=== PATIENT | female | born 1955 | race Caucasian/White ===

== ENCOUNTER 2020-08-25 11:38 | Outpatient (REF) | payer OTHER, SELFPAY ==
[2020-08-25 13:32] LABS: MANUAL DIFF FLAG NO
[2020-08-25 13:38] LABS: Basophils Percent Auto 0.3 % (0-2); Eosinophils Absolute Auto 0.1 X10*3/uL (0.0-0.4); Eosinophils Percent Auto 0.9 % (0-4); Hematocrit 47.2 % (37-47); Imm Gran Abs Auto 0.03 X10*3/uL (0.00-0.03); Imm Gran Pct Auto 0.2 % (0.0-0.4); Lymphocytes Absolute Auto 3.8 X10*3/uL (1.2-4.9); Lymphocytes Percent Auto 28.4 % (20-40); Mean Corpuscular HGB Conc 33.9 g/dl (31.0-35.0); Mean Corpuscular Hemoglobin 30.5 pg (27.0-33.0); Mean Corpuscular Volume 89.9 fL (80-98); Monocytes Absolute Auto 0.8 X10*3/uL (0.1-1.2); Monocytes Percent Auto 5.9 % (2-11); Neutrophils Absolute Auto 8.5 X10*3/uL (2.0-8.3); Neutrophils Percent Auto 64.3 % (45-73); Platelet Count 320 X10*3/uL (160-400); Red Blood Count 5.25 X10*6/uL (4.20-5.50); Red Cell Distribution Width 13.3 % (11.0-16.0); White Blood Count 13.2 X10*3/uL (4.8-10.8)
[2020-08-25 14:12] LABS: Alanine Aminotransferase 16 U/L (0-31); Albumin Level 4.1 g/dL (3.5-5.0); Alkaline Phosphatase 96 U/L (39-117); Anion Gap 14 (12-20); Aspartate Amino Transferase 18 U/L (5-31); Bilirubin Total 0.5 mg/dL (0.0-1.0); Blood Urea Nitrogen 9 mg/dL (9-16); Calcium 8.6 mg/dL (8.4-10.2); Carbon Dioxide 33 mmol/L (22-29); Chloride 92 mmol/L (96-108); Estimated Glomerular Filt Rate > 60; Glucose Fasting 86 mg/dL (60-99); Magnesium 2.1 mg/dL (1.6-2.6); Potassium 3.3 mmol/l (3.3-5.1); Sodium 136 mmol/L (135-145); Total Protein 6.4 g/dL (6.5-8.0)
[2020-08-25 14:23] LABS: Free T4 (Free Thyroxine) 1.07 ng/dL (0.71-1.85); Thyroid Stimulating Hormone 0.52 mIU/mL (0.32-4.0)
[2020-08-25 14:27] LABS: Erythrocyte Sedimentation Rate 12 MM/HR (0-20)
== END 2020-08-25 11:39 | disposition home or self-care (01) ==
LOC: HO.10HDL 11:38
PROVIDERS: PCP Internal Medicine Medical Oncology; Visit Provider Internal Medicine Medical Oncology
DX: I82.409 Acute embolism and thrombosis of unspecified deep veins of unspecified lower extremity (principal); I10 Essential (primary) hypertension; E66.3 Overweight; E78.5 Hyperlipidemia, unspecified
CPT/HCPCS: 36415; 80053; 83735; 84439; 84443; 85025; 85652

== ENCOUNTER 2020-12-07 15:29 | Outpatient (REF) | payer OTHER, SELFPAY | END 2020-12-07 15:30 | disposition home or self-care (01) | LOC: HO.LNP 15:29 | PROVIDERS: Visit Provider Internal Medicine Medical Oncology | DX: H11.441 Conjunctival cysts, right eye (principal); H10.9 Unspecified conjunctivitis | CPT/HCPCS: 87070; 87205 ==

== ENCOUNTER 2021-02-23 14:14 | Outpatient (REF) | payer OTHER, SELFPAY ==
--- NOTE | ~2021-02-23 | MM_ITS ---
EXAMINATION: MM SCREENING DIGITAL BREAST TOMOSYNTHESIS, BILATERAL CLINICAL INFORMATION: Screening. Asymptomatic. 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 Family history breast cancer, mother. The lifetime risk of breast cancer based on the Tyrer-Cuzick Model is 25%. COMPARISON: Mammography: 09/03/2017, and multiple prior exams dating back to 01/04/2010 TECHNIQUE: Digital breast tomosynthesis is performed in both the craniocaudal and mediolateral oblique views along with computer-aided detection (CAD). Synthesized 2D images are generated from the tomosynthesis. FINDINGS: There are scattered areas of fibroglandular density (ACR BI-RADS breast composition Category b). There are no significant masses, abnormal calcifications, or other abnormalities. The axilla and skin contours are unremarkable. There are no significant changes from prior study. MM/MM tomosynthesis screening BI IMPRESSION: No mammographic evidence of malignancy. ASSESSMENT: BI-RADS 1: Negative RECOMMENDATION: 1. Routine annual mammography screening. 2. The lifetime risk of breast cancer based on the Tyrer-Cuzick Model is 25%. Additional annual adjunct screening with breast MRI may be of benefit in women with a risk score of 20% or greater. This patient's information was entered into a reminder system with a target due date for their next mammogram.
== END 2021-02-23 14:15 | disposition home or self-care (01) ==
LOC: HO.MAMMO 14:14
PROVIDERS: PCP Internal Medicine Medical Oncology; Visit Provider Internal Medicine Medical Oncology
DX: Z12.31 Encounter for screening mammogram for malignant neoplasm of breast (principal)
CPT/HCPCS: 77063; 77067

== ENCOUNTER 2022-05-31 15:42 | Outpatient (REF) | payer OTHER, SELFPAY ==
--- NOTE | ~2022-05-31 | MR_ITS ---
EXAMINATION: MR LUMBAR SPINE WITHOUT CONTRAST CLINICAL INFORMATION: Bilateral lower extremity tingling and weakness. Low back pain. COMPARISON: MRI dated 08/21/2019. TECHNIQUE: MRI of the lumbar spine was obtained using routine sequences without contrast. FINDINGS: VERTEBRAL BODIES AND PARASPINAL STRUCTURES: There is a [id number] rightward curvature of the lumbar spine centered at the L1-L2 level. A suspected subacute superior endplate compression fracture is present at the L1 level with minimal bony retropulsion and a mild loss of vertebral body height. No additional compression deformities are seen. There are no subluxations. There is what may represent a bone island in the left L3 pedicle, hypointense on T1-T2 weighted imaging and measuring 9 mm in diameter. Chronic fatty marrow degenerative endplate changes and significant right-sided disc space narrowing evident at the L5-S1 level. CONUS MEDULLARIS AND CAUDA EQUINA: Normal, terminating at the level of L1. No lower cord signal abnormality is seen. The cauda equina nerve roots are normal. SPINAL LEVELS: T12-L1: Mild degenerative disc bulge present without central canal stenosis. Mild facet arthropathy without foraminal encroachment. L1-L2: No significant disc pathology. Mild facet arthrosis. No central canal stenosis or foraminal narrowing. L2-L3: No disc pathology. Patent central canal and foramina. L3-L4: No disc abnormality. Mild facet arthrosis. No central canal stenosis or foraminal encroachment. L4-L5: Minimal annular bulge. No central canal stenosis. Moderate right foraminal narrowing. L5-S1: Mild facet arthropathy and disc bulge with endplate spurring. Mild right foraminal encroachment. MR/MR lumbar spine wo con IMPRESSION: Mild superior endplate compression deformity at the L1 level with minimal bony retropulsion and mild marrow edema, potentially subacute in age. Recommend clinical correlation. Moderate degenerative disc disease lateralized to the right side at the L5-S1 level with mild right foraminal narrowing. Moderate right foraminal encroachment due to bulging disc and osseous spurring at the L4-L5 level.
== END 2022-05-31 15:43 | disposition home or self-care (01) ==
LOC: HO.MRI 15:42
PROVIDERS: Visit Provider Internal Medicine Medical Oncology
DX: M54.16 Radiculopathy, lumbar region (principal)
CPT/HCPCS: 72148

== ENCOUNTER 2022-08-23 15:21 | Outpatient (REF) | payer OTHER, SELFPAY ==
[2022-08-24 06:12] LABS: CT PCR NOT DETECTED (Not Detect.); NG PCR NOT DETECTED (Not Detect.)
[2022-08-29 16:02] LABS: HPV mRNA E6/E7 rflx Not Detected (Not Detected)
== END 2022-08-23 15:22 | disposition home or self-care (01) ==
LOC: HO.LNP 15:21
PROVIDERS: Visit Provider Advanced Practice Midwife
DX: Z01.419 Encounter for gynecological examination (general) (routine) without abnormal findings (principal); R82.90 Unspecified abnormal findings in urine; Z72.0 Tobacco use; Z20.2 Contact with and (suspected) exposure to infections with a predominantly sexual mode of transmission
CPT/HCPCS: 81003; 87491; 87591; 87624; 88142

== ENCOUNTER → 2022-08-31 14:53 | Outpatient (BNVA) | payer OTHER, SELFPAY | PROVIDERS: PCP Internal Medicine Medical Oncology; Referring Provider Internal Medicine Medical Oncology; Visit Provider Internal Medicine Cardiovascular Disease | DX: R07.89 Other chest pain (principal); R06.02 Shortness of breath | CPT/HCPCS: 93005; 99202 ==

== ENCOUNTER → 2022-09-20 12:49 | Outpatient (REF) | payer OTHER, SELFPAY ==
--- NOTE | 2022-09-20 12:52 | CA_ITS ---
Transthoracic Echocardiogram Patient (Last, First, Middle): Jackie Mazariegos, Gender: Female Date of : 1955 Age: 66 Procedure Date: 09/20/2022 Procedure Type: Transthoracic Echocardiogram Location: OP Height: 154.94 cm Weight: 66.23 kg BSA: 1.65 m2 Heart Rate: 96 bpm BP: 120 / 80 mmHg Staff Software Engineer: SB Referring MD: Calin Dent MD Symptoms: R06.02 - Shortness of breath Study Quality: Fair but adequate ECG Rhythm: Sinus Conclusions: - The left ventricular systolic function is normal. The calculated ejection fraction is 60% by biplane method. - No obvious valvular pathology seen on this study. Findings Left Ventricle Normal left ventricular cavity size. There is normal left ventricular wall thickness. The left ventricular systolic function is normal. The calculated ejection fraction is 60% by biplane method. There is no evidence of regional wall motion abnormalities. Diastolic function is normal for age. Right Ventricle Normal right ventricular cavity size. There is normal right ventricular systolic function. (measurement not accurate). Atria Both atria are normal in size. Aortic Valve There is a normal trileaflet aortic valve. There is no aortic valve stenosis. There is no aortic valve regurgitation. Mitral Valve The mitral valve appears normal. There is no mitral valve regurgitation. There is no mitral valve stenosis. Pulmonic Valve The pulmonic valve is likely normal. Tricuspid Valve Normal tricuspid valve structure. There is trace tricuspid valve regurgitation. There is no evidence of pulmonary hypertension. Great Vessels The asc aorta is normal in size. Venous The inferior vena cava is normal in size and collapses greater than 50% with inspiration. Pericardium/Pleural There is no evidence of pericardial effusion. Prior Study Comparison No significant change compared to prior study dated: 06/08/2020. Recommendations, Care & Conclusions No obvious valvular pathology seen on this study. Measurements 2D Linear Measurements IVSd: 1.00 0.6-0.9/0.6-1.0 cm LVIDd: 3.08 3.9-5.3/4.2-5.9 cm LVIDd Index: 1.87 2.4-3.2/2.2-3.1 cm/m2 LVIDs: 2.17 2.0-3.6 cm Ao Root: 3.10 2.1-3.5 cm LA Diam: 3.20 2.7-3.8/3.0-4.0 cm LAIDs Index: 1.94 1.5-2.3 cm/m2 LVOT Diam: 1.90 3.0+(-)1.3 cm 2D Systolic Function EF 4C: 61.50 >55% EF 2C: 57.80 >55% EF BiP: 59.50 >55% Mitral Valve MV Pk E: 0.79 MV PK A: 0.90 MV Decel Time: 161.00 E/A: 0.90 E'Lateral: 8.62 E'Medial: 8.83 E/E' Med: 8.90 E/E' Lat: 9.10 PHT: 47.00 MVA PHT: 4.68 Decel Luna: 4.89 Aortic Valve AoV Pk Flaco: 1.69 AoV Mn Flaco: 1.08 AoV VTI: 0.30 AoV Pk Grad: 11.00 Aov Mn Grad: 6.00 ALIVIA Cont.VTI: 2.69 LVOT LVOT Pk Flaco: 1.48 LVOT Mn Flaco: 1.01 LVOT VTI: 0.28 LVOT Pk Grad: 9.00 LVOT Mn Grad: 5.00 LVOT Diam: 1.90 LVOT Area: 2.84 Diastolic Function MV Pk E: 0.79 MV Pk A: 0.90 E/A: 0.90 E'Medial: 8.83 E/E' Med: 8.90 E' Laterial: 8.62 E/E' Lat: 9.10 Right Ventricle TAPSE (mm): 23.00 TVS' Flaco: 12.30 Tricuspid Valve TR Pk Flaco: 2.47 TR Pk Grad: 24.00 RA Press: 8.00 RVSP: 32.00 Great Vessels Aorta Ao Root-2D: 3.10 2.0-3.7 cm Ao Asc: 3.00 2.1-3.4 cm Updated in Other Vendor System with Status of Final Mansoor Sloan MD electronically signed on 09/23/2022 12:47:47 PM with status of Final
== END ==
LOC: HO.CARD 12:49
PROVIDERS: Visit Provider Internal Medicine Cardiovascular Disease
DX: R06.02 Shortness of breath (principal)
CPT/HCPCS: 93306

== ENCOUNTER 2022-10-19 10:17 | Emergency (ER) | payer OTHER, SELFPAY ==
--- NOTE | ~2022-10-19 | XR_ITS ---
EXAMINATION: XR LUMBOSACRAL SPINE CLINICAL INFORMATION: Pain. COMPARISON: Most recent lumbar spine MRI dated 05/31/2022. TECHNIQUE: Three views of the lumbosacral spine. FINDINGS: Dextrocurvature of the lumbar spine centered at the L2 vertebral body. The lumbar lordosis is maintained. Redemonstration of a compression deformity at L1, similar when compared to the prior MRI. No new loss of vertebral body height. Multilevel loss of intervertebral disc height with endplate osteophytes appears unchanged. Lower lumbar spine facet arthropathy is redemonstrated. Moderate stool burden. XR/XR lumbar spine 2-3V IMPRESSION: 1. Dextrocurvature of the lumbar spine centered at the L2 vertebral body. 2. Chronic compression deformity at L1, unchanged. No new fracture.
--- NOTE | ~2022-10-19 | XR_ITS ---
EXAMINATION: XR CHEST CLINICAL INFORMATION: Cough. Sputum production. COMPARISON: 01/08/2020 TECHNIQUE: 2 views of the chest were obtained. FINDINGS: Mild elevation of left hemidiaphragm. Linear left basilar atelectasis/scarring. No dense consolidation. No pleural effusion or pneumothorax. The cardiomediastinal silhouette is unchanged. Thoracic kyphosis with degenerative changes. XR/XR chest 2V IMPRESSION: Linear left basilar atelectasis/scarring. No consolidation.
--- NOTE | ~2022-10-19 | CT_ITS ---
EXAMINATION: CT HEAD WITHOUT CONTRAST CLINICAL INFORMATION: Dizziness. Back pain. COMPARISON: MRI 01/05/2014. TECHNIQUE: Contiguous axial imaging was performed from the skull base to vertex without intravenous contrast. This CT examination was performed using dose optimization techniques as appropriate, variously including the following: * Automated exposure control * Adjustment of mA and/or kV according to patient size (this includes techniques or standardized protocols for targeted exams where dose is matched to indication/reason for exam; i.e. extremities or head) Use of iterative reconstruction technique DLP: 620 mGy-cm. FINDINGS: There is no evidence of acute intracranial hemorrhage or territorial infarction. No abnormal mass effect or midline shift is seen. López to white matter differentiation is well preserved. No extra-axial fluid collections are identified. No hydrocephalus. Proportional prominence of the ventricles and sulcal spaces is consistent with mild volume loss. Patchy periventricular and deep white matter hypoattenuation is consistent with mild small vessel ischemic changes. The osseous structures and soft tissues are normal. The mastoid air cells and visualized portions of the paranasal sinuses are well aerated. CT/CT head/brain wo IV con IMPRESSION: No acute intracranial pathology. Mild volume loss with small vessel ischemic change.
[2022-10-19 10:41] VITALS: BP 119/69; PULSE 100; RESP 20; TEMP 36.9; O2SAT 94; BMI 20.5
[2022-10-19 11:46] LABS: COVID-19 Test Negative (Negative); IDNOW Serial# 16C4AD1C; IDNOW Serial# BCCEAD1C; Influenza A Negative (Negative); Influenza B2 Negative (Negative)
[2022-10-19] MEDS: Cyclobenzaprine HCl 10 MG TABLET PO (12:05)
[2022-10-19] MEDS: predniSONE 20 MG TABLET 60 MG PO (12:05)
[2022-10-19 12:14] LABS: Appearance Urine Clear; Color Urine Yellow; Glucose Urine UA Negative (Negative); Leukocyte Esterase Urine Trace (Negative); Nitrite Urine Negative (Negative); PH 7.5 (5.0-9.0); Specific Gravity - Urine <= 1.005 (1.005-1.025); UMIC TRIGGER UACC YES; Urine Blood Negative (Negative); Urine Ketones Negative (Negative); Urine Protein Negative (Neg-Trace)
[2022-10-19 12:17] LABS: Bacteria Urine 4+ (None Seen); Hyaline Casts Urine 0-2 /LPF (0-2); RBC Urine 0-2 /HPF (0-2); Squamous Epithelial Cell Urine 0-2 /HPF (0-2); WBC Urine 0-5 /HPF (0-5)
[2022-10-19 12:26] LABS: Amphetamine Screen Urine Not Detected (Not Detect); Barbiturates, Urine Not Detected (Not Detect); Benzodiazepines Screen Urine Not Detected (Not Detect); Cannabinoid Screen Urine POSITIVE (Not Detect); Cocaine Screen Urine POSITIVE (Not Detect); Fentanyl, urine Not Detected (Not Detect); Opiate Screen Urine Not Detected (Not Detect); Phencyclidine Screen Urine Not Detected (Not Detect)
--- NOTE | 2022-10-19 13:37 | ED.BACK ---
HPI - Back Pain/Injury General Chief Complaint: Upper Respiratory Symptoms Stated Complaint: R side pain going into ribs. Time Seen by Provider: 10/19/22 10:55 Source: patient and family Mode of arrival: ambulatory Limitations: no limitations History of Present Illness HPI Narrative: 66yoF c PMHx of arthritis of both knees, asthma, chronic back pain with any recent MRI which revealed fracture which is chronic, depression with anxiety, hyperlipidemia and fibromyalgia who is currently on gabapentin and benzos presenting to the ED with complaints of generalized fatigue/malaise, headaches, nasal congestion /rhinorrhea, cough and lower back pain which is acute on chronic over the past week worse today. Reports that she had an epidural injection back in June and the pain has not gotten any better she feels like it is worse since June. she reports she reports she is taking the gabapentin in the benzos as prescribed and no symptomatic relief. She reports that she recently did 3 lines of cocaine where she snorted the cocaine. She denies any IV drug use. She reports that over the past 2 weeks she feels like she has been walking more towards the left. She denies any fevers, dizziness, neck pain/ stiffness, chest pain or shortness of breath, abdominal pain, nausea /vomiting, diarrhea, black or bloody stools, recent falls or trauma, saddle anesthesias, urinary bowel incontinence or retention, recent falls or trauma, rashes, lower extremity more calf tenderness, dysuria, hematuria, flank pain, abnormal vaginal discharge or any other symptoms complaints or concerns at this time. MD elicited complaint: back pain and other ( And URI complaints) Pertinent past history: prior back pain and arthritis Onset (ago): week(s) (1) Timing: constant and progressively worsening Severity: moderate Similar Symptoms Previously: Yes Quality: aching Location: lumbar spine Radiation: none Exacerbating factors: movement, sitting upright, walking and lifting Relieving factors: none Context: unknown Associated symptoms: chills and other ( cough/nasal congestion and headache) Treatments prior to arrival: other ( see above) Work related injury: No Related Data Home Medications Medication Instructions Recorded Confirmed albuterol sulfate 90 mcg/actuation 2 puff inhalation Q6H PRN 08/23/22 08/31/22 aerosol inhaler aripiprazole 2 mg tablet 2 mg PO BID 08/23/22 08/31/22 atorvastatin 10 mg tablet 10 mg PO DAILY 08/23/22 08/31/22 clonazepam 1 mg tablet 1 mg PO BID 08/23/22 08/31/22 fluticasone 250 mcg-salmeterol 50 1 ea inhalation BID 08/23/22 08/31/22 mcg/dose blistr powdr for inhalation (Alvin Inhub) furosemide 40 mg tablet 40 mg PO BID 08/23/22 08/31/22 hydroxyzine pamoate 25 mg capsule 25 mg PO TID 08/23/22 08/31/22 rivaroxaban 20 mg tablet (Xarelto) 20 mg PO DAILY 08/23/22 08/31/22 duloxetine 20 mg capsule,delayed 40 mg PO DAILY 08/31/22 08/31/22 release duloxetine 60 mg capsule,delayed 60 mg PO DAILY 08/31/22 08/31/22 release gabapentin 300 mg capsule 300 mg PO DAILY 08/31/22 08/31/22 Previous Rx's Medication Instructions Recorded cefuroxime axetil 250 mg tablet 250 mg PO BID 7 days #14 tabs 10/19/22 cyclobenzaprine 10 mg tablet 10 mg PO Q8H #14 tabs 10/19/22 prednisone 20 mg tablet 40 mg PO DAILY inflammation 5 days 10/19/22 #10 tabs Allergies Allergy/AdvReac Type Severity Reaction Status Date / Time No Known Allergies Allergy Verified 08/23/22 14:42 Review of Systems Review of Systems: Constitutional : + chills/fatigue/malaise, No Weight loss, No Fever, no night sweats ENT/Mouth : No Hearing loss, No Ear Pain, + Nasal Congestion, No Sinus Pain, No Hoarseness, No sore throat, + Rhinorrhea, No Swallowing Difficulty Eyes: No Eye Pain, No Swelling, No Redness, No Foreign Body, No Discharge, No Vision Changes Cardiovascular : No Chest Pain, No SOB, No Dyspnea on Exertion, No Orthopnea, No Edema, No Palpitations Respiratory : + Cough, + Sputum, No Wheezing, No Smoke Exposure, No Dyspnea Gastrointestinal : No Nausea, No Vomiting, No Diarrhea, No Constipation, No abdominal Pain, No Hematochezia, No Melena Genitourinary : no irregular bleeding, No Dysuria, No Urinary Frequency, No Hematuria, No Urinary Incontinence, No Urgency, No Flank Pain, No Urinary Flow Changes, No Hesitancy Musculoskeletal : + back pain, No joint pain, No Myalgias, No Joint Swelling Skin : No Skin Lesions, No rash Neuro : No Weakness, No Numbness, No Paresthesias, No Loss of Consciousness, No Dizziness, + Headache Psych : No Anxiety/Panic, No Depression, No SI/HI/AH/VH, No Social Issues, Heme/Lymph: No Bruising, No Bleeding,No Lymphadenopathy Endocrine : No Polyuria, No Polydipsia, No Temperature Intolerance Yes all other systems are reviewed and are negative [facility] [place] Past Medical History Attestation statement: The following information was validated with the patient. Source: old records reviewed, obtained from family and nursing notes reviewed Medical History Arthritis of both knees Asthma Back pain Depression with anxiety High cholesterol History of fibromyalgia Surgical History H/O knee surgery Hx of dilation and curettage Hx of tonsillectomy Family History Family History Brother Cancer of pancreas Social History Social History Alcohol intake: never Patient Tobacco Use Status: Current everyday Tobacco user Cigarettes Per Day: 15 Advance Directives: No Physical Exam Vital Signs: Vital Signs: Last Vital Signs Temp 98.4 F 10/19/22 10:41 Pulse 100 10/19/22 10:41 Resp 20 10/19/22 10:41 BP 119/69 10/19/22 10:41 Pulse Ox 94 10/19/22 10:41 O2 Del Method 10/19/22 10:41 BMI result Body Mass Index 20.5 vital signs have been reviewed as normal and appeared to be correct. Blood pressure normal. Heart rate normal. Respiration rate normal. Temperature normal. Oxygen saturation normal. Appearance: Alert. Oriented X3. No acute distress. Head: Normal external exam. Normocephalic. Atraumatic. Eyes: PERRLA. EOMI. Conjunctiva and sclera normal. Eyelids normal. ENT: EAC normal. TM's Normal. Pharynx normal. Uvula midline. Moist mucous membranes. No trismus noted. No drooling noted. No muffled voice noted. Neck: Normal inspection. Neck supple. FROM. No adenopathy. Thyroid Normal. No meningeal signs. No neck mass noted. CVS: Normal heart rate and rhythm. Heart sound normal. No murmurs noted. Pulses normal throughout. Respiratory: No respiratory distress. Painless inspiration. Breath sounds normal. No wheezes/rales/rhonchi noted. Chest nontender. No accessory muscle usage noted or decreased air movement noted. Abdomen: Soft and nontender. Bowel sounds normal in all 4 quadrants. No distention noted. No organomegaly noted. No visible injury noted. Back: No CVA tenderness. Full range of motion noted. No obvious deformities, or edema. Mild para-spinal muscular tenderness from lumbar region to coccyx. Full ROM in back and lower extremities. 5/5 strength hip extension/flexion, abduction, adduction. Mild Lumbar pain with hip flexion against resistance. Straight leg raise test negative on right; Straight leg raise test negative on left; Reflexes normal ankle and knee bilaterally; EHL motor strength normal bilaterally. No rashes/lesion/induration/fluctuance or signs infection noted. Skin: Skin warm and dry. Normal skin color. Normal skin turgor. No rashes/lesions/lacerations noted. Extremities: No lower extremity edema. Extremities exhibit normal range of motion. Extremities nontender. Neuro: Oriented X 3. No motor deficit. No sensory deficit. Reflexes normal. Patient has a normal steady gait. Course Course Course Narrative: Pt c likely muscular pain, but could be herniated disc. Neuro exam shows no deficits. Not c/w AAA/epidural abscess/dissection.No high risk Hx (Incont, fever, immunosupp, recent surgery/LP, coag, signif trauma, wt loss, puls mass, hx/o Ca, TB, or IVDU) to warrant MRI/CT today. Not c/w Pyelo/kidney stone/spinal fx. Not cauda equina syndrome. UA revealed a trace of leukocytes therefore patient most likely a UTI. Patient positive for cocaine and marijuana. Negative for all other drugs. Patient negative for COVID/influenza. CT scan of brain within normal limits no acute processes noted. Chest x-ray within normal limits no acute processes are noted. Lumbar spine x-ray revealed degenerative changes and scoliosis with the chronic compression deformity at L1 no other acute processes. Therefore explained to the patient that most likely she has most likely bronchitis/UTI with acute on chronic back pain. patient will be sent home with Flexeril antibiotics and prednisone instructions return if any new or worsening symptoms. Patient understands agrees with this plan. Medications Administered Discontinued Medications Generic Name Dose Route Start Last Admin Trade Name Marie PRN Reason Stop Dose Admin Cyclobenzaprine HCl 10 mg 10/19/22 11:58 10/19/22 12:05 Cyclobenzaprine Hcl 10 Mg Tablet PO 10/19/22 11:59 10 mg ONCE ONE Administration Prednisone 60 mg 10/19/22 11:58 10/19/22 12:05 Prednisone 20 Mg Tablet PO 10/19/22 11:59 60 mg ONCE ONE Administration Medical Decision Making Lab Data MDM Lab Attestation statement: I reviewed the patient's lab results. Labs: Lab Results 10/19/22 10/19/22 10/19/22 Range/Units 11:11 11:11 11:58 Urine Color Urine Appearance Urine pH (5.0-9.0) Ur Specific [place] (1.005-1.025) Urine Protein (Neg-Trace) mg/dL Urine Glucose (UA) (Negative) mg/dL Urine Ketones (Negative) mg/dL Urine Blood (Negative) Urine Nitrite (Negative) Ur Leukocyte Esterase (Negative) Urine RBC (0-2) /HPF Urine WBC (0-5) /HPF Ur Squamous Epith Cells (0-2) /HPF Urine Bacteria (None Seen) Hyaline Casts (0-2) /LPF Urine Opiates Screen Not Detected (Not Detect) Urine Fentanyl Screen Not Detected (Not Detect) Ur Barbiturates Screen Not Detected (Not Detect) Ur Phencyclidine Scrn Not Detected (Not Detect) Ur Amphetamines Screen Not Detected (Not Detect) U Benzodiazepines Scrn Not Detected (Not Detect) Urine Cocaine Screen POSITIVE H (Not Detect) U Marijuana (THC) Screen POSITIVE H (Not Detect) COVID-19 (DANIA) Negative (Negative) COVID-19 Clin Com See Note Influenza Type A (DEEPTHI) Negative (Negative) Influenza Type B (DEEPTHI) Negative (Negative) Influenza A & B Note See Note 10/19/22 Range/Units 11:58 Urine Color Yellow Urine Appearance Clear Urine pH 7.5 (5.0-9.0) Ur Specific [place] <= 1.005 (1.005-1.025) Urine Protein Negative (Neg-Trace) mg/dL Urine Glucose (UA) Negative (Negative) mg/dL Urine Ketones Negative (Negative) mg/dL Urine Blood Negative (Negative) Urine Nitrite Negative (Negative) Ur Leukocyte Esterase Trace H (Negative) Urine RBC 0-2 (0-2) /HPF Urine WBC 0-5 (0-5) /HPF Ur Squamous Epith Cells 0-2 (0-2) /HPF Urine Bacteria 4+ (None Seen) Hyaline Casts 0-2 (0-2) /LPF Urine Opiates Screen (Not Detect) Urine Fentanyl Screen (Not Detect) Ur Barbiturates Screen (Not Detect) Ur Phencyclidine Scrn (Not Detect) Ur Amphetamines Screen (Not Detect) U Benzodiazepines Scrn (Not Detect) Urine Cocaine Screen (Not Detect) U Marijuana (THC) Screen (Not Detect) COVID-19 (DANIA) (Negative) COVID-19 Clin Com Influenza Type A (DEEPTHI) (Negative) Influenza Type B (DEEPTHI) (Negative) Influenza A & B Note Independent Interpretation Interpretation: CT scan of brain without contrast FINDINGS: There is no evidence of acute intracranial hemorrhage or territorial infarction. No abnormal mass effect or midline shift is seen. López to white matter differentiation is well preserved. No extra-axial fluid collections are identified. No hydrocephalus. Proportional prominence of the ventricles and sulcal spaces is consistent with mild volume loss. Patchy periventricular and deep white matter hypoattenuation is consistent with mild small vessel ischemic changes. The osseous structures and soft tissues are normal. The mastoid air cells and visualized portions of the paranasal sinuses are well aerated. ? CT/CT head/brain wo IV con IMPRESSION: No acute intracranial pathology. Mild volume loss with small vessel ischemic change. chest x-ray revealed FINDINGS: Mild elevation of left hemidiaphragm. Linear left basilar atelectasis/scarring. No dense consolidation. No pleural effusion or pneumothorax. The cardiomediastinal silhouette is unchanged. Thoracic kyphosis with degenerative changes. XR/XR chest 2V IMPRESSION: Linear left basilar atelectasis/scarring. No consolidation. lumbar spine x-ray FINDINGS: Dextrocurvature of the lumbar spine centered at the L2 vertebral body. The lumbar lordosis is maintained. Redemonstration of a compression deformity at L1, similar when compared to the prior MRI. No new loss of vertebral body height. Multilevel loss of intervertebral disc height with endplate osteophytes appears unchanged. Lower lumbar spine facet arthropathy is redemonstrated. Moderate stool burden. XR/XR lumbar spine 2-3V IMPRESSION: 1. Dextrocurvature of the lumbar spine centered at the L2 vertebral body. ? 2. Chronic compression deformity at L1, unchanged. No new fracture. Discharge Plan Discharge Clinical Impression: Chronic back pain, Bronchitis, UTI (urinary tract infection) Patient Disposition: Home, Self-Care Instructions: Acute Bronchitis (ED), Chronic Back Pain (DC), Urinary Tract Infection in Older Adults (ED) Prescriptions: New cyclobenzaprine 10 mg tablet 10 mg PO Q8H Qty: 14 0RF cefuroxime axetil 250 mg tablet 250 mg PO BID 7 Days Qty: 14 0RF prednisone 20 mg tablet 40 mg PO DAILY 5 Days Qty: 10 0RF No Action duloxetine 60 mg capsule,delayed release(DR/EC) 60 mg PO DAILY atorvastatin 10 mg tablet 10 mg PO DAILY clonazepam 1 mg tablet 1 mg PO BID albuterol sulfate 90 mcg/actuation HFA aerosol inhaler 2 puff inhalation Q6H PRN fluticasone propion-salmeterol [Wixela Inhub] 250-50 mcg/dose blister with device 1 ea inhalation BID furosemide 40 mg tablet 40 mg PO BID aripiprazole 2 mg tablet 2 mg PO BID hydroxyzine pamoate 25 mg capsule 25 mg PO TID Xarelto 20 mg tablet 20 mg PO DAILY duloxetine 20 mg capsule,delayed release(DR/EC) 40 mg PO DAILY gabapentin 300 mg capsule 300 mg PO DAILY Referrals: Jamie Casanova MD [Primary Care Provider] - 1 day Interventions: ED Discharge Assessment Last Done: 10/19/22 14:00 Discharge Date/Time: 10/19/22 14:00
== END 2022-10-19 14:00 | disposition home or self-care (01) ==
PROVIDERS: Physician Assistant Medical; Emergency Provider Emergency Medicine Emergency Medical Services; PCP Internal Medicine Medical Oncology
DX: G89.29 Other chronic pain (principal); M54.50 Low back pain, unspecified; J40 Bronchitis, not specified as acute or chronic; N39.0 Urinary tract infection, site not specified; Z20.822 Contact with and (suspected) exposure to COVID-19; E78.5 Hyperlipidemia, unspecified; F17.210 Nicotine dependence, cigarettes, uncomplicated; F12.90 Cannabis use, unspecified, uncomplicated; Z79.02 Long term (current) use of antithrombotics/antiplatelets; Z79.899 Other long term (current) drug therapy
CPT/HCPCS: 70450; 71046; 72100; 80307; 81001; 87502; 87635; 99283; 99284

== ENCOUNTER 2022-10-26 09:33 | Outpatient (REF) | payer OTHER, SELFPAY ==
[2022-10-26 10:21] LABS: MANUAL DIFF FLAG NO
[2022-10-26 10:33] LABS: Basophils Percent Auto 0.2 % (0-2); Eosinophils Percent Auto 0.1 % (0-4); Hematocrit 46.2 % (37.0-47.0); Hemoglobin 15.9 g/dl (12.0-16.0); Imm Gran Abs Auto 0.18 X10*3/uL (0.00-0.03); Lymphocytes Absolute Auto 2.1 X10*3/uL (1.2-4.9); Lymphocytes Percent Auto 11.9 % (20-40); Mean Corpuscular HGB Conc 34.4 g/dl (31.0-35.0); Mean Corpuscular Hemoglobin 29.9 pg (27.0-33.0); Mean Corpuscular Volume 86.8 fL (80.0-98.0); Mean Platelet Volume 10.1 fL (9.4-12.3); Monocytes Absolute Auto 0.7 X10*3/uL (0.1-1.2); Monocytes Percent Auto 3.7 % (2-11); Neutrophils Absolute Auto 14.5 x10*3/uL (2.0-8.3); Neutrophils Percent Auto 83.1 % (45-73); Platelet Count 377 X10*3/uL (160-400); Red Blood Count 5.32 X10*6/uL (4.20-5.50); Red Cell Distribution Width 13.5 % (11.0-16.0); White Blood Count 17.4 X10*3/uL (4.8-10.8)
[2022-10-26 11:36] LABS: Alanine Aminotransferase 19 U/L (0-31); Alkaline Phosphatase 98 U/L (39-117); Anion Gap 13 (12-20); Aspartate Amino Transferase 15 U/L (5-31); Bilirubin Total 0.6 mg/dL (0.0-1.0); Blood Urea Nitrogen 22 mg/dL (9-16); Calcium 9.3 mg/dL (8.4-10.2); Carbon Dioxide 35 mmol/L (22-29); Chloride 92 mmol/L (96-108); Cholesterol 187 mg/dL; Estimated Glomerular Filt Rate > 60; Glucose Random 100 mg/dL (60-115); HDL Cholesterol 48 mg/dL; LDL Cholesterol Calculated 108 mg/dl; Magnesium 2.3 mg/dL (1.6-2.6); Potassium 3.9 mmol/L (3.3-5.1); Sodium 136 mmol/L (135-145); Thyroid Stimulating Hormone 0.13 uIU/mL (0.32-4.0); Total Protein 6.3 g/dL (6.5-8.0); Triglycerides 157 mg/dL
[2022-10-26 12:51] LABS: Free T4 (Free Thyroxine) 0.98 ng/dL (0.71-1.85)
[2022-10-26 13:57] LABS: Appearance Urine Clear; Color Urine Yellow; Glucose Urine UA Negative (Negative); Leukocyte Esterase Urine Negative (Negative); Nitrite Urine Negative (Negative); Urine Blood Negative (Negative); Urine Ketones Negative (Negative); Urine Protein Negative (Neg-Trace)
== END 2022-10-26 09:34 | disposition home or self-care (01) ==
LOC: HO.10HDL 09:33
PROVIDERS: Visit Provider Internal Medicine Medical Oncology
DX: J44.9 Chronic obstructive pulmonary disease, unspecified (principal); I10 Essential (primary) hypertension; E78.5 Hyperlipidemia, unspecified; N39.0 Urinary tract infection, site not specified; R31.9 Hematuria, unspecified
CPT/HCPCS: 36415; 80053; 80061; 81003; 83735; 84439; 84443; 85025; 87086

== ENCOUNTER 2022-10-29 13:37 | Inpatient (IN) | payer OTHER, SELFPAY ==
[2022-10-29] VITALS (15 sets, daily range): BP systolic 86–140; BP diastolic 45–106; PULSE 77–122; RESP 13–22; TEMP 36.6–37.1; O2SAT 86–97; BMI 25.9
--- NOTE | ~2022-10-29 | XR_ITS ---
EXAMINATION: XR chest 2V CLINICAL INFORMATION: Reason for Exam SOB COMPARISON: 10/19/2022 TECHNIQUE: XR chest 2V Lungs and Gabriela: Patchy nodular opacity projecting over the right upper lobe between the fifth and sixth posterior rib could be a lung nodule versus patchy infiltrates. Lungs are hyperinflated suggesting underlying air trapping disease. Pleura: Blunting of costophrenic angle suggesting subpulmonic pleural effusions. Heart: The heart is normal in size. Mediastinum: The mediastinum is within normal limits.. Bones: Skeletal structures included are normal for patient's age. XR/XR chest 2V IMPRESSION: Newly developed Patchy nodular opacity projecting over the right upper lobe concerning for possible lung lesion versus patchy infiltrates. Clinical correlation recommended. Follow-up imaging chest x-ray or CT scan in one month recommended. Bilateral subpulmonic pleural effusions. Hyperinflated lung suggest underlying air trapping disease.
--- NOTE | ~2022-10-29 | US_ITS ---
EXAMINATION: US PELVIS CLINICAL INFORMATION: Ovarian mass/cyst COMPARISON: CT abdomen of October 29, 2022 TECHNIQUE: Ultrasound of the pelvis is performed using transabdominal l transducers along with Doppler. Patient refused transvaginal study. FINDINGS: Uterus: The uterus is anteverted and measures 5.3 x 1.9 x 4.0 cm. No cervical abnormality is appreciated. The double wall endometrial thickness is 0.5 mm. The uterus is smooth in contour and has normal myometrial echogenicity. No visible fibroid. Adnexa: The right ovary was not identified. No right adnexal masses appreciated.. The left ovary measures 4.4 x 2.5 x 3.5 cm in size with a volume of 19.5 mL. There is a 2.8 x 2.7 x 2.4 cm cyst present with no intramural nodule or intravascular flow identified and with good through sound transmission with smooth back wall. No suspicious left adnexal mass appreciated. There is no pelvic ascites or fluid collection. US/US pelvic complete IMPRESSION: 2.8 cm left ovarian cyst.
--- NOTE | ~2022-10-29 | CT_ITS ---
EXAMINATION: CT CHEST, ABDOMEN AND PELVIS with contrast CLINICAL INFORMATION: Cough, shortness of breath, bilateral flank pain. COMPARISON: None TECHNIQUE: Multidetector volumetric CT imaging of the chest abdomen and pelvis obtained Axial MIP volume rendering provided. Sagittal and coronal reformatted images were obtained. This CT examination was performed using dose optimization techniques as appropriate, variously including the following: *Automated exposure control *Adjustment of mA and/or kV according to patient size (this includes techniques or standardized protocols for targeted exams where dose is matched to indication/reason for exam; i.e. extremities or head) *Use of iterative reconstruction technique CONTRAST: 85 mL Omnipaque 350 injected Reformatted coronal and sagittal imaging was performed. DLP: 728 mGy-cm FINDINGS: CAR WHACKER, LINES TUBES: Social Worker reviewed, no lines. LUNGS: Interstitial: Moderate to severe central and peripheral paraseptal emphysema especially involving upper lobes. Nonspecific mild peripheral interstitial groundglass changes at lower lobe and lingula. Mild infiltrate and Subsegmental atelectasis at lingula base and right lower lobe. Lung nodules: There is nodule right upper lobe measures 9 x 9 mm with a spiculated margin and adjacent scar. There are no lung masses. AIRWAYS: Trachea and bronchi are normal. PLEURA: No pleural effusion or pneumothorax. MEDIASTINUM AND DUGLAS: The visualized thyroid gland is unremarkable. No mediastinal, hilar or axillary lymphadenopathy. There is no mediastinal mass. THORACIC AORTA: Thoracic aorta is normal in size. CHEST WALL, LOWER NECK, SURROUNDING SOFT TISSUES: Normal HEART AND PERICARDIUM: Heart is normal in size. There is no pericardial effusion. No significant coronary calcification. HEPATOBILIARY: No focal hepatic lesions. No biliary ductal dilatation. GALLBLADDER: Gallbladder unremarkable. SPLEEN: Spleen is normal in size. PANCREAS: No focal mass or ductal dilatation. GI TRACT: No distention or wall thickening. No CT evidence of appendicitis. ADRENALS: No adrenal nodules. KIDNEYS/URETERS: Small simple cysts right kidney anterior cortex 9 mm, kidneys otherwise homogeneously enhancing, no stone or hydronephrosis, perinephric fat are clear. PELVIC ORGANS/BLADDER: Urinary bladder is markedly distended. Cystic structure in the left side of the pelvis adjacent to the iliac vessels measures 3.4 x 3 cm, could be from left ovarian origin. There is no free air or fluid. No adenopathy. PERITONEUM: No free air or fluid. LYMPH NODES: no retroperitoneal or mesenteric lymphadenopathy. VASCULAR:Mild vascular calcifications, no aneurysm. BONES, ABDOMINAL WALL AND SOFT TISSUES: Sclerotic density in the left pedicle of L3 and left femoral neck, probably bone islands. Degenerative changes of the lumbar spine and pelvis. No destructive bone lesion. CT/CT abdomen pelvis w IV con IMPRESSION: * No CT evidence of acute intra-abdominal process to explain patient's pain symptoms. No kidney stone or hydronephrosis. * Cystic structure in the left side of the pelvis adjacent to the iliac vessels 3.4 cm, could be from left ovarian origin, consider correlation with follow-up pelvic ultrasound. * Mild infiltrates and Subsegmental atelectasis at lower lobes and lingula base, Moderate to severe pulmonary emphysema. * There is 9 mm SPICULATED NODULE RIGHT UPPER LOBE with adjacent scar. Various management parameters for solitary pulmonary nodules are in the literature. According to the UPDATED 2017 Fleischner Society recommendations, the advised follow-up imaging for a single solid nodule measuring 8 mm or greater is: Consider CT, PET/CT, or tissue sampling at 3 months. Reference: Guidelines for Management of Incidental Pulmonary Nodules Detected on CT Images: From the Fleischner Society 2017. * Sclerotic densities in the left pedicle of L3 and left femoral neck, probably bone islands. * Urinary bladder is markedly distended. Consider decompression. (Referring physician staff is being called, to be alerted of the above findings and recommendations.) PSA EM
--- NOTE | 2022-10-29 13:50 | ED_ITS ---
HPI - General Adult General Chief complaint: Abdominal Pain <MASON Owens - Last Filed: 10/29/22 13:51> Stated complaint: ?uti <MASON Owens - Last Filed: 10/29/22 13:51> Time Seen by Provider: 10/29/22 15:52 <MASON Owens - Last Filed: 10/29/22 13:51> Source: patient <MASON Owens - Last Filed: 10/29/22 13:51> patient <MASON Whitt - Last Filed: 10/29/22 21:29> Mode of arrival: ambulatory <MASON Owens - Last Filed: 10/29/22 13:51> ambulatory <MASON Whitt - Last Filed: 10/29/22 21:29> Limitations: no limitations <MASON Owens - Last Filed: 10/29/22 13:51> no limitations <MASON Whitt - Last Filed: 10/29/22 21:29> History of Present Illness HPI narrative: 66 yo female with history of COPD, smoker since age 16, 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 She reports she also has worsening SOB and cough along with sore throat for the last few days as well. She states she has pain in her back that starts in her spine and radiates to her flanks and now her abdomen, right side is significantly worse than the left. She was seen here on 10/19 for malaise, URI symptoms, cough and lower back pain - diagnosed with bronchitis, UTI and d/c home with prednisone, ceftin, flexeril with improvement in her symptoms. <MASON Whitt - Last Filed: 10/29/22 21:29> MD complaint: back pain radiating to her abdomen R>L <MASON Whitt - Last Filed: 10/29/22 21:29> Onset (ago): day(s) <MASON Whitt Last Filed: 10/29/22 21:29> Location: back <MASON Whitt - Last Filed: 10/29/22 21:29> Radiation: abdomen <MASON Whitt - Last Filed: 10/29/22 21:29> Severity: severe <MASON Whitt - Last Filed: 10/29/22 21:29> Severity scale (1-10): 10 <MASON Whitt - Last Filed: 10/29/22 21:29> Quality: stabbing <MASON Whitt - Last Filed: 10/29/22 21:29> Pain Consistency: constant <MASON Whitt - Last Filed: 10/29/22 21:29> Relieving factors: none <MASON Whitt - Last Filed: 10/29/22 21:29> Exacerbating factors: movement <MASON Whitt - Last Filed: 10/29/22 21:29> Associated symptoms: cough, loss of appetite, malaise, nausea/vomiting, shortness of breath and weakness <MASON Whitt - Last Filed: 10/29/22 21:29> Treatments prior to arrival: none <MASON Whitt - Last Filed: 10/29/22 21:29> Related Data Home medications: Home Medications Medication Instructions Recorded Confirmed albuterol sulfate 90 mcg/actuation 2 puff inhalation Q6H PRN 08/23/22 08/31/22 aerosol inhaler aripiprazole 2 mg tablet 2 mg PO BID 08/23/22 08/31/22 atorvastatin 10 mg tablet 10 mg PO DAILY 08/23/22 08/31/22 clonazepam 1 mg tablet 1 mg PO BID 08/23/22 08/31/22 fluticasone 250 mcg-salmeterol 50 1 ea inhalation BID 08/23/22 08/31/22 mcg/dose blistr powdr for inhalation (Wixela Inhub) furosemide 40 mg tablet 40 mg PO BID 08/23/22 08/31/22 hydroxyzine pamoate 25 mg capsule 25 mg PO TID 08/23/22 08/31/22 rivaroxaban 20 mg tablet (Xarelto) 20 mg PO DAILY 08/23/22 08/31/22 duloxetine 20 mg capsule,delayed 40 mg PO DAILY 08/31/22 08/31/22 release duloxetine 60 mg capsule,delayed 60 mg PO DAILY 08/31/22 08/31/22 release gabapentin 300 mg capsule 300 mg PO DAILY 08/31/22 08/31/22 Previous Rx's Medication Instructions Recorded cefuroxime axetil 250 mg tablet 250 mg PO BID 7 days #14 tabs 10/19/22 cyclobenzaprine 10 mg tablet 10 mg PO Q8H #14 tabs 10/19/22 prednisone 20 mg tablet 40 mg PO DAILY inflammation 5 days 10/19/22 #10 tabs <MASON Owens - Last Filed: 10/29/22 13:51> Allergies/adverse reactions: Allergies Allergy/AdvReac Type Severity Reaction Status Date / Time No Known Allergies Allergy Verified 08/23/22 14:42 <MASON Owens - Last Filed: 10/29/22 13:51> Review of Systems Review of Systems: Yes all other systems are reviewed and are negative <MASON Whitt - Last Filed: 10/29/22 21:29> [facility] Past Medical History Medical History: Medical History Arthritis of both knees Asthma Back pain Depression with anxiety High cholesterol History of fibromyalgia <MASON Owens - Last Filed: 10/29/22 13:51> Surgical History: Surgical History H/O knee surgery Hx of dilation and curettage Hx of tonsillectomy <MASON Owens - Last Filed: 10/29/22 13:51> Family History Family History: Family History Brother Cancer of pancreas <MASON Owens - Last Filed: 10/29/22 13:51> Social History Social History: Social History Alcohol intake: never Patient Tobacco Use Status: Current everyday Tobacco user Cigarettes Per Day: 15 Smoked in Last 30 Days: Yes Use of substances other than those prescribed or required for medical reasons: Yes Substance Use Type: Marijuana Substance Use Frequency: Daily Advance Directives: Yes Advance Directives on File: No <MASON Owens - Last Filed: 10/29/22 13:51> Physical Exam ED Vital Signs: Vital Signs - 24 hr 10/29/22 13:49 10/29/22 16:00 10/29/22 16:45 Temperature 98 F 98.7 F 98.7 F Pulse Rate 122 H 112 H 91 Respiratory Rate 19 18 19 Blood Pressure 140/91 H 107/81 119/69 Pulse Oximetry 91 L 93 92 Oxygen Delivery Method Room Air Room Air Room Air Oxygen Flow Rate 4 10/29/22 18:00 10/29/22 18:24 10/29/22 18:42 Temperature Pulse Rate 98 100 93 Respiratory Rate 13 Blood Pressure 116/60 116/60 94/61 Pulse Oximetry 92 Oxygen Delivery Method Nasal Cannula Oxygen Flow Rate 2 10/29/22 16:32 10/29/22 19:53 10/29/22 19:59 Temperature 98.3 F Pulse Rate 93 92 Respiratory Rate 18 17 Blood Pressure 110/54 L Pulse Oximetry 86 L 93 Oxygen Delivery Method Room Air Nasal Cannula Oxygen Flow Rate 3 10/29/22 21:03 Temperature Pulse Rate 84 Respiratory Rate 22 H Blood Pressure 124/106 H Pulse Oximetry 97 Oxygen Delivery Method Nasal Cannula Oxygen Flow Rate 3 BMI result Body Mass Index 25.9 <MASON Owens Last Filed: 10/29/22 13:51> Vital Signs - 24 hr 10/29/22 13:49 10/29/22 16:00 10/29/22 16:45 Temperature 98 F 98.7 F 98.7 F Pulse Rate 122 H 112 H 91 Respiratory Rate 19 18 19 Blood Pressure 140/91 H 107/81 119/69 Pulse Oximetry 91 L 93 92 Oxygen Delivery Method Room Air Room Air Room Air Oxygen Flow Rate 4 10/29/22 18:00 10/29/22 18:24 10/29/22 18:42 Temperature Pulse Rate 98 100 93 Respiratory Rate 13 Blood Pressure 116/60 116/60 94/61 Pulse Oximetry 92 Oxygen Delivery Method Nasal Cannula Oxygen Flow Rate 2 10/29/22 16:32 10/29/22 19:53 10/29/22 19:59 Temperature 98.3 F Pulse Rate 93 92 Respiratory Rate 18 17 Blood Pressure 110/54 L Pulse Oximetry 86 L 93 Oxygen Delivery Method Room Air Nasal Cannula Oxygen Flow Rate 3 10/29/22 21:03 Temperature Pulse Rate 84 Respiratory Rate 22 H Blood Pressure 124/106 H Pulse Oximetry 97 Oxygen Delivery Method Nasal Cannula Oxygen Flow Rate 3 BMI result Body Mass Index 25.9 <MASON Whitt - Last Filed: 10/29/22 21:29> Appearance: Alert. Oriented X3. Appears uncomfortable. Eyes: Pupils equal, round and reactive to light. ENT: Pharynx with diffuse white patches on the tongue, moist mucus membranes. Neck: Right supraclavicular fullness and tenderness, no overlying skin changes. Neck supple. CVS: Normal heart rate and rhythm. Pulses normal. Respiratory: No respiratory distress. Abdomen: Skin: Skin warm and dry. Normal skin color. Normal skin turgor. No rashes. Extremities: No lower extremity edema. Neuro: Oriented X 3. No motor deficit. No sensory deficit. <MASON Whitt - Last Filed: 10/29/22 21:29> Course Course Course Narrative: RME performed by Mihaela Hubbard PA-C. Patient is a 66 year old female presenting to the emergency department with bilateral flank pain. Patient is having a sore throat as well. Patient recently completed abx for a UTI. Labs ordered. Patient placed back in the waiting room pending results and room availability. <MASON Owens - Last Filed: 10/29/22 13:51> Reevaluation(s) Reevaluation #1: 66 yo female seen in treatment room at this time. WBC 30.6. HR 122. Spo2 91% on RA. Sepsis alert called - IVF bolus 30cc/kg and zosyn ordered for broad coverage. Lactic acid and blood cultures are now pending. She has both resp and abd complaints. She is tachycardic and in pain. She has been on prednisone recently but 30.6 WBC count seems out of proportion to steroids that ended a few days ago. On review of her labs, she does have a chronic leukocytosis with WBC 17.4 on 10/26. She will require admission to the hospital. <MASON Whitt Last Filed: 10/29/22 21:29> Time: 15:56 <MASON Whitt Last Filed: 10/29/22 21:29> Reevaluation #2: Lactic acid 1.3. Patient sleeping after 1mg dilaudid, arouses to voice and still c/o severe pain. SpO2 dropped to 85% so now on 1L NC, SpO2 92%. <MASON Whitt - Last Filed: 10/29/22 21:29> Time: 16:45 <MASON Whitt - Last Filed: 10/29/22 21:29> Reevaluation #3: Patient now on 3 L nasal cannula saturating 94%. CT scan showing a 9 mm spiculated nodule in the right upper lobe of the lung. There are mild infiltrates and subsegmental atelectasis of the bilateral lower lobes and the base of the lingula with moderate to severe pulmonary emphysema. She has increased wheezing in the left lung. Will give a albuterol neb 5mg now. Results of CT scan d/w patient including concern for cancer. Will plan to admit for further management. <MASON Whitt - Last Filed: 10/29/22 21:29> Time: 19:39 <MASON Whitt - Last Filed: 10/29/22 21:29> Medications Administered Discontinued Medications Generic Name Dose Route Start Last Admin Trade Name Freq PRN Reason Stop Dose Admin Albuterol Sulfate 2.5 mg/ 5 mg 10/29/22 19:39 10/29/22 19:53 Albuterol Sulfate 2.5 mg INHALE 10/29/22 19:40 5 mg ONCE ONE Administration Hydromorphone HCl 1 mg 10/29/22 16:19 10/29/22 16:32 Hydromorphone Hcl 1 Mg/Ml Syringe IVPUSH 10/29/22 16:20 1 mg ONCE ONE Administration Protocol Sodium Chloride 1,864.26 mls @ 1,864.26 mls/hr 10/29/22 15:58 10/29/22 18:20 Ns 30 ml/kg infuse over 1 hr (1864.26 ml) 10/29/22 16:57 Infused IV Infusion .Q1H STA Piperacillin Sod/Tazobactam 100 mls @ 200 mls/hr 10/29/22 16:10 10/29/22 17:03 Sod 4.5 gm/ Sodium Chloride IV 10/29/22 16:39 Infused ONCE ONE Infusion Iohexol 100 ml 10/29/22 18:32 10/29/22 18:32 Iohexol 350 Mg/Ml 100 Ml Infus..Btl IV 10/29/22 18:33 85 ml ONCE ONE Administration Nystatin 400,000 unit 10/29/22 19:05 10/29/22 19:35 Nystatin Oral Susp 500,000 Unit/5 Ml Oral.Susp PO 10/29/22 19:06 400,000 unit ONCE ONE Administration Protocol Ondansetron HCl 4 mg 10/29/22 16:19 10/29/22 16:32 Ondansetron Hcl 4 Mg/2 Ml Vial IVPUSH 10/29/22 16:20 4 mg ONCE ONE Administration Potassium Chloride 40 meq 10/29/22 19:15 10/29/22 19:36 Potassium Chloride Er 20 Meq Tab.Er.Prt PO 10/29/22 19:16 40 meq ONCE ONE Administration <MASON Owens - Last Filed: 10/29/22 13:51> Medications Administered Discontinued Medications Generic Name Dose Route Start Last Admin Trade Name Poloq PRN Reason Stop Dose Admin Albuterol Sulfate 2.5 mg/ 5 mg 10/29/22 19:39 10/29/22 19:53 Albuterol Sulfate 2.5 mg INHALE 10/29/22 19:40 5 mg ONCE ONE Administration Hydromorphone HCl 1 mg 10/29/22 16:19 10/29/22 16:32 Hydromorphone Hcl 1 Mg/Ml Syringe IVPUSH 10/29/22 16:20 1 mg ONCE ONE Administration Protocol Sodium Chloride 1,864.26 mls @ 1,864.26 mls/hr 10/29/22 15:58 10/29/22 18:20 Ns 30 ml/kg infuse over 1 hr (1864.26 ml) 10/29/22 16:57 Infused IV Infusion .Q1H STA Piperacillin Sod/Tazobactam 100 mls @ 200 mls/hr 10/29/22 16:10 10/29/22 17:03 Sod 4.5 gm/ Sodium Chloride IV 10/29/22 16:39 Infused ONCE ONE Infusion Iohexol 100 ml 10/29/22 18:32 10/29/22 18:32 Iohexol 350 Mg/Ml 100 Ml Infus..Btl IV 10/29/22 18:33 85 ml ONCE ONE Administration Nystatin 400,000 unit 10/29/22 19:05 10/29/22 19:35 Nystatin Oral Susp 500,000 Unit/5 Ml Oral.Susp PO 10/29/22 19:06 400,000 unit ONCE ONE Administration Protocol Ondansetron HCl 4 mg 10/29/22 16:19 10/29/22 16:32 Ondansetron Hcl 4 Mg/2 Ml Vial IVPUSH 10/29/22 16:20 4 mg ONCE ONE Administration Potassium Chloride 40 meq 10/29/22 19:15 10/29/22 19:36 Potassium Chloride Er 20 Meq Tab.Er.Prt PO 10/29/22 19:16 40 meq ONCE ONE Administration <MASON Whitt - Last Filed: 10/29/22 21:29> Medical Decision Making Differential Diagnosis Differential Diagnoses: The differential diagnosis associated with the presentation includes <MASON Whitt - Last Filed: 10/29/22 21:29> Severe sepsis, kidney stone, pyelonephritis, metastatic cancer, COPD exacerbation, pneumonia, bronchitis, viral process, acute intra-abdominal process <MASON Whitt - Last Filed: 10/29/22 21:29> Consult Healthcare Provider Management of the patient was discussed with: Hospitalist <MASON Whitt - Last Filed: 10/29/22 21:29> Dr. Caicedo to admit <MASON Whitt - Last Filed: 10/29/22 21:29> Lab Data MDM Lab Attestation statement: I reviewed the patient's lab results. <MASON Whitt - Last Filed: 10/29/22 21:29> Result Diagrams: : 10/29/22 14:00 10/29/22 14:00 <MASON Owens - Last Filed: 10/29/22 13:51> Labs: Lab Results 10/29/22 10/29/22 10/29/22 Range/Units 14:00 14:00 14:00 WBC 30.6 H* (4.8-10.8) X10*3/uL RBC 5.84 H (4.20-5.50) X10*6/uL Hgb 17.6 H (12.0-16.0) g/dl Hct 51.6 H (37.0-47.0) % MCV 88.4 (80.0-98.0) fL MCH 30.1 (27.0-33.0) pg MCHC 34.1 (31.0-35.0) g/dl RDW 14.0 (11.0-16.0) % Plt Count 326 (160-400) X10*3/uL MPV 9.8 (9.4-12.3) fL Immature Gran % (Auto) 0.6 H (0.0-0.4) % Neut % (Auto) 83.0 H (45-73) % Lymph % (Auto) 11.9 L (20-40) % [place] % (Auto) 4.2 (2-11) % Eos % (Auto) 0.1 (0-4) % Baso % (Auto) 0.2 (0-2) % Lymph # (Auto) 3.7 (1.2-4.9) X10*3/uL [place] # (Auto) 1.3 H (0.1-1.2) X10*3/uL Eos # (Auto) 0.0 (0.0-0.4) X10*3/uL Baso # (Auto) 0.1 (0.0-0.2) X10*3/uL Abs Immat Gran (auto) 0.18 H (0.00-0.03) X10*3/uL Absolute Neuts (auto) 25.4 H (2.0-8.3) x10*3/uL Absolute Nucleated RBC 0.000 (0.0-0.012) X10*3/uL Nucleated RBC % (auto) 0.0 (0.0-0.2) /100WBC Smear Tech's Comments VERIFIED VBG pH (7.32-7.43) VBG pCO2 mmHg VBG pO2 mmHg VBG HCO3 (22-26) mmol/L VBG O2 Saturation % VBG Base Excess mmol/L Sodium 137 (135-145) mmol/L Potassium 3.2 L (3.3-5.1) mmol/L Chloride 90 L (96-108) mmol/L Carbon Dioxide 33 H (22-29) mmol/L Anion Gap 17 (12-20) BUN 14 (9-16) mg/dL Creatinine 0.95 (0.5-1.4) mg/dL Estim Creat Clear Calc 50.5 Estimated GFR 59 Random Glucose 89 (60-115) mg/dL Lactic Acid (0.5-2.0) mmol/L Calcium 9.6 (8.4-10.2) mg/dL Magnesium 2.1 (1.6-2.6) mg/dL Total Bilirubin 1.1 H (0.0-1.0) mg/dL AST 15 (5-31) U/L ALT 18 (0-31) U/L Alkaline Phosphatase 101 (39-117) U/L Total Protein 7.4 (6.5-8.0) g/dL Albumin 4.7 (3.5-5.0) g/dL Urine Color Urine Appearance Urine pH (5.0-9.0) Ur Specific [place] (1.005-1.025) Urine Protein (Neg-Trace) mg/dL Urine Glucose (UA) (Negative) mg/dL Urine Ketones (Negative) mg/dL Urine Blood (Negative) Urine Nitrite (Negative) Ur Leukocyte Esterase (Negative) Influenza Type A (PCR) NEGATIVE (Negative) Influenza Type B (PCR) NEGATIVE (Negative) RSV RNA Qual (PCR) NEGATIVE (Negative) SARS-CoV-2 RNA (RT-PCR) NEGATIVE (Negative) S. pyogenes GrpA DEEPTHI (Negative) 10/29/22 10/29/22 10/29/22 Range/Units 14:00 14:08 16:11 WBC (4.8-10.8) X10*3/uL RBC (4.20-5.50) X10*6/uL Hgb (12.0-16.0) g/dl Hct (37.0-47.0) % MCV (80.0-98.0) fL MCH (27.0-33.0) pg MCHC (31.0-35.0) g/dl RDW (11.0-16.0) % Plt Count (160-400) X10*3/uL MPV (9.4-12.3) fL Immature Gran % (Auto) (0.0-0.4) % Neut % (Auto) (45-73) % Lymph % (Auto) (20-40) % [place] % (Auto) (2-11) % Eos % (Auto) (0-4) % Baso % (Auto) (0-2) % Lymph # (Auto) (1.2-4.9) X10*3/uL [place] # (Auto) (0.1-1.2) X10*3/uL Eos # (Auto) (0.0-0.4) X10*3/uL Baso # (Auto) (0.0-0.2) X10*3/uL Abs Immat Gran (auto) (0.00-0.03) X10*3/uL Absolute Neuts (auto) (2.0-8.3) x10*3/uL Absolute Nucleated RBC (0.0-0.012) X10*3/uL Nucleated RBC % (auto) (0.0-0.2) /100WBC Smear Tech's Comments VBG pH (7.32-7.43) VBG pCO2 mmHg VBG pO2 mmHg VBG HCO3 (22-26) mmol/L VBG O2 Saturation % VBG Base Excess mmol/L Sodium (135-145) mmol/L Potassium (3.3-5.1) mmol/L Chloride (96-108) mmol/L Carbon Dioxide (22-29) mmol/L Anion Gap (12-20) BUN (9-16) mg/dL Creatinine (0.5-1.4) mg/dL Estim Creat Clear Calc Estimated GFR Random Glucose (60-115) mg/dL Lactic Acid 1.3 (0.5-2.0) mmol/L Calcium (8.4-10.2) mg/dL Magnesium (1.6-2.6) mg/dL Total Bilirubin (0.0-1.0) mg/dL AST (5-31) U/L ALT (0-31) U/L Alkaline Phosphatase (39-117) U/L Total Protein (6.5-8.0) g/dL Albumin (3.5-5.0) g/dL Urine Color Yellow Urine Appearance Clear Urine pH 7.0 (5.0-9.0) Ur Specific [place] 1.010 (1.005-1.025) Urine Protein Negative (Neg-Trace) mg/dL Urine Glucose (UA) Negative (Negative) mg/dL Urine Ketones Negative (Negative) mg/dL Urine Blood Negative (Negative) Urine Nitrite Negative (Negative) Ur Leukocyte Esterase Negative (Negative) Influenza Type A (PCR) (Negative) Influenza Type B (PCR) (Negative) RSV RNA Qual (PCR) (Negative) SARS-CoV-2 RNA (RT-PCR) (Negative) S. pyogenes GrpA DEEPTHI Negative (Negative) 10/29/22 Range/Units 20:02 WBC (4.8-10.8) X10*3/uL RBC (4.20-5.50) X10*6/uL Hgb (12.0-16.0) g/dl Hct (37.0-47.0) % MCV (80.0-98.0) fL MCH (27.0-33.0) pg MCHC (31.0-35.0) g/dl RDW (11.0-16.0) % Plt Count (160-400) X10*3/uL MPV (9.4-12.3) fL Immature Gran % (Auto) (0.0-0.4) % Neut % (Auto) (45-73) % Lymph % (Auto) (20-40) % [place] % (Auto) (2-11) % Eos % (Auto) (0-4) % Baso % (Auto) (0-2) % Lymph # (Auto) (1.2-4.9) X10*3/uL [place] # (Auto) (0.1-1.2) X10*3/uL Eos # (Auto) (0.0-0.4) X10*3/uL Baso # (Auto) (0.0-0.2) X10*3/uL Abs Immat Gran (auto) (0.00-0.03) X10*3/uL Absolute Neuts (auto) (2.0-8.3) x10*3/uL Absolute Nucleated RBC (0.0-0.012) X10*3/uL Nucleated RBC % (auto) (0.0-0.2) /100WBC Smear Tech's Comments VBG pH 7.35 (7.32-7.43) VBG pCO2 77 mmHg VBG pO2 29 mmHg VBG HCO3 43 H (22-26) mmol/L VBG O2 Saturation 33.0 % VBG Base Excess 12.9 mmol/L Sodium (135-145) mmol/L Potassium (3.3-5.1) mmol/L Chloride (96-108) mmol/L Carbon Dioxide (22-29) mmol/L Anion Gap (12-20) BUN (9-16) mg/dL Creatinine (0.5-1.4) mg/dL Estim Creat Clear Calc Estimated GFR Random Glucose (60-115) mg/dL Lactic Acid (0.5-2.0) mmol/L Calcium (8.4-10.2) mg/dL Magnesium (1.6-2.6) mg/dL Total Bilirubin (0.0-1.0) mg/dL AST (5-31) U/L ALT (0-31) U/L Alkaline Phosphatase (39-117) U/L Total Protein (6.5-8.0) g/dL Albumin (3.5-5.0) g/dL Urine Color Urine Appearance Urine pH (5.0-9.0) Ur Specific [place] (1.005-1.025) Urine Protein (Neg-Trace) mg/dL Urine Glucose (UA) (Negative) mg/dL Urine Ketones (Negative) mg/dL Urine Blood (Negative) Urine Nitrite (Negative) Ur Leukocyte Esterase (Negative) Influenza Type A (PCR) (Negative) Influenza Type B (PCR) (Negative) RSV RNA Qual (PCR) (Negative) SARS-CoV-2 RNA (RT-PCR) (Negative) S. pyogenes GrpA DEEPTHI (Negative) <MASON Owens - Last Filed: 10/29/22 13:51> Lab Results 10/29/22 10/29/22 10/29/22 Range/Units 14:00 14:00 14:00 WBC 30.6 H* (4.8-10.8) X10*3/uL RBC 5.84 H (4.20-5.50) X10*6/uL Hgb 17.6 H (12.0-16.0) g/dl Hct 51.6 H (37.0-47.0) % MCV 88.4 (80.0-98.0) fL MCH 30.1 (27.0-33.0) pg MCHC 34.1 (31.0-35.0) g/dl RDW 14.0 (11.0-16.0) % Plt Count 326 (160-400) X10*3/uL MPV 9.8 (9.4-12.3) fL Immature Gran % (Auto) 0.6 H (0.0-0.4) % Neut % (Auto) 83.0 H (45-73) % Lymph % (Auto) 11.9 L (20-40) % [place] % (Auto) 4.2 (2-11) % Eos % (Auto) 0.1 (0-4) % Baso % (Auto) 0.2 (0-2) % Lymph # (Auto) 3.7 (1.2-4.9) X10*3/uL [place] # (Auto) 1.3 H (0.1-1.2) X10*3/uL Eos # (Auto) 0.0 (0.0-0.4) X10*3/uL Baso # (Auto) 0.1 (0.0-0.2) X10*3/uL Abs Immat Gran (auto) 0.18 H (0.00-0.03) X10*3/uL Absolute Neuts (auto) 25.4 H (2.0-8.3) x10*3/uL Absolute Nucleated RBC 0.000 (0.0-0.012) X10*3/uL Nucleated RBC % (auto) 0.0 (0.0-0.2) /100WBC Smear Tech's Comments VERIFIED VBG pH (7.32-7.43) VBG pCO2 mmHg VBG pO2 mmHg VBG HCO3 (22-26) mmol/L VBG O2 Saturation % VBG Base Excess mmol/L Sodium 137 (135-145) mmol/L Potassium 3.2 L (3.3-5.1) mmol/L Chloride 90 L (96-108) mmol/L Carbon Dioxide 33 H (22-29) mmol/L Anion Gap 17 (12-20) BUN 14 (9-16) mg/dL Creatinine 0.95 (0.5-1.4) mg/dL Estim Creat Clear Calc 50.5 Estimated GFR 59 Random Glucose 89 (60-115) mg/dL Lactic Acid (0.5-2.0) mmol/L Calcium 9.6 (8.4-10.2) mg/dL Magnesium 2.1 (1.6-2.6) mg/dL Total Bilirubin 1.1 H (0.0-1.0) mg/dL AST 15 (5-31) U/L ALT 18 (0-31) U/L Alkaline Phosphatase 101 (39-117) U/L Total Protein 7.4 (6.5-8.0) g/dL Albumin 4.7 (3.5-5.0) g/dL Urine Color Urine Appearance Urine pH (5.0-9.0) Ur Specific [place] (1.005-1.025) Urine Protein (Neg-Trace) mg/dL Urine Glucose (UA) (Negative) mg/dL Urine Ketones (Negative) mg/dL Urine Blood (Negative) Urine Nitrite (Negative) Ur Leukocyte Esterase (Negative) Influenza Type A (PCR) NEGATIVE (Negative) Influenza Type B (PCR) NEGATIVE (Negative) RSV RNA Qual (PCR) NEGATIVE (Negative) SARS-CoV-2 RNA (RT-PCR) NEGATIVE (Negative) S. pyogenes GrpA DEEPTHI (Negative) 10/29/22 10/29/22 10/29/22 Range/Units 14:00 14:08 16:11 WBC (4.8-10.8) X10*3/uL RBC (4.20-5.50) X10*6/uL Hgb (12.0-16.0) g/dl Hct (37.0-47.0) % MCV (80.0-98.0) fL MCH (27.0-33.0) pg MCHC (31.0-35.0) g/dl RDW (11.0-16.0) % Plt Count (160-400) X10*3/uL MPV (9.4-12.3) fL Immature Gran % (Auto) (0.0-0.4) % Neut % (Auto) (45-73) % Lymph % (Auto) (20-40) % [place] % (Auto) (2-11) % Eos % (Auto) (0-4) % Baso % (Auto) (0-2) % Lymph # (Auto) (1.2-4.9) X10*3/uL [place] # (Auto) (0.1-1.2) X10*3/uL Eos # (Auto) (0.0-0.4) X10*3/uL Baso # (Auto) (0.0-0.2) X10*3/uL Abs Immat Gran (auto) (0.00-0.03) X10*3/uL Absolute Neuts (auto) (2.0-8.3) x10*3/uL Absolute Nucleated RBC (0.0-0.012) X10*3/uL Nucleated RBC % (auto) (0.0-0.2) /100WBC Smear Tech's Comments VBG pH (7.32-7.43) VBG pCO2 mmHg VBG pO2 mmHg VBG HCO3 (22-26) mmol/L VBG O2 Saturation % VBG Base Excess mmol/L Sodium (135-145) mmol/L Potassium (3.3-5.1) mmol/L Chloride (96-108) mmol/L Carbon Dioxide (22-29) mmol/L Anion Gap (12-20) BUN (9-16) mg/dL Creatinine (0.5-1.4) mg/dL Estim Creat Clear Calc Estimated GFR Random Glucose (60-115) mg/dL Lactic Acid 1.3 (0.5-2.0) mmol/L Calcium (8.4-10.2) mg/dL Magnesium (1.6-2.6) mg/dL Total Bilirubin (0.0-1.0) mg/dL AST (5-31) U/L ALT (0-31) U/L Alkaline Phosphatase (39-117) U/L Total Protein (6.5-8.0) g/dL Albumin (3.5-5.0) g/dL Urine Color Yellow Urine Appearance Clear Urine pH 7.0 (5.0-9.0) Ur Specific [place] 1.010 (1.005-1.025) Urine Protein Negative (Neg-Trace) mg/dL Urine Glucose (UA) Negative (Negative) mg/dL Urine Ketones Negative (Negative) mg/dL Urine Blood Negative (Negative) Urine Nitrite Negative (Negative) Ur Leukocyte Esterase Negative (Negative) Influenza Type A (PCR) (Negative) Influenza Type B (PCR) (Negative) RSV RNA Qual (PCR) (Negative) SARS-CoV-2 RNA (RT-PCR) (Negative) S. pyogenes GrpA DEEPTHI Negative (Negative) 10/29/22 Range/Units 20:02 WBC (4.8-10.8) X10*3/uL RBC (4.20-5.50) X10*6/uL Hgb (12.0-16.0) g/dl Hct (37.0-47.0) % MCV (80.0-98.0) fL MCH (27.0-33.0) pg MCHC (31.0-35.0) g/dl RDW (11.0-16.0) % Plt Count (160-400) X10*3/uL MPV (9.4-12.3) fL Immature Gran % (Auto) (0.0-0.4) % Neut % (Auto) (45-73) % Lymph % (Auto) (20-40) % [place] % (Auto) (2-11) % Eos % (Auto) (0-4) % Baso % (Auto) (0-2) % Lymph # (Auto) (1.2-4.9) X10*3/uL [place] # (Auto) (0.1-1.2) X10*3/uL Eos # (Auto) (0.0-0.4) X10*3/uL Baso # (Auto) (0.0-0.2) X10*3/uL Abs Immat Gran (auto) (0.00-0.03) X10*3/uL Absolute Neuts (auto) (2.0-8.3) x10*3/uL Absolute Nucleated RBC (0.0-0.012) X10*3/uL Nucleated RBC % (auto) (0.0-0.2) /100WBC Smear Tech's Comments VBG pH 7.35 (7.32-7.43) VBG pCO2 77 mmHg VBG pO2 29 mmHg VBG HCO3 43 H (22-26) mmol/L VBG O2 Saturation 33.0 % VBG Base Excess 12.9 mmol/L Sodium (135-145) mmol/L Potassium (3.3-5.1) mmol/L Chloride (96-108) mmol/L Carbon Dioxide (22-29) mmol/L Anion Gap (12-20) BUN (9-16) mg/dL Creatinine (0.5-1.4) mg/dL Estim Creat Clear Calc Estimated GFR Random Glucose (60-115) mg/dL Lactic Acid (0.5-2.0) mmol/L Calcium (8.4-10.2) mg/dL Magnesium (1.6-2.6) mg/dL Total Bilirubin (0.0-1.0) mg/dL AST (5-31) U/L ALT (0-31) U/L Alkaline Phosphatase (39-117) U/L Total Protein (6.5-8.0) g/dL Albumin (3.5-5.0) g/dL Urine Color Urine Appearance Urine pH (5.0-9.0) Ur Specific [place] (1.005-1.025) Urine Protein (Neg-Trace) mg/dL Urine Glucose (UA) (Negative) mg/dL Urine Ketones (Negative) mg/dL Urine Blood (Negative) Urine Nitrite (Negative) Ur Leukocyte Esterase (Negative) Influenza Type A (PCR) (Negative) Influenza Type B (PCR) (Negative) RSV RNA Qual (PCR) (Negative) SARS-CoV-2 RNA (RT-PCR) (Negative) S. pyogenes GrpA DEEPTHI (Negative) <MASON Whitt - Last Filed: 10/29/22 21:29> Independent Interpretation I performed an independent interpretation of an: EKG <MASON Whitt - Last Filed: 10/29/22 21:29> Interpretation: Sinus rhythm with PACs, ventricular rate 97 beats per minute, normal NV interval, normal QTC, no ST segment elevations or depressions. <MASON Whitt - Last Filed: 10/29/22 21:29> Radiology Impression Discussion of test interpretation with radiology: I have reviewed the radiologist's reading. <MASON Whitt - Last Filed: 10/29/22 21:29> Radiologist Impression: IMPRESSION: ? *? No CT evidence of acute intra-abdominal process to explain patient's pain symptoms. No kidney stone or hydronephrosis. ? *? Cystic structure in the left side of the pelvis adjacent to the iliac vessels 3.4 cm, could be from left ovarian origin, consider correlation with follow-up pelvic ultrasound. ? *? Mild infiltrates and Subsegmental atelectasis at lower lobes and lingula base, Moderate to severe pulmonary emphysema. ? * There is 9 mm SPICULATED NODULE RIGHT UPPER LOBE with adjacent scar. Various management parameters for solitary pulmonary nodules are in the literature. According to the UPDATED 2017 Fleischner Society recommendations, the advised follow-up imaging for a single solid nodule measuring 8 mm or greater is:? Consider CT, PET/CT, or tissue sampling at 3 months. ? Reference: Guidelines for Management of Incidental Pulmonary Nodules Detected on CT Images: From the Fleischner Society 2017. ? *? Sclerotic densities in the left pedicle of L3 and left femoral neck, probably bone islands. ? *? Urinary bladder is markedly distended. Consider decompression. <MASON Whitt - Last Filed: 10/29/22 21:29> Independent Historian Clinical information obtained from an independent historian. History obtained f rom or confirmed by: Spouse <MASON Whitt - Last Filed: 10/29/22 21:29> External Record Review External record reviewed: Outpatient record and Prior outpatient labs <MASON Whitt - Last Filed: 10/29/22 21:29> Prescription Management I considered prescription management with: Pain Medication and Antibiotic <MASON Whitt Last Filed: 10/29/22 21:29> Chronic Conditions Patient?s care impacted by: Other (COPD, smoking history) <MASON Whitt - Last Filed: 10/29/22 21:29> Critical Care Time Critical Care Time Critical Care Time: Yes <MASON Whitt - Last Filed: 10/29/22 21:29> Total Critical Care Time: 42 <MASON Whitt - Last Filed: 10/29/22 21:29> Attestation: I have personally provided critical care time exclusive of time spent on separately billable procedures. Time includes review of lab data, radiology results, discussion with consultants, and monitoring for potential decompensation. Intervention performed as documented. <MASON Whitt - Last Filed: 10/29/22 21:29> Discharge Plan Discharge Clinical Impression: Solid nodule of lung greater than 8 mm in diameter, COPD exacerbation, Hypoxia, SIRS (systemic inflammatory response syndrome), Oral thrush, Severe back pain <MASON Owens - Last Filed: 10/29/22 13:51> Patient Disposition: Admitted As Inpatient <MASON Owens - Last Filed: 10/29/22 13:51>
[2022-10-29 14:20] LABS: Appearance Urine Clear; Color Urine Yellow; Glucose Urine UA Negative (Negative); Leukocyte Esterase Urine Negative (Negative); Nitrite Urine Negative (Negative); Urine Blood Negative (Negative); Urine Ketones Negative (Negative); Urine Protein Negative (Neg-Trace)
[2022-10-29 14:23] LABS: Basophils Absolute Auto 0.1 X10*3/uL (0.0-0.2); Basophils Percent Auto 0.2 % (0-2); Eosinophils Percent Auto 0.1 % (0-4); Hematocrit 51.6 % (37.0-47.0); Hemoglobin 17.6 g/dl (12.0-16.0); Imm Gran Abs Auto 0.18 X10*3/uL (0.00-0.03); Imm Gran Pct Auto 0.6 % (0.0-0.4); Lymphocytes Absolute Auto 3.7 X10*3/uL (1.2-4.9); Lymphocytes Percent Auto 11.9 % (20-40); Mean Corpuscular HGB Conc 34.1 g/dl (31.0-35.0); Mean Corpuscular Hemoglobin 30.1 pg (27.0-33.0); Mean Corpuscular Volume 88.4 fL (80.0-98.0); Mean Platelet Volume 9.8 fL (9.4-12.3); Monocytes Absolute Auto 1.3 X10*3/uL (0.1-1.2); Monocytes Percent Auto 4.2 % (2-11); Neutrophils Absolute Auto 25.4 x10*3/uL (2.0-8.3); Platelet Count 326 X10*3/uL (160-400); Red Blood Count 5.84 X10*6/uL (4.20-5.50); SCAN SMEAR FLAG 1
[2022-10-29 14:26] LABS: IDNOW Serial# 6674DD1D; Strep A Nucleic Acid Negative (Negative)
[2022-10-29 14:27] LABS: White Blood Count 30.6 X10*3/uL (4.8-10.8)
[2022-10-29 14:37] LABS: Alanine Aminotransferase 18 U/L (0-31); Albumin Level 4.7 g/dL (3.5-5.0); Alkaline Phosphatase 101 U/L (39-117); Anion Gap 17 (12-20); Aspartate Amino Transferase 15 U/L (5-31); Bilirubin Total 1.1 mg/dL (0.0-1.0); Blood Urea Nitrogen 14 mg/dL (9-16); Calcium 9.6 mg/dL (8.4-10.2); Carbon Dioxide 33 mmol/L (22-29); Chloride 90 mmol/L (96-108); Creatinine Clr Calc Pharmacy 50.5; Estimated Glomerular Filt Rate 59; Glucose Random 89 mg/dL (60-115); Magnesium 2.1 mg/dL (1.6-2.6); Potassium 3.2 mmol/L (3.3-5.1); Sodium 137 mmol/L (135-145); Total Protein 7.4 g/dL (6.5-8.0)
[2022-10-29 14:41] LABS: MANUAL DIFF FLAG SCAN
[2022-10-29 14:42] LABS: SLIDE REVIEW VERIFIED
[2022-10-29 15:01] LABS: Influenza A PCR NEGATIVE (Negative); Influenza B PCR NEGATIVE (Negative); Resp Syncy Virus RNA Qual PCR NEGATIVE (Negative); SARS COV2 PCR INHOUSE NEGATIVE (Negative)
[2022-10-29] MEDS: SODIUM CHLORIDE 1864.26 ML IV (16:17)
[2022-10-29 16:29] LABS: Lactic Acid 1.3 mmol/L (0.5-2.0)
[2022-10-29] MEDS: ondansetron HCL 4 MG/2 ML VIAL IVPUSH (16:32)
[2022-10-29] MEDS: HYDROmorphone HCl 1 MG/ML SYRINGE IVPUSH (16:32)
[2022-10-29] MEDS: Piperacillin Sodium/Tazobactam 4.5 GM in 0.9 % Sodium Chloride 100 ML IV (16:32)
--- NOTE | 2022-10-29 16:43 | PC.NURSE ---
pt a&ox3, vss, 20G IV placed right forearm, 22G IV placed left forearm, labs drawn, cultures drawn, ivf running, medicated per provider order for pain/nausea/abx. sepsis protocol initiated. no new orders at this time.
--- NOTE | 2022-10-29 16:46 | ECG_ITS ---
Test Reason : SEPSIS Blood Pressure : / mmHG Vent. Rate : 097 BPM Atrial Rate : 097 BPM P-R Int : 132 ms QRS Dur : 072 ms QT Int : 372 ms P-R-T Axes : 085 -12 058 degrees QTc Int : 472 ms Sinus rhythm with Premature atrial complexes with Aberrant conduction Otherwise normal ECG When compared with ECG of 15-JAN-2020 12:36, Aberrant conduction is now Present Nonspecific T wave abnormality now evident in Anterior leads QT has lengthened Referred By: Clary Mcclelland Electronically Signed By:CHRISTINE LIRA MD
--- NOTE | 2022-10-29 16:50 | PC.NURSE ---
pt O2 desatted to 86% after dilaudid, O2 applied via nasal cannula at 2L, improved to 92-94. provider aware.
--- NOTE | 2022-10-29 18:12 | PC.NURSE ---
pt to CT.
[2022-10-29] MEDS: iohexoL 350 MG/ML 100 ML INFUS..BTL IV (18:32)
[2022-10-29] MEDS: Nystatin Oral Susp 500,000 UNIT/5 ML ORAL.SUSP 400000 UNIT PO (19:35)
[2022-10-29] MEDS: Potassium Chloride ER 20 MEQ TAB.ER.PRT 40 MEQ PO (19:36)
[2022-10-29] MEDS: Albuterol Sulfate 2.5 MG, Albuterol Sulfate (0.083%) 2.5 MG 5 MG INHALE (19:53)
--- NOTE | 2022-10-29 19:57 | PC.NURSE ---
Pt took potassium tabs PO (per DEC), crushed with applesauce.
[2022-10-29 20:07] LABS: Venous Blood Gas Refer to POC result
[2022-10-29 20:08] LABS: VBG Base Excess 12.9 mmol/L; VBG HCO3 43 mmol/L (22-26); VBG pCO2 77 mmHg; VBG pH 7.35 (7.32-7.43); VBG pO2 29 mmHg
--- NOTE | 2022-10-29 21:42 | PC.NURSE ---
medication rec complete by this RN, confirmed with pt
[2022-10-29] MEDS: 0.9 % Sodium Chloride 1,000 ML 999 ML IV (22:00)
--- NOTE | 2022-10-29 23:21 | PC.NURSE ---
pt blood pressure fluctuating latest 80s over 50s, MASON Means aware. no new orders at this time
[2022-10-30] VITALS (15 sets, daily range): BP systolic 100–121; BP diastolic 55–73; PULSE 63–90; RESP 12–24; TEMP 36.2–36.8; O2SAT 91–96
[2022-10-30] MEDS: 0.9 % Sodium Chloride 1,000 ML 999 ML IV (00:03)
[2022-10-30] MEDS: Midodrine HCl 10 MG TABLET PO (00:03)
--- NOTE | 2022-10-30 00:14 | PC.NURSE ---
pt reports back pain that has been going on since she got an injection in her back, PA aware
--- NOTE | 2022-10-30 00:24 | PC.NURSE ---
pt sleeping at this time, respirations are even and unlabored, no apparent distress
[2022-10-30 00:38] LABS: Lactic Acid 1.1 mmol/L (0.5-2.0)
--- NOTE | 2022-10-30 01:59 | MHC.EDTECH ---
pt used the commode cz she wasnt use to the purewick so she stand pivot to the commode, vitals were taken she is ok now
--- OUTSIDE RECORDS SUMMARY | 2022-10-30 02:24 | XMS_ITS ---
:1955 Author Organization Jamie Casanova III, MD Address [address] [place] [address] [place] [address] Care Team Providers Name Role Phone Jamie Casanova Unavailable Unavailable Jamie Casanova Unavailable [phone] Carissa Gomez Unavailable [phone] AMADOR, SHERON Unavailable Unavailable COREY, AMARILYS Unavailable Unavailable Abdirahman Dia Unavailable Unavailable PROBLEMS Type Condition ICD9-CM VWC31-EB Onset Condition SNOMED Cod e Code Code Dates Status Problem H/O opioid abuse Z87.898 Active 288 [id number] Problem Colonic polyp K63.5 Active 502776 03 Problem PTSD F43.10 Active 47766603 (post-traumatic stress disorder) Problem Tarsal tunnel G57.50 Active 391544 04 syndrome Problem Anxiety disorder F41.9 Active 197 670292 Problem Fracture of tibia S82.209A Active 31 138687 Problem Hyperlipidemia E78.5 Active 33246 004 Problem COPD (chronic J44.9 Active 136050 05 obstructive pulmonary disease) Problem Osteopenia M85.80 Active 56401051 Problem Thyroid nodule E04.1 Active 93576 5005 Problem Depression F32.9 Active 495772215 Problem Postphlebitic I87.009 Active 104973 03 syndrome Problem Tobacco dependence F17.200 Active 8 7346025 Problem Urinary R32 Active 093092551 incontinence Problem Lymphedema I89.0 Active 51880241 Problem History of Z86.711 Active 402609356 pulmonary embolism Problem Lumbar M54.16 Active 433397585 radiculopathy Problem Essential I10 Active 85660126 hypertension Problem Atypical N62 Active 119604512 hyperplasia of breast Problem Esophageal K22.4 Active 250581485 dysmotility Problem DVT (deep venous I82.409 Active 128 904411 thrombosis) ALLERGIES No Known Allergies ENCOUNTERS Encounter Location Date Diagnosis Jamie Casanova III, [address] [place] [address] DR PERDOMO Sep, [place] [address] Jamie Casanova III, [address] [place] [address] [address] PERDOMO Sep, COPD ([facility] onic obstructive MD [place]al [place] pulmonary diseas e) J44.9 ; [address] Urinary tract in fection, site not specified N3 9.0 ; Essential hypertension I10 ; Depression F32.9 ; Osteopen ia M85.80 ; Tobacco dependen ce F17.200 ; History of pulmo nary embolism Z86.711 ; Hyperl ipidemia E78.5 ; Anxiety disord er F41.9 and Lumbar radiculop athy M54.16 Jamie Casanova III, [address] [place] [address] [address] [place]DOMO Sep, MD [place] Jamie Casanova III, [address] [place] [address] [address] [place]DOMO Aug, COPD ([facility] ontyshawn obstructive [place] pulmonary diseas e) J44.9 ; [address] Essential hypert ension I10 ; Hyperlipidemia E 78.5 ; Depression F32.9 ; Osteopenia M85.80 ; Tobacco dependence F17.200 ; Histor y of pulmonary embolism Z86.711 ; Esophageal dysmotility K22. 4 and Lymphedema I89.0 Jamie Casanova III, [address] [place] [address] [address] [place]DOMO Jun, COPD ([facility] obstructive MD [place] pulmonary diseas e) J44.9 [address] Jamie Casanova III, [address] [place] [address] [address] PERDOMO Jun, MD [place] Jamie Casanova III, [address] [facility] [address] [place]DOMO May, MD [place] Jamie Casanova III, [address] [facility] [address] [place]DOMO May, COPD (chr onic obstructive MD [place] pulmonary diseas e) J44.9 ; Lymphedema I89.0 ; Atypical hyperplasia of b reast N62 ; Essential hypert ension I10 ; Depression F32.9 ; Osteopenia M85.80 ; Tobacco dependence F17.200 ; Histor y of pulmonary embolism Z86.711 ; Esophageal dysmotility K22. 4 ; Hyperlipidemia E 78.5 ; Anxiety disorder F41.9 ; H/O opioid abuse Z87.898 ; DVT (deep venous thrombosi s) I82.409 ; Postphlebitic sy ndrome I87.009 ; Lumbar radicul opathy M54.16 and Urinary inco ntinence R32 Jamie Casanova III, [address] [facility] [address] [place]DOMO Mar, MD [place] Jamie Casanova III, [address] [facility] [address] [place]DOMO Mar, MD [place] Jamie Casanova III, [address] [facility] [address] [place]DOMO Mar, Lumbar ra diculopathy M54.16 and MD [place] Lumbar radicular syndrome [address] M54.16 Jamie Casanova III, [address] [facility] [address] [place]DOMO Mar, MD [place] Jamie Casanova III, [address] [place]DOMO Mar, MD [place] Jamie Casanova III, [address] [facility] [address] [place]DOMO February, MD [place] Jamie Casanova III, [address] [facility] [address] [place]DOMO Jan, MD [place] Jamie Casanova III, [address] [place]DOMO Jan, COPD (chr onic obstructive MD [place] pulmonary diseas e) J44.9 ; Overweight E66.3 ; Hyperlipidemia E 78.5 ; Osteopenia M85.8 0 ; Depression F32.9 ; Tobacco dependence F17.200 and Hist ory of pulmonary emboli Z86.711 Jamie Casanova [facility], [address] [facility] [address] PERDOMO 21 Dec, 2021 [place] [address] Jamie Casanova [facility], [address] [facility] [address] PERDOMO 15 Dec, 2021 MD [place] Jamie Casanova [facility], [address] [facility] [address] PERDOMO 14 Dec, 2021 COPD (chr onic obstructive MD [place] pulmonary diseas e) J44.9 ; [address] Atypical hyperpl dilcia of breast N62 ; Essential hypertension I10 ; Depression F32.9 ; Osteopenia M85.8 0 ; Tobacco dependence F17.2 00 ; Colonic polyp K63.5 ; Hi story of pulmonary emboli Z86.711 ; Hyperlipidemia E 78.5 ; H/O opioid abuse Z87 .898 ; Lymphedema I89.0 ; Lumbar radiculopathy M5 4.16 and Urinary incontin ence R32 Jamie Casanova [facility], [address] [facility] [address] [place]DOMO Aug, [place] [address] Jamie Casanova [facility], [address] [facility] [address] [place]DOMO Aug, MD [place] Jamie Casanova [facility], [address] [facility] [address] [place]DOMO Jul, [place] [address] Jamie Casanova [facility], [address] [facility] [address] [place]DOMO Jun, DVT (deep venous thrombosis) MD [place] I82.409 ; Essent ial [address] hypertension I10 ; Hyperlipidemia E 78.5 ; COPD (chronic obstruc tive pulmonary disease) J44.9 ; Lumbar radiculopathy M5 4.16 ; Depression F32.9 ; Osteopenia M85.80 and Tobac co dependence F17.200 Jamie Casanova [facility], [address] [place] [address] [address] PERDOMO May, DVT (deep venous thrombosis) MD [place] I82.409 ; Atypic al hyperplasia [address] of breast N62 ; Essential hypertension I10 ; Depression F32.9 ; Osteopen ia M85.80 ; Unspecified urin josselyn incontinence R32 ; Tobacco dependence F17.2 00 ; History of pulmonary emboli sm Z86.711 ; Esophageal dysmo tility K22.4 ; Hyperlipidemia E 78.5 ; COPD (chronic obstruc tive pulmonary disease) J44.9 ; Anxiety disorder F41.9 ; Postphlebitic syndrome I87.009 ; Lymphedema I89.0 and Lumbar radiculopathy M54.16 Jamie Rosalina Casanova [address] [place]DOMO May, DVT (deep venous thrombosis) MD [place] I82.409 ; Depres teodoro F32.9 ; [address] Essential hypert ension I10 ; Unspecified urin josselyn incontinence R32 ; Tobacco dependence F17.2 00 ; History of pulmonary emboli sm Z86.711 ; COPD (chronic ob structive pulmonary diseas e) J44.9 ; Anxiety disorder F41.9 ; Postphlebitic sy ndrome I87.009 and Lumbar radic ulopathy M54.16 [facility] [address] [place]DOMO Apr, [place] [address] Jamie Casanova [address] [place] Apr, [place] [address] [place] Rosalina Casanova [address] PERDOMO Mar, DVT (deep venous thrombosis) MD [place] I82.409 ; Essent ial [address] hypertension I10 ; Hyperlipidemia E 78.5 ; COPD (chronic obstruc tive pulmonary disease) J44.9 ; Depression F32.9 ; Osteopen ia M85.80 ; Unspecified urin josselyn incontinence R32 ; Tobacco dependence F17.2 00 ; History of pulmonary emboli sm Z86.711 ; Postphlebitic sy ndrome I87.009 and Lumbar radic ulopathy M54.16 [place] Rosalina Casanova [address] [place]DOMO Dec, DVT (deep venous thrombosis) MD [place] I82.409 ; Histor y of pulmonary [address] embolism Z86.711 ; Tobacco dependence F17.2 00 ; Depression F32.9 and Essent ial hypertension I10 Jamie Casanova [address] PERDOMO Nov, DVT (deep venous thrombosis) MD [place] I82.409 ; Essent ial [address] hypertension I10 ; Hyperlipidemia E 78.5 ; Conjunctivitis H 10.9 and Screening mammog carmelo, encounter for Z12.31 Jamie Casanova [address] [place]DOMO Nov, [place] [address] Jamie Casanova [address] PERDOMO Oct, DVT (deep venous thrombosis) MD [place] I82.409 ; COPD ( chronic [address] obstructive pulm onary disease) J44.9 ; Atypical hyperplasia of breast N62 ; Ess ential hypertension I10 ; Depression F32.9 ; Unspecif ied urinary incontinence R32 ; Colonic polyp K63.5 ; To bacco dependence F17.2 00 ; History of pulmonary emboli sm Z86.711 ; Esophageal dysmo tility K22.4 ; Hyperlipidemia E 78.5 ; Lymphedema I89.0 and Lumbar radiculopathy M5 4.16 Jamie Casanova [address] [place]DOMO Oct, Gastroent eritis K52.9 ; MD [place] Essential hypert ension I10 ; [address] Depression F32.9 ; Unspecified urinary incontin ence R32 ; Tobacco dependen ce F17.200 ; History of pulmo nary embolism Z86.711 and COPD (chronic obstructive pulm onary disease) J44.9 Jamie Casanova III[address] [place]DOMO Oct, Gastroent eritis K52.9 ; MD [place] Essential hypert ension I10 ; [address] Depression F32.9 ; Tobacco dependence F17.2 00 ; History of pulmonary emboli sm Z86.711 ; COPD (chronic ob structive pulmonary diseas e) J44.9 ; Anxiety disorder F41.9 ; Hyperlipidemia E 78.5 and Lumbar radiculopathy M5 4.16 Jamie Casanova [address] [place]DOMO Oct, [place] [address] Jamie Casanova III [address] [place] [address] DR PERDOMO Sep, Essential hypertension I10 ; MD [place] COPD (chronic ob structive [address] pulmonary diseas e) J44.9 ; Depression F32.9 ; Atypical hyperplasia of b reast N62 ; Unspecified urin josselyn incontinence R32 ; Tobacco dependence F17.2 00 ; History of pulmonary emboli sm Z86.711 ; Anxiety disorder F41.9 ; DVT (deep venous thr ombosis) I82.409 ; Postph lebitic syndrome I87.009 ; Lymphedema I89.0 and Left l eg pain M79.605 Jamie Casanova III, [address] [place] [address] DR PERDOMO Aug, Edema R60 .9 ; Left leg pain MD [place] M79.605 ; Depres teodoro F32.9 and [address] Essential hypert ension I10 Jamie Casanova III, [address] [place] [address] [address] PERDOMO Aug, [place] [address] Jamie Casanova [address] PERDOMO Aug, Left leg pain M79.605 ; MD [place] Lymphedema I89.0 ; DVT (deep [address] venous thrombosi s) I82.409 ; H/O opioid abuse Z87.898 ; PTSD (post-traumatic stress disorder) F43.10 ; Anxiety disorder F41.9 ; COPD (chronic obstructive pulm onary disease) J44.9 and Tobacc o dependence F17.200 Jamie Casanova III, [address] [place] [address] DR PERDOMO Aug, 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 ; Essential hypertension [address] I10 ; Depression F32.9 ; Overweight E66.3 ; Osteopenia M85.80 ; Unspeci fied urinary incontinence R32 ; Tobacco dependence F17.2 00 ; History of pulmonary emboli sm Z86.711 ; Narcotic addicti on F11.20 ; COPD (chronic ob structive pulmonary diseas e) J44.9 ; Hyperlipidemia E 78.5 ; Anxiety disorder F41.9 ; H/O opioid abuse Z87.898 an d Postphlebitic syndrome I87.009 Jamie Casanova III, [address] [place] [address] DR PERDOMO Jul, Essential hypertension I10 ; MD [place] Hyperlipidemia E 78.5 ; [address] Depression F32.9 ; Overweight E66.3 ; Tobacco dependence F17.200 ; Histor y of pulmonary embolism Z86.711 ; COPD (chronic obstruc tive pulmonary disease) J44.9 ; Lumbar radicular syndro me M54.16 ; Lymphedema I89.0 and Left thigh pain M79.652 Jamie Casanova III, [address] [place] [address] [address] PERDOMO Jun, Edema R60 .9 ; Essential MD Cristal [place] hypertension I10 ; Depression [address] F32.9 ; Overweig ht E66.3 ; Osteopenia M85.8 0 ; Tobacco dependence F17.2 00 ; History of pulmonary emboli sm Z86.711 and COPD (chronic ob structive pulmonary diseas e) J44.9 Jamie Casanova III, [address] [place] [address] [address] [place]DOMO May, [place] [address] Jamie Casanova [facility], [address] [place] [address] [address] PERDOMO May, Edema R60 .9 ; Essential MD Cristal [place] hypertension I10 ; Depression [address] F32.9 ; Unspecif ied urinary incontinence R32 ; Tobacco dependence F17.2 00 ; History of pulmonary emboli sm Z86.711 ; Narcotic addicti on F11.20 ; COPD (chronic ob structive pulmonary diseas e) J44.9 ; Hyperlipidemia E 78.5 ; Anxiety disorder F41.9 a nd DVT (deep venous thrombosi s) I82.409 Jamie Casanova III, [address] [place] [address] [address] PERDOMO Mar, [place] [address] Jamie Rosalina Casanova [facility], [address] [place] [address] DR PERDOMO Mar, Edema R60 .9 ; Lymphedema I89.0 MD [place] ; [place] [address] insufficiency, u nspecified etiology I07.1 ; Overweight E66.3 ; Unspecif ied urinary incontinence R32 and Hyperlipidemia E 78.5 Jamie Casanova [facility], [address] [place] [address] [address] PERDOMO Mar, Edema R60 .9 ; Essential MD Crist[place] hypertension I10 ; Depression [address] F32.9 ; Overweig ht E66.3 ; Unspecified urin josselyn incontinence R32 ; Tobacco dependence F17.2 00 ; COPD (chronic obstruc tive pulmonary disease) J44.9 ; Lumbar radicular syndro me M54.16 ; H/O opioid abuse Z87 .898 ; Vitamin D deficiency E55 .9 ; DVT (deep venous thrombosi s) I82.409 and Postphlebitic sy ndrome I87.009 Jamie Casanova III, [address] [place] [address] [address] PERDOMO Mar, Edema R60 .9 ; Deep vein MD Cristal [place] thrombosis (DVT) of lower [address] extremity, unspe cified chronicity, unsp ecified laterality, unsp ecified vein I82.409 ; Essent ial hypertension I10 ; Depression F32.9 ; Overweig ht E66.3 ; Osteopenia M85.8 0 ; Unspecified urinary incontin ence R32 ; Tobacco dependen ce F17.200 ; History of pulmo nary embolism Z86.711 ; COPD ( chronic obstructive pulm onary disease) J44.9 ; Lumbar r adicular syndrome M54.16 and Postphlebitic sy ndrome I87.009 Jamie Casanova [address] PERDOMO February, Edema R60 .9 ; Overweight E66.3 MD [place] ; Depression F32 .9 ; Essential [address] hypertension I10 ; Atypical hyperplasia of b reast N62 ; Unspecified urin josselyn incontinence R32 ; Tobacco dependence F17.2 00 and History of pulmonary emb olism Z86.711 Jamie Casanova III, [address] [place] [address] [address] PERDOMO February, [place] [address] Jamie Casanova [address] PERDOMO February, DVT (deep venous thrombosis) MD [place] I82.409 ; Postph lebitic [address] syndrome I87.009 ; Depression F32.9 ; Essentia l hypertension I10 ; Overweight E66.3 ; Unspecified urin josselyn incontinence R32 ; Tobacco dependence F17.2 00 ; History of pulmonary emboli sm Z86.711 ; Narcotic addicti on F11.20 ; Esophageal dysmo tility K22.4 ; Hyperlipidemia E 78.5 ; COPD (chronic obstruc tive pulmonary disease) J44.9 a nd Anxiety disorder F41.9 Jamie Casanova [address] PERDOMO February, DVT (deep venous thrombosis) MD [place] I82.409 ; Overwe ight E66.3 ; [address] Hyperlipidemia E 78.5 ; Depression F32.9 ; Essential hypertension I10 ; Osteopenia M85.80 ; Tobacco dependence F17.200 and COPD (chronic obstructive pulm onary disease) J44.9 Jamie Casanova III, [address] [place]DOMO Jan, DVT (deep venous thrombosis) MD [place] I82.409 ; Essent ial [address] hypertension I10 ; Atypical hyperplasia of b reast N62 ; Depression F32.9 ; Overweight E66.3 ; Unspecif ied urinary incontinence R32 ; Tobacco dependence F17.2 00 ; History of pulmonary emboli sm Z86.711 ; Hyperlipidemia E 78.5 ; COPD (chronic obstruc tive pulmonary disease) J44.9 ; Anxiety disorder F41.9 a nd Tarsal tunnel syndrome G57.50 Jamie Casanova III, [address] [facility] Jan, DVT (deep venous thrombosis) MD Crist[place] MA I82.409 ; Overwe ight E66.3 ; [address] Hyperlipidemia E 78.5 ; Unspecified urin josselyn incontinence R32 ; Essential hypertension I10 ; Depression F32.9 ; Tobacco dependence F17.200 and COPD (chronic obstructive pulm onary disease) J44.9 Jamie Casanova III, [address] [place] [address] DR PERDOMO Jan, DVT (deep venous thrombosis) MD [place] MA I82.409 ; Atypic al hyperplasia [address] of breast N62 ; Essential hypertension I10 ; Depression F32.9 ; Overweig ht E66.3 ; Unspecified urin josselyn incontinence R32 ; Tobacco dependence F17.2 00 ; COPD (chronic obstruc tive pulmonary disease) J44.9 a nd Anxiety disorder F41.9 Jamie Casanova III, [address] [place]DOMO Dec, DVT (deep venous thrombosis) MD [place] MA I82.409 ; Essent ial [address] hypertension I10 ; Depression F32.9 ; Overweig ht E66.3 ; Osteopenia M85.8 0 ; Unspecified urinary incontin ence R32 ; Tobacco dependen ce F17.200 ; History of pulmo nary embolism Z86.711 ; PTSD ( post-traumatic stress disorder) F43.10 and COPD (chronic ob structive pulmonary diseas e) J44.9 Jamie Casanova III, [address] [facility] [address] [place] Dec, [place] [address] Jamie Casanova III, [address] [facility] Dec, [place] [address] Jamie Casanova III, [address] [facility] [address] [place]DOMO Dec, Right leg swelling M79.89 ; MD [place] Anxiety disorder F41.9 ; Chest [address] pain R07.9 ; Ess ential hypertension I10 ; Depression F32.9 ; Overweig ht E66.3 ; Osteopenia M85.8 0 ; Unspecified urinary incontin ence R32 ; Tobacco dependen ce F17.200 ; History of pulmo nary embolism Z86.711 ; COPD ( chronic obstructive pulm onary disease) J44.9 ; Hyperlip idemia E78.5 ; Tarsal tunnel sy ndrome G57.50 ; Lumbar radicular syndrome M54.16 and H/O o pioid abuse Z87.898 Jamie Casanova III, [address] [facility] [address] [place]DOMO Dec, MD [place] Jamie Casanova III, [address] [facility] [address] [place]DOMO Dec, Left-side d chest pain R07.9 and MD Crist[place] Rib pain R07.81 [address] Jamie Casanova III, [address] [facility] [address] [place]DOMO Dec, Depressio n F32.9 [place] [address] Jamie Casanova III, [address] [facility] [address] [place]DOM[place] Oct, [place] [address] Jamie Casanova III, [address] [facility] [address] [place]DOM[place], [place] [address] Jamie Casanova III, [address] [facility] Oct, [place] [address] Jamie Casanova III, [address] [facility] Sep, Depressio n F32.9 ; Essential MD Cristal [place] hypertension I10 ; Overweight [address] E66.3 ; Unspecif ied urinary incontinence R32 ; Atypical hyperplasia of b reast N62 and Tobacco dependen ce F17.200 Jamie Casanova III, [address] [facility] [address] [place]DOM[place], [place] [address] Jamie Casanova III, [address] [facility] [address] [place] Aug, [place] [address] Jamie Casanova [facility], [address] [facility] Jul, [place] [address] Jamie Casanova III, [address] [facility] [facility] Jul, [place] [address] Jamie Casanova III, [address] [facility] [address] [place]DOMO Jun, Hyperlipi demia E78.5 [place] [address] Jamie Casanova [facility], [address] [facility] [facility] Jun, [place] [address] Jamie Rosalina Casanova [facility], [address] [facility] [address] [place]DOMO Jun, Hyperlipi demia E78.5 ; MD [place] Peripheral edema R60.9 ; [address] Essential hypert ension I10 ; Depression F32.9 ; Osteopenia M85.80 ; Atypica l hyperplasia of breast N62 ; Tobacco dependence F17.2 00 and COPD (chronic obstruc tive pulmonary disease) J44.9 Jamie Casanova III, [address] [facility] [address] [place]DOM[place] May, [place] [address] Jamie Casanova [facility], [address] [facility] Mar, [place] [address] Jamie Casanova [facility], [address] [place]DOMO Mar, Essential hypertension I10 ; MD [place] Osteopenia M85.8 0 ; [address] Hyperlipidemia E 78.5 ; COPD (chronic obstruc tive pulmonary disease) J44.9 ; Atypical hyperplasia of b reast N62 ; Depression F32.9 and Tobacco dependence F17.2 00 Jamie Casanova III, [address] [facility] [address] [place]DOMO Oct, [place] [address] Jamie Casanova [facility], [address] [place]DOMO Sep, 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 ; Essential hypertension [address] I10 ; Overweight E66.3 ; Hyperlipidemia E 78.5 ; Osteopenia M85.8 0 ; Narcotic addiction F11.20 and Esophageal dysmotility K22. 4 Jamie Casanova III, [address] [place]DOMO Sep, Depressio n F32.9 ; Essential MD [place] hypertension I10 ; Overweight E66.3 ; Hyperlip idemia E78.5 ; Right upper quad rant abdominal pain R10.11 and Bronchitis J40 Jamie Casanova III, [address] [facility] [address] [place]DOMO Jun, MD [place] Jamie Casanova III, [address] [place] [address] DR PERDOMO Apr, Essential hypertension I10 ; MD [place] Annual visit for general adult medical examinat ion without abnormal finding s Z00.00 ; Atypical hyperpl dilcia of breast N62 ; Depression F32.9 ; Overweight E66.3 ; Osteopenia M85.80 ; Unspeci fied urinary incontinence R32 ; Tobacco dependence F17.2 00 ; History of pulmonary emboli sm Z86.711 ; Narcotic addicti on F11.20 ; Esophageal dysmo tility K22.4 ; Hyperlipidemia E 78.5 ; COPD (chronic obstruc tive pulmonary disease) J44.9 ; Anxiety disorder F41.9 ; PTSD (post-traumatic stress disorder) F43.10 and Lumbar radicular syndro me M54.16 Jamie Casanova III, [address] [place] [address] [address] PERDOMO Apr, MD [place] Jamie Casanova III, [address] [facility] [address] PERDOMO Mar, Depressio n F32.9 ; Bronchitis MD Crist[place] J40 ; Overweight E66.3 ; Essential hypert ension I10 and Tobacco dependen ce F17.200 Jamie Casanova III, [address] [facility] [address] [place]DOMO Mar, MD [place] Jamie Casanova III, [address] [facility] [address] [place]DOMO February, MD [place] Jamie Casanova III, [address] [facility] [address] [place]DOMO Nov, MD [place] Jamie Casanova III, [address] [facility] [address] [place]DOMO Oct, Depressio n F32.9 ; Essential MD Cristal [place] hypertension I10 ; Atypical hyperplasia of b reast N62 ; Overweight E66.3 ; Tobacco dependence F17.2 00 ; Narcotic addiction F11.20 ; Esophageal dysmotility K22. 4 ; COPD (chronic obstruc tive pulmonary disease) J44.9 a nd Anxiety disorder F41.9 Jamie Casanova III, [facility] [address] PERDOMO Oct, Encounter for immunization Z23 MD Crist[place] ; Hyperlipidemia E78.5 ; [address] Atypical hyperpl dilcia of breast N62 ; Essential hypertension I10 ; Depression F32.9 ; Overweight E66.3 ; Tobacco dependence F17.2 00 ; COPD (chronic obstruc tive pulmonary disease) J44.9 a nd Anxiety disorder F41.9 Jamie Casanova III, [address] [place] [address] [address] PERDOMO Aug, [place] [address] Jamie Casanova III, [address] [place] [address] DR PERDOMO May, Hyperlipi demia E78.5 ; Vitamin MD Cristal [place] D deficiency E55 .9 ; Essential [address] hypertension I10 ; Atypical hyperplasia of b reast N62 ; Depression F32.9 ; Unspecified urinary incontin ence R32 ; Colonic polyp K6 3.5 ; Tobacco dependence F17.2 00 ; History of pulmonary emboli sm Z86.711 ; Narcotic addicti on and Esophageal dysmo tility K22.4 Jamie Casanova III, [address] [place] [address] DR PERDOMO Mar, [place] [address] Jamie Casanova III, [address] [place] [address] [address] PERDOMO February, Essential hypertension I10 ; MD [place] Osteopenia M85.8 0 ; [address] Hyperlipidemia E 78.5 ; COPD (chronic obstruc tive pulmonary disease) J44.9 a nd Diabetes E11.9 Jamie Casanova III, [address] [facility] [address] [place]DOMO Jan, [place] [address] Jmaie Casanova III, [address] [place] [address] DR PERDOMO Jan, [place] [address] Jamie Casanova III, [facility] [address] PERDOMO Jan, Cough R05 ; UTI (urinary tract MD Cristal [place] infection) N39.0 ; Essential [address] hypertension I10 ; Depression F32.9 ; Overweig ht E66.3 ; Tobacco dependen ce F17.200 ; Narcotic addicti on F1.20 ; COPD (chronic ob structive pulmonary diseas e) J44.9 and Bilateral flank pain R10.9 Jamie Casanova III, [address] [address] [address]DOMO Dec, Acute bro nchitis J20.9 ; MD Cristal [place] Essential hypert ension I10 ; [address] Hyperlipidemia E 78.5 ; Overweight E66.3 ; Unspecified urinary incontin ence R32 ; Tobacco dependen ce F17.200 ; History of pulmo nary embolism Z86.711 ; Narcot ic addiction F11.20 and COPD (chronic obstructive pulm onary disease) J44.9 Jamie Casanova III, [address] [address] DR PERDOMO Dec, [place] [address] Jamie Casanova III, [address] [facility] [address]DOM[address] Oct, Upper abd ominal pain R10.10 ; MD Cristal [place] Essential hypert ension I10 ; [address] Overweight E66.3 ; Tobacco dependence F17.2 00 and COPD (chronic obstruc tive pulmonary disease) J44.9 Jamie Casanova III, [address] [place] [address] DR PERDOMO Oct, Upper abd ominal pain R10.10 ; MD Cristal [place] Essential hypert ension I10 ; [address] Depression F32.9 ; Overweight E66.3 ; Tobacco dependence F17.200 ; COPD ( chronic obstructive pulm onary disease) J44.9 ; Hyperlip idemia E78.5 and Vitamin D de ficiency E55.9 Jamie Casanova III, [address] [place] [address] [address] PERDOMO Jul, [place] [address] Jamie Casanova III, [address] [facility] [address] [place]DOMO Jun, [place] [address] Jamie Casanova III, [address] [facility] [address] [place]DOMO Jun, [place] [address] Jamie Casanova III, [address] [facility]DOMO May, 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 ; Essential hypertension [address] I10 ; Depression F32.9 ; Overweight E66.3 ; Tobacco dependence F17.2 00 ; Narcotic addiction F11.20 ; Hyperlipidemia E 78.5 and COPD (chronic obstruc tive pulmonary disease) J44.9 Jamie Casanova III, [address]DOMO Jan, Essential hypertension I10 ; MD Cristal [place] Thyroid nodule E 04.1 ; [address] Dysphagia R13.10 ; Depression F32.9 ; Overweig ht E66.3 ; Tobacco dependen ce F17.200 ; History of pulmo nary embolism Z86.711 ; Narcot ic addiction F11.20 ; Esophag eal dysmotility K22.4 and Hyperl ipidemia E78.5 Jamie Casanova III, [address] [place] Dec, [place] [address] Jamie Casanova III, [address] [facility] [address] [place]DOMO [place] [address] Jamie Casanova III, [address] [place]DOMO Nov, [place] [address] Jamie Casanova [facility], [address] [facility] [address] PERDOMO Nov, Overweigh t E66.3 ; Dysphagia MD Cristal [place] R13.10 and Tobac co dependence F17.200 Jamie Casanova III, [address] [place], [place] [address] Jamie Casanova [facility], [address] [place]DOMO Nov, [place] [address] Jamie Casanova III, [address] [place] Oct, [place] [address] Jamie Casanova III, [address] [facility] [address] [place]DOMO Oct, [place] [address] Jamie Casanova [facility], [address]DOMO Oct, DVT (deep venous thrombosis) MD Cristal [place] I82.409 ; Dyspha stephanie R13.10 ; [address] Suboxone mainten ance treatment complicating pre gnancy, antepartum 648.3 3 ; Atypical hyperplasia of b reast N62 ; Essential hypert ension I10 ; Depression F32.9 ; Overweight E66.3 ; Tobacco dependence F17.200 and Narc otic addiction F11.20 Jamie Casanova III, [address] [facility] [address] [place]DOMO Sep, [place] [address] Jamie Casanova III, [address] [place]DOMO Sep, MD [place]al [place] Jamie Casanova III, [address] [facility]DOMO Aug, MD Cristal [place] Jamie Casanova III, [address]DOMO May, COPD (chr onic obstructive MD Cristal [place] pulmonary diseas e) 496 ; [address] Tobacco dependen ce 305.1 ; Venous thromboem bolism 453.9 ; Overweight 278.0 2 and Thyroid nodule 241.0 Jamie Casanova III, [address]DOMO May, MD Cristal [place] Jamie Casanova III, [address]DOMO May, Venous th romboembolism 453.9 ; MD Cristal [place] Uterine bleeding 626.9 ; Atypical hyperpl dilcia of breast 611.1 ; Depressi on 311 ; COPD (chronic obstruc tive pulmonary disease) 496 ; T obacco dependence 305.1 and Overweight 278.02 Jamie Casanova III, [address]DOMO May, MD Cristal [place] Jamie Casanova III, [address] [facility] [address]DOMO May, Venous th romboembolism 453.9 MD Cristal [place] Jamie Casanova III, [address]DOMO Apr, MD Cristal [place] Jamie Casanova III, [address] [facility] [address] PERDOMO Apr, Abnormal uterine bleeding (AUB) MD Cristal [place] MA 626.9 ; Depressi on 311 ; COPD (chronic obstruc tive pulmonary disease) 496 ; S uboxone maintenance brigido tment complicating pre gnancy, antepartum 648.3 3 and Overweight 278.0 2 Jamie Casanova III, [address]DOMO Apr, MD Cristal [place] Jamie Casanova III, [address] [place]DOMO Apr, MD [place]al [place] Jamie Casanova III, [address]DOMO Apr, Vaginal b leeding 623.8 and MD Cristal [place] Tobacco dependen ce 305.1 Jamie Casanova III, [address] [place]DOM[place] Apr, [place] [address] Jamie Casanova [facility], [address] [facility] [address] [place]DOMO February, [place] [address] Jamie Casanova [facility], [address]DOMO February, COPD (chr onic obstructive MD Cristal [place]ER[place] pulmonary diseas e) 496 ; [address] Anxiety 300.00 ; Tobacco dependence 305.1 ; Suboxone maintenance brigido tment complicating pre gnancy, antepartum 648.3 3 and Abdominal pain 789.00 Jamie Casanova III, [address] [facility] [address]DOMO February, [place] [address] Jamie Casanova [facility], [address] [facility] [address] PERDOMO February, [place] [address] Jamie Casanova [facility], [address] [facility] [address] [place]DOMO Jan, [place] [address] Jamie Casanova [facility], [address] [facility] [address]DOMO Dec, Back pain 724.5 ; MD Cristal [place] Hyperlipidemia 2 72.4 ; [address] Depression 311 ; Atypical hyperplasia of b reast 611.1 ; COPD (chronic ob structive pulmonary diseas e) 496 and Tobacco dependen ce 305.1 Jamie Casanova III, [address] [facility] [address] [place]DOMO Nov, [place] [address] Jamie Casanova [facility], [address] [facility] [address] PERDOMO Nov, Hyperlipi demia 272.4 ; Back MD Cristal [place]ER[place] pain 724.5 ; Satish ous [address] thromboembolism 453.9 ; Thyroid nodule 241.0 ; C OPD (chronic obstructive pulm onary disease) 496 and Well ysabel lt exam V70.0 Jamie Casanova III, [address] [place]DOM[facility] Nov, [place] [address] Jamie Casanova [facility], [address]DOMO Aug, Hyperlipi demia 272.4 ; MD Cristal [place] Depression 311 ; Urinary [address] incontinence 788 .30 ; Anxiety 300.00 ; COPD (c hronic obstructive pulm onary disease) 496 ; Tobacco de pendence 305.1 ; Venous thrombo embolism 453.9 ; Suboxone maint enance treatment compli cating , antep artum 648.33 ; Thyroid nodule 2 41.0 and Osteopenia 733.9 0 Jamie Casanova III, [address] [place] Aug, [place] [address] Jamie Casanova III, [address] [place]O Aug, [place] [address] Jamie Casanova III, [address] [place] [address] Jamie Casanova III, [address] [place] Jul, [place] [address] Jamie Casanova III, [address] [place] Jul, Hyperlipi demia 272.4 ; MD Cristal [place]ER[place], [place] Depression 311 ; Osteopenia [address] 733.90 ; Thyroid nodule 241.0 and Venous throm boembolism 453.9 Jamie Casanova III, [address] [place] Jul, [place] [address] Jamie Casanova III, [address] [place] Jul, [place] [address] Jamie Casanova III, [address] Jul, [place] [address] Jamie Casanova III, [address] Jul, [place] [address] Jamie Casanova III, [address] [place] Jul, [place] [address] Jamie Casanova III, [address] [place] Jul, [place] [address] Jamie Casanova III, [address] [place] Jul, Pulmonary embolism 415.19 [place] [address] Jamie Casanova III, [address] [place] Jul, [place] [address] Jamie Casanova III, [address] [place] Jul, [place] [address] Jamie Casanova III, [address] [place], [place] [address] Jamie Casanova III, [address] [place] Jul, [place] [address] Jamie Casanova III, [address] [place] Jul, Thyroid n odule 241.0 ; MD Cristal [place] Anticoagulated V 58.61 and [address] Pulmonary emboli sm 415.19 Jamie Casanova III, [address] [place] Jun, [place] [address] Jamie Casanova III, [address] [place] Jun, [place] [address] Jamie Casanova III, [address] [place] Jun, [place] [address] Jamie Casanova III, [address] [place] Jun, [place] [address] Jamie Casanova III, [address] [place] Jun, [place] [address] Jamie Casanova III, [address] [place] Jun, [place] [address] Jamie Casanova III, [address] [place] Jun, [place] [address] Jamie Casanova III, [address] [place] Jun, [place] [address] Jamie Casanova III, [address] [place], [place] [address] Jamie Casanova III, [address] [place] Jun, [place] [address] Jamie Casanova III, [address] [place] Jun, [place] [address] Jamie Casanova III, [address] [place] Jun, Hypertrig lyceridemia 272.1 ; MD Cristal [place] Venous thromboem bolism 453.9 ; [address] Tobacco dependen ce 305.1 and Methadone mainte nance therapy patient 304.00 Jamie Casanova III, [address] [place] Jun, [place] [address] Jamie Casanova III, [address] [place] May, Atypical hyperplasia of breast [place] 611.1 [address] Jamie Casanova III, [address] [place] Apr, [place] [address] Jamie Casanova III, [address] [address] DR PERDOMO Mar, MD Cristal [place] Jamie Casanova III, [address] [facility] [address] [place]DOMO Mar, Depressio n 311 ; MD Cristal [place] Hypertriglycerid emia 272.1 ; Tobacco dependen ce 305.1 ; Methadone mainte nance therapy patient 304.00 a nd COPD (chronic obstruc tive pulmonary disease) 496 Jamie Casanova [facility], [address] Dec, Depressio n 311 ; Back pain MD Cristal DERAS MA 724.5 and Tobacc o dependence 305.1 Jamie Casanova [facility], [address] [place] [address] DR PERDOMO Oct, MD Cristal [place]ER[place] Jamie Rosalina Casanova [facility], [address] [place] [address] [address] PERDOMO Oct, Hyperlipi demia 272.4 ; MD Cristal [place]ER[place] Depression 311 ; Atypical hyperplasia of b reast 611.1 ; Methadone mainte nance therapy patient 304.00 ; Urinary incontinence 788 .30 and COPD (chronic obstruc tive pulmonary disease) 496 Jamie Casanova III, [address] [place] [address] [address] PERDOMO Sep, [place] [address] Jamie Casanova [facility], [address] [place] [address] DR PERDOMO Sep, Hyperlipi demia 272.4 ; MD Cristal [place]ER[place] Influenza vaccin e needed V04.81 [address] ; Atypical hyper plasia of breast 611.1 ; M ethadone maintenance ther apy patient 304.00 and Urina ry incontinence 788.30 Jamie Casanova III, [address] [place] Aug, [place] [address] Jamie Casanova [facility], [address] [place] [address] DR PERDOMO Aug, Hyperlipi demia 272.4 ; Atypical MD Cristal [place]ER[place] hyperplasia of b reast 611.1 ; Depression 311 ; Back pain 724.5 ; Methadon e maintenance therapy patient 304.00 ; Urinary incontin ence 788.30 ; Smoker 305.1 and Colonic polyp 211.3 Jamie Casanova III, [address] [facility] [address] [place]DOM[address] Aug, MD Cristal [place] Jamie Casanova III, [address]DOM[address] 14 Aug, 2013 [place] [address] Jamie Casanova III, [address] 11 Aug, 2013 Urine whi te blood cells MD Cristal [place] increased 791.7 [address] Jamie Casanova III, [address] [facility] [address]DOM[address] Jul, Hyperlipi demia 272.4 ; Back MD Cristal DER[place] pain 724.5 ; Dep ression 311 ; [address] Atypical hyperpl dilcia of breast 611.1 ; Methadon e maintenance therapy patient 304.00 ; Colonic polyp 21 1.3 and Smoker 305.1 Jamie Casanova III, [address] [place] Jun, [place] [address] Jamie Casanova III, [address] [facility] [address] [place] May, [place] [address] Jamie Casanova III, [address] [facility] [address] [place] May, [place] [address] Jamie Casanova III, [address] [place] February, [place] [address] Jamie Casanova III, [address] [facility] [address] [place] February, [place] [address] Jamie Casanova III, [address] [place] Jan, [place] [address] Jamie Casanova III, [address] [facility] [address] [place]DOMO Jan, Hyperlipi demia 272.4 ; MD Cristal [place]ER[place] Depression 311 ; Atypical hyperplasia of b reast 611.1 and Breast calcifica tion, left 793.89 Jamie Casanova III, [address] [facility] [address] [place] Dec, [place] [address] Jamie Casanova III, [address] [place], [place] [address] Jamie Casanova III, [address] [facility] [address] [place]DOM[place] Aug, [place] [address] Jamie Casanova III, [address] [facility] [address] [place] Aug, [place] [address] Jamie Casanova III, [address] [facility] [address] [place] Jul, [place] [address] Jamie Casanova III, [address] [place] Jul, [place] [address] Jamie Casanova III, [address] [place] Jun, Viral syn drome 079.99 [place] [address] Jamie Casanova III, [address] [place] Jun, [place] [address] Jamie Casanova III, [address] [place] 14 Jun, 2012 [place] [address] Jamie Casanova III, [address] [place] Jun, Viral syn drome 079.99 [place] [address] Jamie Casanova III, [address] [place] Jun, [place] [address] Jamie Casanova III, [address] [place] Jun, [place] [address] Jamie Casanova III, [address] [place] May, Hyperlipi demia 272.[place] [address] Jamie Casanova III, [address] [place] Apr[place] [address] Jamie Casanova III, [address] [place] Apr, [place] [address] Jamie Casanova III, [address] [place] February, Hyperlipi demia 272.4 ; Well MD Cristal [place]ER[place] adult exam V70.0 ; [address] Calcification of left breast 793.89 and Back pain 724.5 Jamie Casanova III, [address] [place] February, [place] [address] Jamie Casanova III, [address] [place] Oct, [place] [address] Jamie Casanova III, [address] [place] Sep, [place] [address] Jamie Casanova III, [address] [place] Jun, [place] [address] Jamie Casanova III, [address] [place] May, [place] [address] IMMUNIZATIONS Vaccine Route Administration Date Status COVID- 19 Vaccine IM Intramuscular Dec 07, 2021 Administered Influenza, quad IM Intramuscular Dec 07, 2021 Administered COVID- 19 Vaccine Unknown February 05, 2021 Administered COVID- 19 Vaccine Unknown March 05, 2021 Administered Influenza no Preserv 3 and > Unknown Aug 20, 2020 Adm inistered Influenza no Preserv 3 and > IM Intramuscular Nov 07, 2017 Ad ministered Pneumococcal IM Intramuscular Nov 22, 2015 Administered Influenza IM Intramuscular Nov 22, 2015 Administered Influenza IM Intramuscular Oct 27, 2013 Administered SOCIAL HISTORY Qualifiers Date Current Smoker REASON FOR REFERRAL FUNCTIONAL STATUS PLAN OF CARE Activity Details Follow Up 1 Week Reason:ov review U/A Future Appointment Provider Name:Jamie Casanova, 2022-11-03 11:30:00 AM, [address] [address] [place], [place], [phone], Future Appointment Provider Name:Jamie Casanova, 2022-12-13 02:00:00 PM, [address] [place] [address] [place], [place], [phone], Future Appointment Provider Name:Jamie Casanova, 2023-06-15 02:00:00 PM, [address] [place] [address] [place], [place], [phone], Pending Test Lactic Acid Pending Test Complete Blood Count Auto Di ff Pending Test Comprehensive Met. Panel Pending Test Lactic Acid Pending Test Magnesium Pending Test SLIDE REVIEW Pending Test UA CC w/rflx Micro + Cult Pending Test SARS-CoV2/FLU/RSV Pending Test Venous Blood Gases - POC Pending Test Strep A Nucleic Acid Pending Test Complete Blood Count Auto Di ff Pending Test Urinalysis Pending Test Comprehensive Met. Panel Pending Test Magnesium Pending Test Lipid Panel Pending Test Free T4 (Free Thyroxine) Pending Test Thyroid Stimulating Hormone Pending Test Urine Culture Pending Test URINALYSIS (UA) Pending Test URINE CULTURE Pending Test PROFILE, RANDOM (COMPREHENSI VE METABOLIC) Pending Test MAGNESIUM Pending Test LIPID PANEL Pending Test FREE T4 (FT4) Pending Test TSH (THYROID STIMULATING HOR NEERAJ) Pending Test CBC w DIFF Pending Test PROFILE, FASTING (COMPREHENS MIGUEL METABOLIC) Pending Test CBC w DIFF Pending Test Lipid Panel Pending Test MRI LUMBAR SPINE NO CONTRAST Pending Test PROFILE, FASTING (COMPREHENS MIGUEL METABOLIC) Pending Test LIPID PANEL Pending Test CBC w DIFF Pending Test PROFILE, FASTING (COMPREHENS MIGUEL METABOLIC) Pending Test LIPID PANEL Pending Test CBC w DIFF Pending Test PROFILE, FASTING (COMPREHENS MIGUEL METABOLIC) Pending Test LIPID PANEL Pending Test CBC w DIFF Pending Test MAMMOGRAM DIGITAL BILATERAL SCREEN Pending Test PROFILE, FASTING (COMPREHENS MIGUEL METABOLIC) Pending Test LIPID PANEL Pending Test CBC w DIFF Pending Test VITAMIN D 25-OH TOTAL Pending Test PROFILE, RANDOM (COMPREHENSI VE METABOLIC) Pending Test MAGNESIUM Pending Test FREE T4 (FT4) Pending Test TSH (THYROID STIMULATING HOR NEERAJ) Pending Test CBC w DIFF Pending Test SED RATE (ESR) Pending Test PROFILE, FASTING (COMPREHENS MIGUEL METABOLIC) Pending Test LIPID PANEL Pending Test CBC w DIFF Pending Test SED RATE (ESR) Pending Test URINALYSIS (UA) Pending Test Echocardiogram Pending Test PROFILE, RANDOM (COMPREHENSI VE METABOLIC) Pending Test CBC w DIFF Pending Test ELECTROLYTES Pending Test BUN Pending Test CREATININE VITAL SIGNS Height 65 in 2022-10-26 Height 65 in 2022-09-12 Height 65 in 2022-06-12 Height 65 in 2022-02-09 Height 65 in 2022-01-09 Height 65 in 2021-07-06 Height 65 in 2021-06-08 Height 65 in 2021-06-01 Height 65 in 2021-04-06 Height 65 in 2021-01-19 Height 65 in 2020-12-07 Height 65 in 2020-11-03 Height 65 in 2020-09-21 Height 65 in 2020-09-08 Height 65 in 2020-08-25 Height 65 in 2020-07-14 Height 65 in 2020-06-09 Height 65 in 2020-04-23 Height 65 in 2020-04-14 Height 65 in 2020-04-09 Height 65 in 2020-03-08 Height 65 in 2020-01-19 Height 65 in 2020-01-15 Height 65 in 2019-10-03 Height 65 in 2019-07-14 Height 65 in 2019-04-07 Height 65 in 2018-10-23 Height 65 in 2018-10-08 Height 65 in 2018-05-08 Height 65 in 2018-04-03 Height 65 in 2017-11-27 Height 65 in 2017-11-07 Height 65 in 2017-06-01 Height 65 in 2017-03-02 Height 65 in 2017-02-01 Height 65 in 2017-01-15 Height 65 in 2016-11-17 Height 65 in 2016-11-03 Height 65 in 2016-06-19 Height 65 in 2016-02-18 Height 65 in 2015-12-20 Height 65 in 2015-11-22 Height 65 in 2015-06-25 Height 65 in 2015-06-10 Height 65 in 2015-05-17 Height 65 in 2015-05-12 Height 65 in 2015-03-16 Height 65 in 2015-01-25 Height 65 in 2014-12-09 Height 65 in 2014-09-21 Height 65 in 2014-08-17 Height 65 in 2014-07-29 Height 65 in 2014-07-20 Height 65 in 2014-04-07 Height 65 in 2014-01-05 Height N/A in 2013-11-17 Height N/A in 2013-10-27 Height 65 in 2013-09-12 Height N/A in 2013-08-15 Height N/A in 2013-02-18 Height N/A in 2012-07-16 Height N/A in 2012-07-09 Height N/A in 2012-05-31 Height N/A in 2012-03-12 Height 65 in 2012-03-12 Weight 131 lbs 2022-10-26 Weight 146 lbs 2022-09-12 Weight 146 lbs 2022-06-12 Weight 147 lbs 2022-02-09 Weight 142 lbs 2022-01-09 Weight 149 lbs 2021-07-06 Weight 150 lbs 2021-06-08 Weight 143 lbs 2021-06-01 Weight 138 lbs 2021-04-06 Weight 133 lbs 2021-01-19 Weight 141 lbs 2020-12-07 Weight 137 lbs 2020-11-03 Weight 140 lbs 2020-09-21 Weight 142 lbs 2020-09-08 Weight 145 lbs 2020-09-01 Weight 144 lbs 2020-08-25 Weight 153 lbs 2020-07-14 Weight 150 lbs 2020-06-09 Weight 155 lbs 2020-04-23 Weight 154 lbs 2020-04-14 Weight 156 lbs 2020-04-09 Weight 153 lbs 2020-03-08 Weight 151 lbs 2020-01-19 Weight 151 lbs 2020-01-15 Weight 151 lbs 2019-10-03 Weight 149 lbs 2019-07-14 Weight 149 lbs 2019-04-07 Weight 159 lbs 2018-10-23 Weight 158 lbs 2018-10-08 Weight 162 lbs 2018-05-08 Weight 170 lbs 2018-04-03 Weight 166 lbs 2017-11-27 Weight 161 lbs 2017-11-07 Weight 159 lbs 2017-06-01 Weight 168 lbs 2017-03-02 Weight 168 lbs 2017-02-01 Weight 166 lbs 2017-01-15 Weight 166 lbs 2016-11-17 Weight 165 lbs 2016-11-03 Weight 166 lbs 2016-06-19 Weight 170 lbs 2016-02-18 Weight 179 lbs 2015-12-20 Weight 177 lbs 2015-11-22 Weight 173 lbs 2015-06-25 Weight 170 lbs 2015-06-10 Weight 167 lbs 2015-05-17 Weight 166 lbs 2015-05-12 Weight 170 lbs 2015-03-16 Weight 174 lbs 2015-01-25 Weight 177 lbs 2014-12-09 Weight 172 lbs 2014-09-21 Weight 166 lbs 2014-08-17 Weight 164 lbs 2014-07-29 Weight 164 lbs 2014-07-20 Weight 175 lbs 2014-04-07 Weight 173 lbs 2014-01-05 Weight 180 lbs 2013-11-17 Weight 183 lbs 2013-10-27 Weight 167 lbs 2013-09-12 Weight 174 lbs 2013-08-15 Weight 162 lbs 2013-02-18 Weight 162 lbs 2012-07-16 Weight 160 lbs 2012-07-09 Weight 159 lbs 2012-05-31 Weight 163 lbs 2012-03-12 BMI 21.80 kg/m2 2022-10-26 BMI 24.29 kg/m2 2022-09-12 BMI 24.29 kg/m2 2022-06-12 BMI 24.46 kg/m2 2022-02-09 BMI 23.63 kg/m2 2022-01-09 BMI 24.79 kg/m2 2021-07-06 BMI 24.96 kg/m2 2021-06-08 BMI 23.79 kg/m2 2021-06-01 BMI 22.96 kg/m2 2021-04-06 BMI 22.13 kg/m2 2021-01-19 BMI 23.46 kg/m2 2020-12-07 BMI 22.80 kg/m2 2020-11-03 BMI 23.29 kg/m2 2020-09-21 BMI 23.63 kg/m2 2020-09-08 BMI 23.96 kg/m2 2020-08-25 BMI 25.46 kg/m2 2020-07-14 BMI 24.96 kg/m2 2020-06-09 BMI 25.79 kg/m2 2020-04-23 BMI 25.62 kg/m2 2020-04-14 BMI 25.96 kg/m2 2020-04-09 BMI 25.46 kg/m2 2020-03-08 BMI 25.12 kg/m2 2020-01-19 BMI 25.12 kg/m2 2020-01-15 BMI 25.12 kg/m2 2019-10-03 BMI 24.79 kg/m2 2019-07-14 BMI 24.79 kg/m2 2019-04-07 BMI 26.46 kg/m2 2018-10-23 BMI 26.29 kg/m2 2018-10-08 BMI 26.96 kg/m2 2018-05-08 BMI 28.29 kg/m2 2018-04-03 BMI 27.62 kg/m2 2017-11-27 BMI 26.79 kg/m2 2017-11-07 BMI 26.46 kg/m2 2017-06-01 BMI 27.95 kg/m2 2017-03-02 BMI 27.95 kg/m2 2017-02-01 BMI 27.62 kg/m2 2017-01-15 BMI 27.62 kg/m2 2016-11-17 BMI 27.45 kg/m2 2016-11-03 BMI 27.62 kg/m2 2016-06-19 BMI 28.29 kg/m2 2016-02-18 BMI 29.78 kg/m2 2015-12-20 BMI 29.45 kg/m2 2015-11-22 BMI 28.79 kg/m2 2015-06-25 BMI 28.29 kg/m2 2015-06-10 BMI 27.79 kg/m2 2015-05-17 BMI 27.62 kg/m2 2015-05-12 BMI 28.29 kg/m2 2015-03-16 BMI 28.95 kg/m2 2015-01-25 BMI 29.45 kg/m2 2014-12-09 BMI 28.62 kg/m2 2014-09-21 BMI 27.62 kg/m2 2014-08-17 BMI 27.29 kg/m2 2014-07-29 BMI 27.29 kg/m2 2014-07-20 BMI 29.12 kg/m2 2014-04-07 BMI 28.79 kg/m2 2014-01-05 BMI 29.95 kg/m2 2013-11-17 BMI 30.45 kg/m2 2013-10-27 BMI 27.79 kg/m2 2013-09-12 BMI 28.95 kg/m2 2013-08-15 BMI 26.96 kg/m2 2013-02-18 BMI 26.96 kg/m2 2012-07-16 BMI 26.62 kg/m2 2012-07-09 BMI 26.46 kg/m2 2012-05-31 BMI 27.12 kg/m2 2012-03-12 Heart Rate 81 /min 2022-10-26 Heart Rate 98 /min 2022-09-12 Heart Rate 94 /min 2022-06-12 Heart Rate 89 /min 2022-02-09 Heart Rate 84 /min 2022-01-09 Heart Rate 92 /min 2021-07-06 Heart Rate 70 /min 2021-06-08 Heart Rate 61 /min 2021-06-01 Heart Rate 77 /min 2021-04-06 Heart Rate 92 /min 2021-01-19 Heart Rate 94 /min 2020-12-07 Heart Rate 89 /min 2020-11-03 Heart Rate 86 /min 2020-09-21 Heart Rate 96 /min 2020-09-08 Heart Rate 76 /min 2020-08-25 Heart Rate 86 /min 2020-07-14 Heart Rate 65 /min 2020-06-09 Heart Rate 98 /min 2020-04-23 Heart Rate 80 /min 2020-04-14 Heart Rate 95 /min 2020-04-09 Heart Rate 97 /min 2020-03-08 Heart Rate 98 /min 2020-01-19 Heart Rate 96 /min 2020-01-15 Heart Rate 96 /min 2019-10-03 Heart Rate 95 /min 2019-07-14 Heart Rate 79 /min 2019-04-07 Heart Rate 78 /min 2018-10-23 Heart Rate 79 /min 2018-10-08 Heart Rate 100 /min 2018-05-08 Heart Rate 78 /min 2018-04-03 Heart Rate 70 /min 2017-11-27 Heart Rate 85 /min 2017-11-07 Heart Rate 69 /min 2017-06-01 Heart Rate 89 /min 2017-03-02 Heart Rate 70 /min 2017-02-01 Heart Rate 62 /min 2017-01-15 Heart Rate 72 /min 2016-11-17 Heart Rate 63 /min 2016-11-03 Heart Rate 76 /min 2016-06-19 Heart Rate 81 /min 2016-02-18 Heart Rate 80 /min 2015-12-20 Heart Rate 77 /min 2015-11-22 Heart Rate 71 /min 2015-06-25 Heart Rate 83 /min 2015-06-10 Heart Rate 65 /min 2015-05-17 Heart Rate 71 /min 2015-05-12 Heart Rate 71 /min 2015-03-16 Heart Rate 74 /min 2015-01-25 Heart Rate 82 /min 2014-12-09 Heart Rate 71 /min 2014-09-21 Heart Rate 60 /min 2014-08-17 Heart Rate 75 /min 2014-07-29 Heart Rate 75 /min 2014-07-20 Heart Rate 81 /min 2014-04-07 Heart Rate 82 /min 2014-01-05 Heart Rate 92 /min 2013-11-17 Heart Rate 81 /min 2013-10-27 Heart Rate 110 /min 2013-09-12 Heart Rate 63 /min 2013-08-15 Heart Rate 88 /min 2013-02-18 Heart Rate 68 /min 2012-07-16 Heart Rate 80 /min 2012-07-09 Heart Rate 80 /min 2012-05-31 Heart Rate 72 /min 2012-03-12 Temperature 96.7 degrees Fahrenheit 2022-10-26 Temperature 96.7 degrees Fahrenheit 2022-09-12 Temperature 96.7 degrees Fahrenheit 2022-06-12 Temperature 96.8 degrees Fahrenheit 2022-02-09 Temperature 97.1 degrees Fahrenheit 2022-01-09 Temperature 97.0 degrees Fahrenheit 2021-06-08 Temperature 97.0 degrees Fahrenheit 2021-06-01 Temperature 97.2 degrees Fahrenheit 2021-04-06 Temperature 96.6 degrees Fahrenheit 2021-01-19 Temperature 95.7 degrees Fahrenheit 2020-12-07 Temperature 96.7 degrees Fahrenheit 2020-11-03 Temperature 96.5 degrees Fahrenheit 2020-09-21 Temperature 97.1 degrees Fahrenheit 2020-09-08 Temperature 96.5 degrees Fahrenheit 2020-08-25 Temperature 96.7 degrees Fahrenheit 2020-07-14 Temperature 96.2 degrees Fahrenheit 2020-06-09 Temperature 96.9 degrees Fahrenheit 2020-04-23 Temperature 97.3 degrees Fahrenheit 2020-04-14 Temperature 97.3 degrees Fahrenheit 2020-04-09 Temperature 98.3 degrees Fahrenheit 2018-04-03 Oximetry 93 % 2022-09-12 Oximetry 93 % 2022-06-12 Oximetry 93 % 2014-07-20 Blood pressure systolic 126 mm Hg 2022-10-26 Blood pressure diastolic 82 mm Hg 2022-10-26 MEDICATIONS Medication Instructions Dosage Frequency Start End Duration Statu s Date Date Cyclobenzaprine Orally Once a 1 tablet 24h 30 day(s) Active HCl 10 MG day at bedtime as needed Cyclobenzaprine Orally every 1 tablet Sep, Oct, 10 days Ac tive HCl 10 MG six hours prn at bedtime 2021 2022 muscle spasm as needed Gabapentin 300 MG Orally 3 times 2 capsule 8h Active a day Albuterol Sulfate INHALE 2 Activ e HFA 108 (90 Base) PUFFS MCG/ACT EVERY 6 HOURS NEEDED Amitriptyline HCl Orally Once a 1 tablet 24h Mar, Active 50 MG day at bedtime 2021 predniSONE 20 MG Orally Once a 1 tablet 24h Sep, Oct, 10 days Active day 2021 2022 DULoxetine HCl 20 Orally Once a 1 capsule 24h Active MG day Potassium Chloride TAKE ONE Acti ve ER 20 MEQ TABLET BY MOUTH EVERY DAY WITH FOOD. Atorvastatin TAKE ONE Active Calcium 10 MG TABLET BY MOUTH EVERY DAY Xarelto 20 MG TAKE ONE Active TABLET BY MOUTH EVERY DAY Wixela Inhub Inhalation 1 puff 12h May, Active 250-50 MCG/ACT Twice a day 2021 ARIPiprazole 2 MG Orally Once a 2 tablets 24h Active day Furosemide 40 MG TAKE ONE Active TABLET BY MOUTH TWICE A DAY clonazePAM 0.5 MG Orally Twice a 1 tablet 12h Active day PROCEDURES Procedure Date Ordered Result Body Site OCCULT BLOOD, FECES, SINGLE May 12, 2015 EKG 2020-01-15 N/A MEASURE BLOOD OXYGEN LEVEL Jul 20, 2014 PHONE E/M BY PHYS 21-30 MIN Oct 19, 2020 IMMUNIZATION ADMIN Oct 27, 2013 PHONE E/M BY PHYS 21-30 MIN Nov 01, 2020 MEASURE BLOOD OXYGEN LEVEL Jun 12, 2022 PHONE E/M BY PHYS 21-30 MIN Sep 01, 2020 IMMUNIZATION ADMIN Nov 07, 2017 IMMUNIZATION ADMIN Nov 22, 2015 Pneumococcal Nov 22, 2015 PHONE E/M BY PHYS 11-20 MIN February 09, 2020 CYTOPATH, C/V, INDEX ADD-ON May 12, 2015 INFLUENZA Oct 27, 2013 INFLUENZA Nov 22, 2015 PHONE E/M BY PHYS 11-20 MIN February 16, 2020 FLU SHOT Nov 07, 2017 PHONE E/M BY PHYS 11-20 MIN March 01, 2020 PHONE E/M BY PHYS 11-20 MIN February 02, 2020 MEASURE BLOOD OXYGEN LEVEL Sep 12, 2022 PHONE E/M BY PHYS 11-20 MIN Nov 16, 2020 PHONE E/M BY PHYS 11-20 MIN March 19, 2020 URINE-NO MICRO May 08, 2018 RESULTS Name Result Date Reference Range Drug Screen Urine 2022-10-19 Opiate Screen Urine Not Detected Not Detect Barbiturates, Urine Not Detected Not Detect Phencyclidine Screen Urine Not Detected Not D etect Amphetamine Screen Urine Not Detected Not Det ect Benzodiazepines Screen Urine Not Detected Not Detect Cocaine Screen Urine POSITIVE Not Detect Cannabinoid Screen Urine POSITIVE Not Det ect Fentanyl, urine Not Detected Not Detect COVID-19 ID NOW ([facility]) 2022-10-19 IDNOW Serial# [id number] COVID-19 Test Negative Negative COVID-19 Note See Note UA ClnCatch+Micro w/rflx Cult 2022-10-19 Color Urine Yellow Appearance Urine Clear PH 7.5 5.0-9.0 Glucose Urine UA Negative Negative Urine Blood Negative Negative Specific [place] - Urine <= 1.005 1.005-1 .025 Urine Protein Negative Neg-Trace Urine Ketones Negative Negative Nitrite Urine Negative Negative Leukocyte Esterase Urine Trace Negativ e RBC Urine 0-2 0-2 WBC Urine 0-5 0-5 Squamous Epithelial Cell Urine 0-2 0 -2 Bacteria Urine 4+ None Seen Hyaline Casts Urine 0-2 0-2 Influenza A B2 ID NOW ([facility]) 2022-10-19 IDNOW Serial# [id number] Influenza A Negative Negative Influenza B2 Negative Negative Influenza A B2 Note See Note MR lumbar spine wo con 2022-05-31 MM tomosynthesis screening BI 2021-02-23 Gram stain 2020-12-07 Eye Culture 2020-12-07 US ABD 2020-05-25 US LEG BILATERAL VENOUS DOPPLER 2020-04-09 CHEM 7 PROFILE 2020-01-15 NA 140 135-145 K 3.9 3.3-5.1 CL 103 96-108 CO2 30 22-29 ANION GAP 11 12-20 GLUCOSE,RANDOM 105 60-115 BUN 10 9-16 CREATININE 0.67 0.5-1.4 ESTIMATED GFR > 60 ESTIMATED CrCl 80.9 TROPONIN-I 2020-01-15 TROPONIN-I < 0.03 < 0.03 CBC with MANUAL DIFFERENTIAL 2020-01-15 WBC 15.9 4.8-10.8 ABSOLUTE NEUTROPHIL COUNT 11.5 2.2-7. 9 RBC 4.62 4.20-5.50 HEMOGLOBIN 14.5 12.0-16.0 HEMATOCRIT 43.6 37-47 MCV 94.2 80-98 MCH 31.3 27.0-33.0 MCHC 33.2 31.0-35.0 PLATELET COUNT 275 160-400 RDW 12.4 11.0-16.0 SEGS 71 45-73 LYMPHOCYTES 24 20-40 MONOCYTES 5 2-11 PLATELET ESTIMATE NORMAL NORMAL PLATELET MORPHOLOGY NORMAL NORMAL RBC MORPHOLOGY NORMAL NORMAL PROTHROMBIN TIME (PT, INR) 2020-01-15 INTERNATIONAL NORM. RATIO 0.9 SEE NO TE PROTHROMBIN TIME 10.5 10.8-13.0 PARTIAL THROMBOPLASTIN TIME 2020-01-15 (PTT) PARTIAL THROMBOPLASTIN TIME 29.1 24.1 -38.0 VENOUS DOPP RT LOWER LEG 2020-01-15 CHEST 2 VIEWS 2020-01-08 BASIC METABOLIC PROFILE FAST 2019-09-04 NA 144 135-145 K 4.0 3.3-5.1 CL 104 96-108 CO2 30 22-29 ANION GAP 14 12-20 FASTING BLOOD SUGAR 95 60-99 BUN 8 9-16 CREATININE 0.63 0.5-1.4 ESTIMATED GFR > 60 CALCIUM 9.0 8.4-10.2 MRI LUMBAR SPINE NO CONTRAST 2019-08-21 PROFILE, RANDOM (COMPREHENSIVE 2019-07-28 METABOLIC) NA 143 135-145 K 4.1 3.3-5.1 CL 102 96-108 CO2 34 22-29 ANION GAP 11 12-20 GLUCOSE,RANDOM 98 60-115 BUN 8 9-16 CREATININE 0.68 0.5-1.4 ESTIMATED GFR > 60 PROTEIN, TOTAL 6.2 6.5-8.0 ALBUMIN 4.2 3.5-5.0 BILIRUBIN, TOTAL 0.3 0.0-1.0 CALCIUM 9.3 8.4-10.2 ALK. PHOS. 72 39-117 GOT 16 5-31 GPT 21 0-31 CBC w DIFF 2019-07-28 WBC 14.1 4.8-10.8 ABSOLUTE NEUTROPHIL COUNT 8.4 2.2-7. 9 RBC 4.45 4.20-5.50 HEMOGLOBIN 14.4 12.0-16.0 HEMATOCRIT 41.8 37-47 MCV 93.7 80-98 MCH 32.3 27.0-33.0 MCHC 34.4 31.0-35.0 PLATELET COUNT 273 160-400 RDW 12.1 11.0-16.0 NEUTROPHILS 59.5 45-73 LYMPHOCYTES 32.9 20-40 MONOCYTES 4.7 2-11 EOSINOPHILS 1.7 0-4 BASOPHILS 1.2 0-2 PROFILE, FASTING (COMPREHENSIVE 2018-10-14 METABOLIC) NA 141 135-145 K 4.6 3.3-5.1 CL 104 96-108 CO2 30 22-29 ANION GAP 12 12-20 FASTING BLOOD SUGAR 92 60-99 BUN 10 9-16 CREATININE 0.71 0.5-1.4 ESTIMATED GFR > 60 PROTEIN, TOTAL 6.5 6.5-8.0 ALBUMIN 4.2 3.5-5.0 BILIRUBIN, TOTAL 0.7 0.0-1.0 CALCIUM 9.4 8.4-10.2 ALK. PHOS. 79 39-117 GOT 15 5-31 GPT 20 0-31 LIPASE 2018-10-14 LIPASE 6 8-78 LIPID PANEL 2018-10-14 CHOLESTEROL 178 TRIGLYCERIDE 289 HDL 33 LDL CALCULATED 88 CBC w DIFF 2018-10-14 WBC 11.8 4.8-10.8 ABSOLUTE NEUTROPHIL COUNT 7.2 2.2-7. 9 RBC 5.09 4.20-5.50 HEMOGLOBIN 16.0 12.0-16.0 HEMATOCRIT 46.6 37-47 MCV 91.5 80-98 MCH 31.4 27.0-33.0 MCHC 34.3 31.0-35.0 PLATELET COUNT 231 160-400 RDW 12.9 11.0-16.0 NEUTROPHILS 60.9 45-73 LYMPHOCYTES 32.7 20-40 MONOCYTES 4.1 2-11 EOSINOPHILS 1.5 0-4 BASOPHILS 0.8 0-2 US ABD 2018-10-14 URINE DIP STICK 2018-05-08 SG 1.020 pH 6 GEORGETTE neg NIT neg PRO neg GLU normal KET neg UBG normal DRU neg BLD neg Menstrating neg PROFILE, FASTING (COMPREHENSIVE 2017-09-07 METABOLIC) NA 140 135-145 K 4.2 3.3-5.1 CL 106 96-108 CO2 29 22-29 ANION GAP 9 12-20 FASTING BLOOD SUGAR 105 60-99 BUN 13 9-16 CREATININE 0.71 0.5-1.4 ESTIMATED GFR > 60 PROTEIN, TOTAL 6.7 6.5-8.0 ALBUMIN 4.3 3.5-5.0 BILIRUBIN, TOTAL 0.5 0.0-1.0 CALCIUM 9.1 8.4-10.2 ALK. PHOS. 86 39-117 GOT 21 5-31 GPT 28 0-31 LIPID PANEL 2017-09-07 CHOLESTEROL 185 TRIGLYCERIDE 239 HDL 31 LDL CALCULATED 107 CBC w DIFF 2017-09-07 WBC 10.3 4.8-10.8 ABSOLUTE NEUTROPHIL COUNT 4.6 2.2-7. 9 RBC 5.04 4.20-5.50 HEMOGLOBIN 15.9 12.0-16.0 HEMATOCRIT 46.8 37-47 MCV 92.8 80-98 MCH 31.5 27.0-33.0 MCHC 33.9 31.0-35.0 PLATELET COUNT 245 160-400 RDW 13.1 11.0-16.0 NEUTROPHILS 44.5 45-73 LYMPHOCYTES 45.9 20-40 MONOCYTES 4.9 2-11 EOSINOPHILS 3.0 0-4 BASOPHILS 1.7 0-2 VITAMIN D 25-OH TOTAL 2017-09-07 VITAMIN D 25-OH TOTAL 26.6 > 30 MAMMOGRAM DIGITAL BILATERAL 2017-09-04 SCREEN PROFILE, FASTING (COMPREHENSIVE 2017-05-31 METABOLIC) NA 139 135-145 K 4.0 3.3-5.1 CL 103 96-108 CO2 24 22-29 ANION GAP 16 12-20 FASTING BLOOD SUGAR 127 60-99 BUN 23 9-16 CREATININE 0.80 0.5-1.4 ESTIMATED GFR > 60 PROTEIN, TOTAL 7.3 6.5-8.0 ALBUMIN 4.7 3.5-5.0 BILIRUBIN, TOTAL 1.1 0.0-1.0 CALCIUM 9.7 8.4-10.2 ALK. PHOS. 73 39-117 GOT 19 5-31 GPT 29 0-31 HEMOGLOBIN A1C 2017-05-31 (GLYCOHEMOGLOBIN) HEMOGLOBIN A1C % (HH) 5.6 ESTIMATED AVG GLUCOSE 114 LIPID PANEL 2017-05-31 CHOLESTEROL 218 TRIGLYCERIDE 239 HDL 38 LDL CALCULATED 133 CBC with MANUAL DIFFERENTIAL 2017-05-31 WBC 14.4 4.8-10.8 ABSOLUTE NEUTROPHIL COUNT 10.2 2.2-7. 9 RBC 5.36 4.20-5.50 HEMOGLOBIN 16.7 12.0-16.0 HEMATOCRIT 49.8 37-47 MCV 92.9 80-98 MCH 31.1 27.0-33.0 MCHC 33.5 31.0-35.0 PLATELET COUNT 296 160-400 RDW 12.9 11.0-16.0 SEGS 64 45-73 BANDS 1 3-5 LYMPHOCYTES 30 20-40 MONOCYTES 5 2-11 PLATELET ESTIMATE NORMAL NORMAL PLATELET MORPHOLOGY NORMAL NORMAL RBC MORPHOLOGY NORMAL NORMAL VITAMIN D 25-OH TOTAL 2017-05-31 VITAMIN D 25-OH TOTAL 19.3 > 30 PROFILE, FASTING (COMPREHENSIVE 2016-11-14 METABOLIC) NA 139 135-145 K 4.0 3.3-5.1 CL 105 96-108 CO2 27 22-29 ANION GAP 11 12-20 FASTING BLOOD SUGAR 89 60-99 BUN 7 9-16 CREATININE 0.77 0.5-1.4 ESTIMATED GFR > 60 PROTEIN, TOTAL 6.8 6.5-8.0 ALBUMIN 4.6 3.5-5.0 BILIRUBIN, TOTAL 0.7 0.0-1.0 CALCIUM 9.2 8.4-10.2 ALK. PHOS. 88 39-117 GOT 19 5-31 GPT 29 0-31 HEMOGLOBIN A1C 2016-11-14 (GLYCOHEMOGLOBIN) HEMOGLOBIN A1C % (HH) 5.6 ESTIMATED AVG GLUCOSE 114 LIPID PANEL 2016-11-14 CHOLESTEROL 178 TRIGLYCERIDE 166 HDL 36 LDL CALCULATED 109 LDH 2016-11-14 LDH 138 122-220 CBC w DIFF 2016-11-14 WBC 8.6 4.8-10.8 ABSOLUTE NEUTROPHIL COUNT 4.2 2.2-7. 9 RBC 5.07 4.20-5.50 HEMOGLOBIN 15.7 12.0-16.0 HEMATOCRIT 46.9 37-47 MCV 92.5 80-98 MCH 31.0 27.0-33.0 MCHC 33.6 31.0-35.0 PLATELET COUNT 231 160-400 RDW 13.0 11.0-16.0 NEUTROPHILS 48.2 45-73 LYMPHOCYTES 43.0 20-40 MONOCYTES 4.4 2-11 EOSINOPHILS 3.1 0-4 BASOPHILS 1.2 0-2 SED RATE (ESR) 2016-11-14 SED RATE 4 0-20 US ABD 2016-11-14 PROFILE, FASTING (COMPREHENSIVE 2016-06-14 METABOLIC) NA 136 135-145 K 4.3 3.3-5.1 CL 101 96-108 CO2 28 22-29 ANION GAP 11 12-20 FASTING BLOOD SUGAR 86 60-99 BUN 13 9-16 CREATININE 0.77 0.5-1.4 ESTIMATED GFR > 60 PROTEIN, TOTAL 6.4 6.5-8.0 ALBUMIN 4.4 3.5-5.0 BILIRUBIN, TOTAL 0.5 0.0-1.0 CALCIUM 9.1 8.4-10.2 ALK. PHOS. 80 39-117 GOT 21 5-31 GPT 31 0-31 LIPID PANEL 2016-06-14 CHOLESTEROL 245 TRIGLYCERIDE 310 HDL 31 LDL CALCULATED 152 CBC w DIFF 2016-06-14 WBC 10.2 4.8-10.8 ABSOLUTE NEUTROPHIL COUNT 5.0 2.2-7. 9 RBC 4.85 4.20-5.50 HEMOGLOBIN 15.1 12.0-16.0 HEMATOCRIT 45.0 37-47 MCV 92.8 80-98 MCH 31.2 27.0-33.0 MCHC 33.6 31.0-35.0 PLATELET COUNT 226 160-400 RDW 12.5 11.0-16.0 NEUTROPHILS 49.1 45-73 LYMPHOCYTES 40.9 20-40 MONOCYTES 5.2 2-11 EOSINOPHILS 3.5 0-4 BASOPHILS 1.3 0-2 VITAMIN D 25-OH TOTAL 2016-06-14 VITAMIN D 25-OH TOTAL 21.6 > 30 XR GIAC 2015-12-14 VITAMIN D 25-OH TOTAL 2015-10-12 VITAMIN D 25-OH TOTAL 24.2 > 30 PROTHROMBIN TIME (PT, INR) 2015-06-15 INTERNATIONAL NORM. RATIO 0.9 SEE NO TE PROTHROMBIN TIME 10.3 10.1-13.1 PARTIAL THROMBOPLASTIN TIME 2015-06-15 (PTT) PARTIAL THROMBOPLASTIN TIME 30.0 24.2 -37.7 FIBRINOGEN 2015-06-15 FIBRINOGEN 350 259-690 ANTITHROMBIN III & AG (REFLEX) 2015-06-15 ANTITHROMBIN III ACTIVITY 91 80-120 ANTITHROMBIN III ANTIGEN Test not performed HOMOCYSTEINE 2015-06-15 HOMOCYSTEINE 9.1 <10.4 PROTEIN C ACTIVITY REFLEX AG 2015-06-15 PROTEIN C ACTIVITY 85 70-180 PROTEIN C ANTIGEN Test not performed PROTEIN S ACTIVITY REFLEX AG 2015-06-15 PROTEIN S ACTIVITY RFLX TOT&FR 83 6 0-140 PROTEIN S TOTAL (ANTIGENIC) Test not performed PROTEIN S FREE ANTIGEN Test not performed PT [id number] 2015-06-15 PROTHROMBIN [id number] SEE NOTE () [id number] SEE NOTE () [id number] SEE NOTE () LUPUS ANTICOAGULANT PANEL 2015-06-15 INTERPRETATION SEE NOTE () PTT(LAC) SCREEN 32 <=40 DRVVT MIX INTERPRETATION Not Indicated () DRVVT SCREEN 35 <=45 DRVVT SEE NOTE () HEXAGONAL PHASE NEUTRALIZATION Test not performed DRVVT CONFIRMATION Test not performed DRVVT 1:1 MIX Test not performed DRVVT INCUBATED 1:1 MIX Test not performed FACTOR V LEIDEN 2015-06-15 FACTOR V LEIDEN SEE NOTE () [id number] SEE NOTE () [id number] SEE NOTE () GUAIAC, SINGLE SPECIMEN 2015-05-12 GUAIAC PT, INR - POC 2015-05-12 INR - POC 1.7 2.0-3.0 PT, INR - POC 2015-04-29 INR - POC 3.3 2.0-3.0 PT, INR - POC 2015-04-15 INR - POC 2.2 2.0-3.0 PT, INR - POC 2015-04-01 INR - POC 1.8 2.0-3.0 PT, INR - POC 2015-03-26 INR - POC 2.2 2.0-3.0 PT, INR - POC 2015-03-18 INR - POC 5.3 2.0-3.0 PT, INR - POC 2015-03-08 INR - POC 3.1 2.0-3.0 PT, INR - POC 2015-03-01 INR - POC 2.3 2.0-3.0 PT, INR - POC 2015-02-26 INR - POC 5.5 2.0-3.0 PT, INR - POC 2015-02-01 INR - POC 2.9 2.0-3.0 PT, INR - POC 2015-01-19 INR - POC 4.1 2.0-3.0 PT, INR - POC 2015-01-05 INR - POC 2.8 2.0-3.0 PT, INR - POC 2014-12-22 INR - POC 1.6 2.0-3.0 PROFILE, FASTING (COMPREHENSIVE 2014-12-22 METABOLIC) NA 139 135-145 K 4.1 3.3-5.1 CL 106 96-108 CO2 24 22-29 ANION GAP 13 12-20 FASTING BLOOD SUGAR 101 60-99 BUN 16 9-16 CREATININE 0.76 0.5-1.4 ESTIMATED GFR > 60 PROTEIN, TOTAL 6.6 6.5-8.0 ALBUMIN 4.1 3.5-5.0 BILIRUBIN, TOTAL 0.3 0.0-1.0 CALCIUM 9.1 8.4-10.2 ALK. PHOS. 85 39-117 GOT 25 5-31 GPT 39 0-31 LIPID PANEL 2014-12-22 CHOLESTEROL 228 TRIGLYCERIDE 499 HDL 27 LDL Test not performed FREE T4 (FT4) 2014-12-22 FREE T4 0.79 0.71-1.85 TSH (THYROID STIMULATING 2014-12-22 HORMONE) TSH 1.74 0.32-4.0 CBC w DIFF 2014-12-22 WBC 8.0 4.8-10.8 ABSOLUTE NEUTROPHIL COUNT 3.6 2.2-7. 9 RBC 5.07 4.20-5.50 HEMOGLOBIN 15.0 12.0-16.0 HEMATOCRIT 44.1 37-47 MCV 87.1 80-98 MCH 29.5 27.0-33.0 MCHC 33.9 31.0-35.0 PLATELET COUNT 202 160-400 RDW 13.0 11.0-16.0 NEUTROPHILS 45.7 45-73 LYMPHOCYTES 43.8 20-40 MONOCYTES 5.7 2-11 EOSINOPHILS 3.1 0-4 BASOPHILS 1.7 0-2 COLLAGEN CROSSLINKS NTX 2014-12-22 N-TELOPEPTIDE 49 4-64 NXT CREARU 189.7 20-320 THYROGLOBULIN AB, SERUM 2014-12-22 THYROGLOBULIN AB, SERUM <1 <=1 THYROID PEROXIDASE AB (TPO) 2014-12-22 THYROID PEROXIDASE AB <1 <9 VITAMIN D 25-OH TOTAL 2014-12-22 VITAMIN D 25-OH TOTAL 26.8 > 30 MAMMOGRAM DIGITAL BILATERAL 2015-01-08 SCREEN PT, INR - POC 2014-11-30 INR - POC 2.5 2.0-3.0 PT, INR - POC 2014-11-10 INR - POC 2.0 2.0-3.0 PT, INR - POC 2014-10-27 INR - POC 2.4 2.0-3.0 PT, INR - POC 2014-10-13 INR - POC 1.8 2.0-3.0 PT, INR - POC 2014-10-06 INR - POC 1.7 2.0-3.0 PT, INR - POC 2014-09-22 INR - POC 2.4 2.0-3.0 PT, INR - POC 2014-09-10 INR - POC 2.4 2.0-3.0 PROFILE, RANDOM (COMPREHENSIVE 2014-09-10 METABOLIC) NA 139 135-145 K 4.4 3.3-5.1 CL 105 96-108 CO2 25 22-29 ANION GAP 13 12-20 GLUCOSE,RANDOM 72 60-115 BUN 22 9-16 CREATININE 0.74 0.5-1.4 ESTIMATED GFR > 60 PROTEIN, TOTAL 6.8 6.5-8.0 ALBUMIN 4.2 3.5-5.0 BILIRUBIN, TOTAL 0.3 0.0-1.0 CALCIUM 9.2 8.4-10.2 ALK. PHOS. 86 39-117 GOT 25 <3-31 GPT 39 <6-31 LIPID PANEL 2014-09-10 CHOLESTEROL 251 TRIGLYCERIDE 442 HDL 27 LDL Test not performed CBC w DIFF 2014-09-10 WBC 7.7 4.8-10.8 ABSOLUTE NEUTROPHIL COUNT 2.9 2.2-7. 9 RBC 4.86 4.20-5.50 HEMOGLOBIN 14.4 12.0-16.0 HEMATOCRIT 43.3 37-47 MCV 89.1 80-98 MCH 29.6 27.0-33.0 MCHC 33.2 31.0-35.0 PLATELET COUNT 245 160-400 RDW 13.5 11.0-16.0 NEUTROPHILS 38.0 45-73 LYMPHOCYTES 49.8 20-40 MONOCYTES 6.8 2-11 EOSINOPHILS 4.0 0-4 BASOPHILS 1.4 0-2 VITAMIN D 25-OH TOTAL 2014-09-10 VITAMIN D 25-OH TOTAL 23.8 > 30 BONE DENSITY DEXA 2014-09-01 PROFILE, RANDOM (COMPREHENSIVE METABOLIC) ELECTROLYTES NA K CL CO2 ANION GAP GLUCOSE,RANDOM BUN CREATININE CREATININE ESTIMATED GFR ESTIMATED CrCl PROTEIN, TOTAL ALBUMIN BILIRUBIN, TOTAL CALCIUM ALK. PHOS. GOT GPT LIPID PANEL CHOLESTEROL TRIGLYCERIDE HDL LDL CBC w DIFF MANUAL DIFF FLAG WBC WBC ABSOLUTE NEUTROPHIL COUNT ABSOLUTE NEUTROPHIL COUNT RBC HEMOGLOBIN HEMATOCRIT MCV MCH MCHC PLATELET COUNT PLATELET COUNT RDW NEUTROPHILS LYMPHOCYTES MONOCYTES EOSINOPHILS BASOPHILS ABSOLUTE NEUTROPHIL COUNT ABSOLUTE LYMPHOCYTE COUNT ABSOLUTE MONOCYTE COUNT ABSOLUTE EOSINOPHIL COUNT ABSOLUTE BASOPHIL COUNT IG/BANDS BAND FLAG BLAST FLAG VARIANT LYMPHS DFLT N DFLT L DFLT M DFLT E DFLT B LRI URI MPV FWBC FLAG NRBC FLAG RRBC FLAG NWBC FLAG MPV FLAG VITAMIN D 25-OH TOTAL VITAMIN D 25-OH TOTAL PROTHROMBIN TIME (PT, INR) 2014-08-06 INTERNATIONAL NORM. RATIO 2.4 SEE NO TE PROTHROMBIN TIME 27.8 10.1-13.1 PARTIAL THROMBOPLASTIN TIME 2014-08-06 (PTT) PARTIAL THROMBOPLASTIN TIME 44.6 23.6 -37.6 PROFILE, FASTING (COMPREHENSIVE 2014-02-26 METABOLIC) NA 138 135-145 K 3.9 3.3-5.1 CL 105 96-108 CO2 27 22-29 ANION GAP 10 12-20 FASTING BLOOD SUGAR 78 60-99 BUN 18 9-16 CREATININE 0.89 0.5-1.4 ESTIMATED GFR > 60 PROTEIN, TOTAL 6.6 6.5-8.0 ALBUMIN 3.9 3.5-5.0 BILIRUBIN, TOTAL 0.3 0.0-1.0 CALCIUM 8.9 8.4-10.2 ALK. PHOS. 93 39-117 GOT 20 <3-31 GPT 31 <6-31 LIPID PANEL 2014-02-26 CHOLESTEROL 189 TRIGLYCERIDE 519 HDL 25 LDL Test not performed CBC w DIFF 2014-02-26 WBC 8.9 4.8-10.8 ABSOLUTE NEUTROPHIL COUNT 4.4 2.2-7. 9 RBC 4.75 4.20-5.50 HEMOGLOBIN 14.3 12.0-16.0 HEMATOCRIT 41.5 37-47 MCV 87.2 80-98 MCH 30.0 27.0-33.0 MCHC 34.4 31.0-35.0 PLATELET COUNT 227 160-400 RDW 12.8 11.0-16.0 NEUTROPHILS 49.2 45-73 LYMPHOCYTES 43.0 20-40 MONOCYTES 4.3 2-11 EOSINOPHILS 2.1 0-4 BASOPHILS 1.4 0-2 MRI BRAIN NO CONTRAST 2014-01-06 PROFILE, RANDOM (COMPREHENSIVE 2013-10-24 METABOLIC) NA 139 135-145 K 4.6 3.3-5.1 CL 106 96-108 CO2 28 22-29 ANION GAP 10 12-20 GLUCOSE,RANDOM 107 60-115 BUN 17 9-16 CREATININE 0.91 0.5-1.4 ESTIMATED GFR > 60 PROTEIN, TOTAL 6.2 6.5-8.0 ALBUMIN 3.7 3.5-5.0 BILIRUBIN, TOTAL 0.4 0.0-1.0 CALCIUM 9.0 8.4-10.2 ALK. PHOS. 83 39-117 GOT 36 <3-31 GPT 57 <6-31 LIPID PANEL 2013-10-24 CHOLESTEROL 198 TRIGLYCERIDE 668 HDL 25 LDL Test not performed CBC w DIFF 2013-10-24 WBC 7.8 4.8-10.8 ABSOLUTE NEUTROPHIL COUNT 4.1 2.2-7. 9 RBC 4.41 4.20-5.50 HEMOGLOBIN 13.5 12.0-16.0 HEMATOCRIT 39.8 37-47 MCV 90.4 80-98 MCH 30.7 27.0-33.0 MCHC 34.0 31.0-35.0 PLATELET COUNT 206 160-400 RDW 13.3 11.0-16.0 NEUTROPHILS 52.5 45-73 LYMPHOCYTES 35.7 20-40 MONOCYTES 5.3 2-11 EOSINOPHILS 5.1 0-4 BASOPHILS 1.5 0-2 URINALYSIS - CLEAN CATCH (UA) 2013-09-11 COLOR YELLOW APPEARANCE,(UA) CLEAR SPECIFIC GRAVITY 1.020 1.005-1.025 LEUKOCYTES NEG NEG NITRITE NEG NEG PROTEIN,QUALITATIVE NEG NEG - TRACE PH 6.0 5.0-8.0 URINE BLOOD NEG NEG KETONES NEG NEG GLUCOSE NEG NEG URINE CULTURE 2013-09-11 URINE CULTURE RESULT URINE CULTURE >10,000 but <100,000 col/ml URINE CULTURE Multiple organism types; clinical significance unclear URINE CULTURE Please resubmit if indicated. URINE CULTURE URINALYSIS + MICROSCOPIC 2013-08-14 COLOR YELLOW APPEARANCE,(UA) CLOUDY SPECIFIC GRAVITY 1.025 1.005-1.025 LEUKOCYTES 1+ NEG NITRITE NEG NEG PROTEIN,QUALITATIVE NEG NEG - TRACE PH 6.0 5.0-8.0 URINE BLOOD NEG NEG KETONES NEG NEG GLUCOSE NEG NEG MICROSCOPIC WBC 15-29 0-4 MICROSCOPIC RBC 0 0 EPITHELIAL CELLS 3+ BACTERIA 2+ RENAL EPITHELIAL CELLS NONE CASTS NONE MUCUS 3+ PROFILE, FASTING (COMPREHENSIVE 2013-08-14 METABOLIC) NA 139 135-145 K 4.1 3.3-5.1 CL 107 96-108 CO2 24 22-29 ANION GAP 12 12-20 FASTING BLOOD SUGAR 105 60-99 BUN 20 9-16 CREATININE 0.95 0.5-1.4 ESTIMATED GFR > 60 PROTEIN, TOTAL 6.0 6.5-8.0 ALBUMIN 3.7 3.5-5.0 BILIRUBIN, TOTAL 0.3 0.0-1.0 CALCIUM 9.1 8.4-10.2 ALK. PHOS. 83 39-117 GOT 21 <3-31 GPT 37 <6-31 LIPID PANEL 2013-08-14 CHOLESTEROL 209 TRIGLYCERIDE 463 HDL 27 LDL Test not performed CBC w DIFF 2013-08-14 WBC 7.6 4.8-10.8 ABSOLUTE NEUTROPHIL COUNT 4.0 2.2-7. 9 RBC 4.42 4.20-5.50 HEMOGLOBIN 13.8 12.0-16.0 HEMATOCRIT 40.3 37-47 MCV 91.2 80-98 MCH 31.2 27.0-33.0 MCHC 34.3 31.0-35.0 PLATELET COUNT 214 160-400 RDW 13.1 11.0-16.0 NEUTROPHILS 53.1 45-73 LYMPHOCYTES 37.4 20-40 MONOCYTES 4.9 2-11 EOSINOPHILS 3.4 0-4 BASOPHILS 1.1 0-2 Mammogram MAMMOGRAM DIGITAL BILATERAL 2013-04-11 SCREEN PROFILE, FASTING (COMPREHENSIVE 2013-02-18 METABOLIC) NA 139 135-145 K 4.0 3.3-5.1 CL 105 96-108 CO2 23 22-29 ANION GAP 15 12-20 FASTING BLOOD SUGAR 112 60-99 BUN 15 9-16 CREATININE 0.84 0.5-1.4 ESTIMATED GFR > 60 PROTEIN, TOTAL 7.0 6.5-8.0 ALBUMIN 4.0 3.5-5.0 BILIRUBIN, TOTAL 0.6 0.0-1.0 CALCIUM 9.5 8.4-10.2 ALK. PHOS. 84 39-117 GOT 17 <3-31 GPT 24 <6-31 LIPID PANEL 2013-02-18 CHOLESTEROL 235 TRIGLYCERIDE 291 HDL 30 LDL 147 CBC w DIFF 2013-02-18 WBC 9.1 4.8-10.8 ABSOLUTE NEUTROPHIL COUNT 5.2 2.2-7. 9 RBC 4.82 4.20-5.50 HEMOGLOBIN 15.1 12.0-16.0 HEMATOCRIT 45.2 37-47 MCV 93.7 80-98 MCH 31.3 27.0-33.0 MCHC 33.4 31.0-35.0 PLATELET COUNT 312 160-400 RDW 13.4 11.0-16.0 NEUTROPHILS 57.1 45-73 LYMPHOCYTES 35.4 20-40 MONOCYTES 4.4 2-11 EOSINOPHILS 1.9 0-4 BASOPHILS 1.2 0-2 PROFILE, FASTING (COMPREHENSIVE 2012-05-07 METABOLIC) NA 140 135-145 K 3.7 3.3-5.1 CL 108 96-108 CO2 24 22-29 ANION GAP 12 12-20 FASTING BLOOD SUGAR 81 60-99 BUN 8 9-16 CREATININE 0.79 0.5-1.4 ESTIMATED GFR > 60 PROTEIN, TOTAL 7.0 6.5-8.0 ALBUMIN 4.4 3.5-5.0 BILIRUBIN, TOTAL 0.6 0.0-1.0 CALCIUM 9.1 8.4-10.2 ALK. PHOS. 82 39-117 GOT 17 <3-31 GPT 20 <6-31 LIPID PANEL 2012-05-07 CHOLESTEROL 244 TRIGLYCERIDE 234 HDL 39 LDL 159 CBC w DIFF 2012-05-07 WBC 9.9 4.8-10.8 ABSOLUTE NEUTROPHIL COUNT 6.2 2.2-7. 9 RBC 4.57 4.20-5.50 HEMOGLOBIN 13.6 12.0-16.0 HEMATOCRIT 40.6 37-47 MCV 88.7 80-98 MCH 29.8 27.0-33.0 MCHC 33.6 31.0-35.0 PLATELET COUNT 282 160-400 RDW 13.1 11.0-16.0 NEUTROPHILS 63.1 45-73 LYMPHOCYTES 31.1 20-40 MONOCYTES 4.2 2-11 EOSINOPHILS 0.8 0-4 BASOPHILS 0.8 0-2 MAMMOGRAM DIGITAL BILATERAL 2012-03-29 SCREEN SCREENING COLONOSCOPY COLONOSCOPY REASON FOR VISIT Annual Exam, Followup, follow up, Rx request, Lumbar radiculopathy, COPD, Hyperlipidemia, Anxiety disorder with depression, Lymphedema, History of DVT and pulmonary embolism, Hypertension, Tobacco dependence, pt was in ER , Low back pain, Hypertension, Depression, Tobacco dependence, COPD, Hyperlipidemia, Generalized anxiety disorder, History of DVT, refill medication, ? ok to stop Xerelto x 3 days, wants refill on Wixela inhaler, Annual Exam, ePrescription CancelRx response, Rx request, Followup, Low back pain, Sciatica, order for MRI , Upset with pain and no medication, Low back pain, bilateral sciatica pain, lesion on back looks abnormal, Atypical hyperplasia of the breast, Hypertension, Depression, Tobacco dependence, Hyperlipidemia, COPD, History of pulmonary embolism, Lumbar radiculopathy, Followup, Hypertension, Depression, COPD, FYI only, Followup, Depression, Osteopenia, Phaco dependence, Lumbar radiculopathy, History of DVT with pulmonary embolism, Postphlebitic lymphedema, lower ex tremity, Anxiety, COPD, Hyperlipidemia, Annual Exam, sick, Script request, Needs call back from MD, Essential Hypertension, Hyperlipidemia, Leg pain, COPD, Lumbar radiculopathy, Anticoagulated for DVT/PE, Tobacco dependence, Hypertension, cellulitis legs, Lower extremity lymphedema, Hypertension, Depre ssion, Tobacco dependence, History of DVT, Swollen legs, Hypertension, Depression, Hyperlipidemia, Tobacco dependence, Pulmonary embolism, Lumbar radiculopathy, Needs call back from MD, Concern, Left leg pain, hypertension, depression, osteopenia, urinary incontinence, tobacco dependence, hyperlipidemi a, COPD, , lumbar radiculopathy, Left leg pain, hypertension, depression, tobacco dependence, pulmonary embolism, hyperlipidemia, COPD, hypertension, DVT, COPD, osteopenia, hyperlipidemia, chronic pain, COPD, lumbar radiculopathy, pt wants to be referred to eye MD, Left leg pain, DVT, COPD, hypertension, tobacco dependence, hyperlipidemia, labyrinthitis, hypertension, depression, pulmonary embolism, COPD, lumbar radiculopathy, lymphedema, dizziness, Vomitting, Diarrhea, dizziness and unable to eat, Left leg pain, Essential Hypertension, Depression, COPD, depression, urinary incontinence, tobacco dependence, hyperlipidemia, Left leg pain, pain and swelling left lower extremity, hypertension, depression, hyperlipidemia, COPD, anxiety, refill gabapentin, new- onset pain left thigh, bilateral lower extremity edema, history of DVT, COPD, anxiety disorder, hypertension, depression, bilateral lower extremity edema, tobacco dependence, hyperlipidemia, COPD, narcotic addiction, left posterior thigh and buttock pain, bilateral lower extremity edema, weakness, hypertension, depression, bilateral lower extremity edema, hypertension, depression, tobacco dependence, history of pulmonary embolism, hyperlipidemia, COPD, questions for the doctor, edema, DVT, hypertension, COPD, lumbar radiculopathy, hyperlipid emia, tobacco dependence, edema, legs and feet swelling went down, bilateral lower extremity edema, COPD, tobacco dependence, essential hypertension, bilateral lower extremity edema, DVT, hypertension,depression, bilateral lower extremity pitting edema, leg pain, edema, DVT, Anxiety, PTSD, Hypertension, update on feet swelling, lower extremity edema, recent DVT, chronically anticoagulated, essentialhypertension, depression, DVT lower extremity, lower extremity edema, hypertension, depression, tobacco dependence, COPD, DVT lower extremity, essential hypertension, depression, overweight, tobacco dependence, COPD, hyperlipidemia, anticoagulated, DVT right lower extremity, lumbar radiculopathy, COPD, hyperlipidemia, DVT right lower extremity, hypertension, depression, urinary incontinence, tobacco dependence, COPD, lumbar radiculopathy, Annual Exam, DVT right lower extremity, hypertension, COPD, hy perlipidemia, update to see how she is feeling today , ? still wear compression stockings, swollen right leg, substernal discomfort, COPD, essential hypertension, depression, hyperlipidemia, tobacco dependence, history of DVT and pulmonary embolism., wants CXR results from last week, left side rib area , refill on her Lasix RX, Left leg pain, wants meds for feet swelling and inflamation , trouble with Tens stockings, left ankle pain, tarsal tunnel syndrome, lumbar radiculopathy, depression, hypertension, hyperlipidemia, COPD, Left leg pain, hyperlipidemia, cancel appt today 09/02/19, you told her tocall last Sunday, hyperlipidemia, rescheduled appt for today, hyperlipidemia, prescription refill, prescription request, hyperlipidemia, hypertension, depression, tobacco dependence, hyperlipidemia, Psych started on new med, hyperlipidemia, sick with body aches/cough etc, low back pain, hypertension, C OPD, tobacco dependence, knee pain, abdomen pain, abdomen pain, abdomen pain, abdomen pain, copy last progress note, abdomen pain, atypical ductal hyperplasia of the breast, hypertension, depression, tobacco dependence, COPD, opiate addiction , hyperlipidemia, persistent cough, atypical hyperplasia ofthe breast, hypertension, depression, tobacco dependence, history of narcotics addiction, anxiety disorder, coughing, hypertension, cancel appointment, annual exam, verify appt date, cough , cough and congestion for 3 days, req sick ov, trying to get pt to r/s appt. , annual exam, annual exam, cancelled appt for tomorrow, depression, atypical hyperplasia of the breast, hypertension, tobacco dependence , COPD, narcotics addiction, abdominal pain, depression, hyperlipidemia, diabetes mellitus, history of opiate addiction, COPD, PTSD, tobacco dependence, atypical ductal hyperplasia of the breast, hypertension, depression, hyperlipidemia, cancel appt, hyperlipidemia, hyperlipidemia, wants appt with psychiatrist , right flank pain, hypertension, COPD, depression, diabetes, suboxone patient, kidney pain, kidney pain, pt just filled suboxone, bilateral severe flank pain, urinary tract infection, pyelonephritis, abdominal pain, sick with severe cough, abdominal pain, abdominal pain, abdominal pain, HYPERTENSION, HYPERTENSION, need refill, Chart review, CANCEL APPT, atypical ductal hyperplasia of the breast, hypertension, depression, nasal skin lesion, COPD, dictation to opiates, hyperlipidemia, diff swallowing, hypertension, depression, esophageal dysmotility, hyperlipidemia, COPD, diff swallowing , Cancel appt, Cough, appt MERI Babin Nurse boiling house 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 , dysphagia, verified she is off warfarin, pt cancelled appt for UGI, Well being ck, Pneumo Vac, DVT, Returning our call, DVT, Cancel Appt, DVT,Cancellation, DVT, DVT, DVT/PE, path results from D & C done at [facility], pulmonary embolism, DVT, postmenopausal vaginal bleeding, office note medical clearance , having surgery D & C 06/07/2015 at [facility], Having a D/C, vaginal bleeding, anticoagulated, update on how she is feeling, appt with Dr Brown, vaginal bleeding, woke up with vaginal bleeding today, back pain, INR , abdominal pain, Abdominal Pain, INR today of 5.5, Lump left arm pit, cancelled appt for today , back pain, Lipid test from 12/22/2014, back pain, Omeprazole/Troxicam 10mg, hyperlipidemia, osteopenia , venous thromboembolism, thyroid nodule, labs from 09/10/2014, Coumadin Clinic appointment, INR for 09/04/14, INR , deep venousthrombosis, INR, Mammogram, INR from 08/10/14, Dr. Bourne, Wants VNA services again, INR from [facility], Coumadin Clinic, INR, INR, Coumadin Clinic, Refill on Lovenox 80mg, DVT, thyroid nodule,constipation, Refill on Coumadin 2.5mg, INR, cough, Nicorette Gum, Coumadin, INR, INR, Thyroid Nodule Seen on Scan, Tricor, Next INR test, venous thromboembolism, INR, hyperlipdemia, appt for mammogram, needs omeprazole refilled, refill on Omeprazole 20mg, depression, depression, depression, Neurologist appointment, body shakes, Dr. Geneva Rasmussen, hyperlipdemia, Results of Urine Culture, tremors,T depression, Shakes, Urine test from 08/14/2013, hyperlipdemia, Refil on Omeprazole 20mg, hyperlipdemia, RX'D ULTRAM CAN SHE TAKE IT, REFIL ON OMEPRAZOLE 20MG, APT FOR MAMMOGRAM, hyperlipdemia, hyperlipdemia, depression, Historical data abstraction, FX FIBULA, head congestion, not better, DOES SHE HAVE Pertussis, bad cough and head congestion, bad cough and head congestion, hyperlipdemia, hyperlipidemia, hyprlipidemia, Historical data abstraction Insurance Providers [facility] Member Patient Patient Patient Patient Patient Subscriber Subscriber Subscriber Group Insurance Plan Plan Plan Plan ID Relationship Address Phone Name Date of ID Name Date of No Type Insurance Insurance Insurance Coverage to Subscriber Address Phone Name Dates [employer] [phone] [employer] self Catherin [id number] [employer] [address] [facility] [place] [facility] [id number]
--- OUTSIDE RECORDS SUMMARY | 2022-10-30 02:24 | XMS_ITS | Continuity of Care Document ---
:1955 Author Organization [facility] Address [address] [place] [id number]- Care Team Providers Name Role Phone Edilberto LONDONO, Jamie Potter Primary Care Physician [place] [facility] [place] 06/03[place]22 - 06/03/[address] [address]- Discharge Disposition: A-D/C Walkout Attending Physician: Not on Staff, Attending MD Admitting Physician: Not on Staff, Admitting MD Referring Physician: Not on Staff, Referring MD Allergies, Adverse Reactions, Alerts No Known Allergies Immunizations Given and Recorded Vaccine Date Status Refusal Reason pneumococcal 23-valent vaccine 07/16/14 Given influenza virus vaccine, inactivated 08/14/12 Given Pneumococcal Vaccine (oldterm) 11/15/06 Given Influenza Virus Vaccine (oldterm)1 09/08/06 Given 1Admin Note: Pt states she received the flu vaccine this fall from Dr. Shah. Medications clonazePAM 0.5 mg oral tablet 2 tablet = 1 mg, By Mouth, Daily, 0 Refills, Maintenance, 01/23/17 18:01:45, Tablet Start Date: 01/23/17 Status: Orderedfluoxetine 20 mg oral tablet 2 tablet, By Mouth, Daily, # 30 tablet, 0 Refills, Maintenance, 08/13/12 9:43:00, Tablet Start Date: 08/13/12 Status: OrderedMultivitamin Tablet 1 tablet, By Mouth, Daily, 0 Refills, Maintenance, Tablet Start Date: 08/15/12 Status: Orderedomeprazole 20 mg oral enteric coated capsule 1 capsule, By Mouth, Daily, # 30 capsule, 0 Refills, Maintenance, 07/15/14 14:55:30, EC Capsule Start Date: 07/15/14 Status: Orderedpantoprazole 20 mg oral delayed release tablet 20 mg, By Mouth, Daily, # 30 tablet, Refills 3, Tot. 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) Acute pulmonary embolism(Confirmed) Active Reactive airway disease(Confirmed) Active Vital Signs Most recent to oldest [Reference 1 2 3 Range]: Oxygen Saturation [94-100 %] 90 % 93 % 94 % *L* *L* (06/03/22 1:54 PM) (06/03/22 3:04 PM) (06/03/22 2:08 PM) Pulse Rate [55-90 bpm] 106 bpm 94 bpm 121 bpm *H* *H* *H* (06/03/22 3:04 PM) (06/03/22 2:08 PM) (06/03/22 1:54 P M) Blood Pressure [90-138/55-84 mm 112/78 mm Hg 101/79 mm Hg Hg] (06/03/22 3:04 PM) (06/03/22 2:08 PM) Respiratory Rate [16-30 br/min] 16 br/min (06/03/22 2:08 PM) Temperature [96.8-100.4 DegF] 98.1 DegF 98.5 DegF (06/03/22 3:04 PM) (06/03/22 2:08 PM) Mode of Delivery (Oxygen) Room air Room air Room a ir (06/03/22 3:04 PM) (06/03/22 2:08 PM) (06/03/22 1:54 P M) Blood pressure sites Arm, right (06/03/22 3:04 PM) Temperature Route Oral Oral (06/03/22 3:04 PM) (06/03/22 2:08 PM)
[2022-10-30] MEDS: Azithromycin 500 MG TABLET PO (02:50)
[2022-10-30] MEDS: cefTRIAXone sodium 1 GM in 0.9 % Sodium Chloride 50 ML IV (02:50)
[2022-10-30] MEDS: methylPREDNISolone Sod Succ 40 MG/ML VIAL IVPUSH ×2 (03:07→17:55)
--- NOTE | 2022-10-30 04:47 | MHC.EDTECH ---
pt is sleeping , vitals taken, no issues
--- NOTE | 2022-10-30 04:55 | PC.NURSE ---
Took over care at 3:15am. pt reposition for comfort. pt resting with no sign of distress. Will continue to monitor.
--- NOTE | 2022-10-30 06:14 | MHC.EDTECH ---
pt was supervised while she got up to use commode, by the time i went back to get her off she was already back in bed, vitals were taken she is all set, orange juice and gingerale was also given as requested
--- NOTE | 2022-10-30 06:18 | PC.NURSE ---
pt assisted to bedside commode and repositioned for comfort. Call ceja within reach. Will continue to monitor. No sign of distress.
--- NOTE | 2022-10-30 06:47 | PM.IMHP ---
History of Present Illness Date of Service: 10/30/22 Chief Complaint: back pain, abd pain 67-year-old female past medical history of COPD, asthma, depression anxiety, hyperlipidemia, fibromyalgia presents to the hospital with complaints of acute on chronic back pain patient reports that the pain is lower back, radiating to the front of her abdomen, not associated with any urinary symptoms. Reports the pain to be intermittent, 8/10, relieved with pain medications, no exacerbating factors. Patient denies any fever or chills, reports cough, sputum production, as well as dyspnea. reports no fever or chills, has nausea with no vomiting, no diarrhea constipation, no urinary symptoms and no lower extremity edema. On arrival to the ED patient hemodynamically stable except hypotension blood pressure noted to be in the 80s/60s patient labs are significant for WBC count of 30.6, hemoglobin of 17.6, medical 51.6, pH of 7.35, potassium 3.2, labs otherwise unremarkable CT of the abdomen pelvis/chest showed no CT evidence of acute intra-abdominal process to explain patient's pain Cystic structure in the left side of the pelvis adjacent to the iliac vessel measures 3.4 cm Mild infiltrates and subsegmental atelectasis in the lungs with severe pulmonary emphysema A 9 mm spiculated nodular right upper lobe nodule Sclerotic densities in the left pedal cool of L3 and left femoral neck probably bone islands, urinary bladder distension. Patient treated with IV fluids and will be admitted for further management Review of Systems Review of Systems: Yes all other systems are reviewed and are negative [facility] Medical History Arthritis of both knees Asthma Back pain Depression with anxiety High cholesterol History of fibromyalgia Family History Brother Cancer of pancreas Surgical History H/O knee surgery Hx of dilation and curettage Hx of tonsillectomy Social History Alcohol intake: never Patient Tobacco Use Status: Current everyday Tobacco user Cigarettes Per Day: 15 Smoked in Last 30 Days: Yes Use of substances other than those prescribed or required for medical reasons: Yes Substance Use Type: Marijuana Substance Use Frequency: Daily Advance Directives: Yes Advance Directives on File: No Meds Allergies Allergy/AdvReac Type Severity Reaction Status Date / Time No Known Allergies Allergy Verified 08/23/22 14:42 Active Medications: Current Medications Acetaminophen (Acetaminophen 325 Mg Tablet) 650 mg PO Q6H PRN PRN Reason: Pain, Mild (Pain Scale 1-3) Albuterol/Ipratropium (Albuterol/Iprat 2.5/0.5mg 3 Ml Ampul.Neb) 3 ml INHALE RQ4H PRN PRN Reason: Shortness of Breath/Wheezing Albuterol/Ipratropium (Albuterol/Iprat 2.5/0.5mg 3 Ml Ampul.Neb) 3 ml INHALE RQ4H WHILE AWAKE [facility] Azithromycin (Azithromycin 500 Mg Tablet) 500 mg PO DAILY [facility] Last Admin: 10/30/22 02:50 Dose: 500 mg Docusate Sodium (Docusate Sodium 100 Mg Capsule) 100 mg PO DAILY PRN PRN Reason: Constipation Ceftriaxone Sodium 1 gm/ (Sodium Chloride) 50 mls @ 100 mls/hr IV DAILY [facility] Last Infusion: 10/30/22 03:10 Dose: Infused Methylprednisolone Sodium Succinate (Methylprednisolone Sod Succ 40 Mg/Ml Vial) 40 mg IVPUSH 0600,1800 [facility] Last Admin: 10/30/22 03:07 Dose: 40 mg Nystatin (Nystatin Oral Susp 500,000 Unit/5 Ml Oral.Susp) 400,000 unit PO QID [facility]; Protocol Ondansetron HCl (Ondansetron Hcl 4 Mg/2 Ml Vial) 4 mg IVPUSH Q8H PRN PRN Reason: Nausea and Vomiting Pharmacy Consult (Consult Rx Perform Med Rec) 1 each MISCELLANE ONCE PRN PRN Reason: Consult order Sodium Chloride (0.9 % Sodium Chloride Flush 3 Ml Syringe) 3 ml IVFLUSH QSHIFT [facility] Home Medications Medication Instructions Recorded Confirmed Last Taken Type albuterol sulfate 90 mcg/actuation 2 puff inhalation Q6H PRN sob 08/23/22 10/29/22 10/28/22 History aerosol inhaler aripiprazole 2 mg tablet 2 mg PO BID 08/23/22 10/29/22 10/28/22 History atorvastatin 10 mg tablet 10 mg PO DAILY 08/23/22 10/29/22 10/28/22 History clonazepam 1 mg tablet 1 mg PO BID 08/23/22 10/29/22 10/28/22 History fluticasone 250 mcg-salmeterol 50 1 ea inhalation BID 08/23/22 10/29/22 10/28/22 History mcg/dose blistr powdr for inhalation ([facility] [employer]) furosemide 40 mg tablet 40 mg PO BID 08/23/22 10/29/22 10/28/22 History hydroxyzine pamoate 25 mg capsule 25 mg PO TID 08/23/22 08/31/22 Unknown History rivaroxaban 20 mg tablet (Xarelto) 20 mg PO DAILY 08/23/22 10/29/22 10/28/22 History duloxetine 20 mg capsule,delayed 40 mg PO DAILY 08/31/22 10/29/22 10/28/22 History release duloxetine 60 mg capsule,delayed 60 mg PO DAILY 08/31/22 10/29/22 10/28/22 History release gabapentin 300 mg capsule 300 mg PO DAILY 08/31/22 10/29/22 10/28/22 History Physical Exam Vital Signs and Narrative: Vital Signs: Last Vital Signs Temp 98.0 F 10/30/22 06:13 Pulse 83 10/30/22 06:13 Resp 15 10/30/22 06:13 BP 120/66 10/30/22 06:13 Pulse Ox 91 L 10/30/22 06:13 O2 Del Method 10/30/22 06:13 O2 Flow Rate 3 10/30/22 06:13 BMI result Body Mass Index 25.9 Const: General: cooperative and no acute distress Orientation/consciousness: patient oriented x3 Eyes: General: appearance normal, both eyes and all related structures Pupils: Equal, round and reactive pupils present Resp: Other: crackles bilaterally Effort & Inspection: normal respiratory effort Auscultation: clear to auscultation bilaterally Cardio: Rate: regular rate Rhythm: regular rhythm GI: Palpation (GI): Soft to palpation Auscultation: normal bowel sounds : Other: no CVA tenderness Skin: General skin exam: no rashes or lesions noted Neuro: General: patient oriented x3 Cranial nerves: Yes Equal, round and reactive pupils present Cognition (Neuro): normal cognition Extrem: General: Yes normal to inspection and Yes no pedal edema Results Labs CBC and Chem 7: 10/29/22 14:00 10/29/22 14:00 Labs: Laboratory Results - last 24 hr 10/29/22 10/29/22 10/29/22 14:00 14:00 14:00 MCV 88.4 MCH 30.1 MCHC 34.1 RDW 14.0 Plt Count 326 MPV 9.8 Immature Gran % (Auto) 0.6 H Neut % (Auto) 83.0 H Lymph % (Auto) 11.9 L Wells % (Auto) 4.2 Eos % (Auto) 0.1 Baso % (Auto) 0.2 Lymph # (Auto) 3.7 Wells # (Auto) 1.3 H Eos # (Auto) 0.0 Baso # (Auto) 0.1 Abs Immat Gran (auto) 0.18 H Absolute Neuts (auto) 25.4 H Absolute Nucleated RBC 0.000 Nucleated RBC % (auto) 0.0 Smear Tech's Comments VERIFIED VBG pH VBG pCO2 VBG pO2 VBG HCO3 VBG O2 Saturation VBG Base Excess Anion Gap 17 Estim Creat Clear Calc 50.5 Estimated GFR 59 Random Glucose 89 Lactic Acid Calcium 9.6 Magnesium 2.1 Total Bilirubin 1.1 H AST 15 ALT 18 Alkaline Phosphatase 101 Total Protein 7.4 Albumin 4.7 Urine Color Urine Appearance Urine pH Ur Specific [place] Urine Protein Urine Glucose (UA) Urine Ketones Urine Blood Urine Nitrite Ur Leukocyte Esterase Influenza Type A (PCR) NEGATIVE Influenza Type B (PCR) NEGATIVE RSV RNA Qual (PCR) NEGATIVE SARS-CoV-2 RNA (RT-PCR) NEGATIVE S. pyogenes GrpA DEEPTHI 10/29/22 10/29/22 10/29/22 14:00 14:08 16:11 MCV MCH MCHC RDW Plt Count MPV Immature Gran % (Auto) Neut % (Auto) Lymph % (Auto) Wells % (Auto) Eos % (Auto) Baso % (Auto) Lymph # (Auto) Wells # (Auto) Eos # (Auto) Baso # (Auto) Abs Immat Gran (auto) Absolute Neuts (auto) Absolute Nucleated RBC Nucleated RBC % (auto) Smear Tech's Comments VBG pH VBG pCO2 VBG pO2 VBG HCO3 VBG O2 Saturation VBG Base Excess Anion Gap Estim Creat Clear Calc Estimated GFR Random Glucose Lactic Acid 1.3 Calcium Magnesium Total Bilirubin AST ALT Alkaline Phosphatase Total Protein Albumin Urine Color Yellow Urine Appearance Clear Urine pH 7.0 Ur Specific [place] 1.010 Urine Protein Negative Urine Glucose (UA) Negative Urine Ketones Negative Urine Blood Negative Urine Nitrite Negative Ur Leukocyte Esterase Negative Influenza Type A (PCR) Influenza Type B (PCR) RSV RNA Qual (PCR) SARS-CoV-2 RNA (RT-PCR) S. pyogenes GrpA DEEPTHI Negative 10/29/22 10/30/22 20:02 00:13 MCV MCH MCHC RDW Plt Count MPV Immature Gran % (Auto) Neut % (Auto) Lymph % (Auto) Wells % (Auto) Eos % (Auto) Baso % (Auto) Lymph # (Auto) Wells # (Auto) Eos # (Auto) Baso # (Auto) Abs Immat Gran (auto) Absolute Neuts (auto) Absolute Nucleated RBC Nucleated RBC % (auto) Smear Tech's Comments VBG pH 7.35 VBG pCO2 77 VBG pO2 29 VBG HCO3 43 H VBG O2 Saturation 33.0 VBG Base Excess 12.9 Anion Gap Estim Creat Clear Calc Estimated GFR Random Glucose Lactic Acid 1.1 Calcium Magnesium Total Bilirubin AST ALT Alkaline Phosphatase Total Protein Albumin Urine Color Urine Appearance Urine pH Ur Specific [place] Urine Protein Urine Glucose (UA) Urine Ketones Urine Blood Urine Nitrite Ur Leukocyte Esterase Influenza Type A (PCR) Influenza Type B (PCR) RSV RNA Qual (PCR) SARS-CoV-2 RNA (RT-PCR) S. pyogenes GrpA DEEPTHI Imaging Radiologist's Impressions: Impressions Chest X-Ray 10/29/22 14:52 IMPRESSION: Newly developed Patchy nodular opacity projecting over the right upper lobe concerning for possible lung lesion versus patchy infiltrates. Clinical correlation recommended. Follow-up imaging chest x-ray or CT scan in one month recommended. Bilateral subpulmonic pleural effusions. Hyperinflated lung suggest underlying air trapping disease. Abdomen/Pelvis CT 10/29/22 18:30 IMPRESSION: * No CT evidence of acute intra-abdominal process to explain patient's pain symptoms. No kidney stone or hydronephrosis. * Cystic structure in the left side of the pelvis adjacent to the iliac vessels 3.4 cm, could be from left ovarian origin, consider correlation with follow-up pelvic ultrasound. * Mild infiltrates and Subsegmental atelectasis at lower lobes and lingula base, Moderate to severe pulmonary emphysema. * There is 9 mm SPICULATED NODULE RIGHT UPPER LOBE with adjacent scar. Various management parameters for solitary pulmonary nodules are in the literature. According to the UPDATED 2017 Fleischner Society recommendations, the advised follow-up imaging for a single solid nodule measuring 8 mm or greater is: Consider CT, PET/CT, or tissue sampling at 3 months. Reference: Guidelines for Management of Incidental Pulmonary Nodules Detected on CT Images: From the Fleischner Society 2017. * Sclerotic densities in the left pedicle of L3 and left femoral neck, probably bone islands. * Urinary bladder is markedly distended. Consider decompression. (Referring physician staff is being called, to be alerted of the above findings and recommendations.) [facility] Chest CT 10/29/22 18:31 IMPRESSION: * No CT evidence of acute intra-abdominal process to explain patient's pain symptoms. No kidney stone or hydronephrosis. * Cystic structure in the left side of the pelvis adjacent to the iliac vessels 3.4 cm, could be from left ovarian origin, consider correlation with follow-up pelvic ultrasound. * Mild infiltrates and Subsegmental atelectasis at lower lobes and lingula base, Moderate to severe pulmonary emphysema. * There is 9 mm SPICULATED NODULE RIGHT UPPER LOBE with adjacent scar. Various management parameters for solitary pulmonary nodules are in the literature. According to the UPDATED 2017 Fleischner Society recommendations, the advised follow-up imaging for a single solid nodule measuring 8 mm or greater is: Consider CT, PET/CT, or tissue sampling at 3 months. Reference: Guidelines for Management of Incidental Pulmonary Nodules Detected on CT Images: From the Fleischner Society 2017. * Sclerotic densities in the left pedicle of L3 and left femoral neck, probably bone islands. * Urinary bladder is markedly distended. Consider decompression. (Referring physician staff is being called, to be alerted of the above findings and recommendations.) [facility] Assessment and Plan (1) COPD exacerbation: Status: Acute (2) Community acquired pneumonia: Status: Acute (3) Solid nodule of lung greater than 8 mm in diameter: Status: Acute (4) SIRS (systemic inflammatory response syndrome): Status: Acute (5) Ovarian cyst: Status: Acute Plan 67-year-old female with past medical history of COPD presents to the hospital with complaints of acute on chronic back pain, as well as cough, sputum production shortness of breath # hypotension - possibly secondary to acute infection as well as dehydration - likely secondary to pneumonia - infiltrates seen on chest CT - has no leukocytosis no elevated lactic acid - given IV fluids with improvement in her blood pressure - hold antihypertensives # c acte on chronic back pain - bone island seen on CT with no other acute findings - Tylenol p.r.n. # pneumonia - infiltrate seen on CT - likely community-acquired - will treat with IV antibiotics - follow cultures # COPD exacerbation - cough, dyspnea, increased sputum production - underlying infiltrate on chest CT - treat with Solu-Medrol, DuoNeb p.r.n. as well as scheduled # lung nodule - recommended to follow up outpatient # ovarian cyst - pelvic transvaginal ultrasound # hyperlipidemia - continue statin # mood disorder - continue home mood stabilizers DVT prophylaxis Lovenox Time Spent With Patient Time: Total time managing care of this patient today ____ minutes. Quality Stroke Does the patient have a stroke diagnosis?: No VTE Prior VTE?: No VTE Risk Level:: Medical - moderate - high VTE Device Contraindication: Treatment Not Indicated VTE Drug Contraindication: N/A - Med Ordered
[2022-10-30 07:12] LABS: Basophils Percent Auto 0.1 % (0-2); Eosinophils Percent Auto 0.1 % (0-4); Hematocrit 46.1 % (37.0-47.0); Imm Gran Abs Auto 0.15 X10*3/uL (0.00-0.03); Imm Gran Pct Auto 0.6 % (0.0-0.4); Lymphocytes Absolute Auto 1.3 X10*3/uL (1.2-4.9); Lymphocytes Percent Auto 4.8 % (20-40); MANUAL DIFF FLAG SCAN; Mean Corpuscular HGB Conc 32.5 g/dl (31.0-35.0); Mean Corpuscular Hemoglobin 29.9 pg (27.0-33.0); Mean Corpuscular Volume 91.8 fL (80.0-98.0); Mean Platelet Volume 9.8 fL (9.4-12.3); Monocytes Absolute Auto 0.3 X10*3/uL (0.1-1.2); Monocytes Percent Auto 1.2 % (2-11); Neutrophils Absolute Auto 24.4 x10*3/uL (2.0-8.3); Neutrophils Percent Auto 93.2 % (45-73); Platelet Count 244 X10*3/uL (160-400); Red Blood Count 5.02 X10*6/uL (4.20-5.50); Red Cell Distribution Width 14.3 % (11.0-16.0); SCAN SMEAR FLAG 1; White Blood Count 26.2 X10*3/uL (4.8-10.8)
[2022-10-30 07:34] LABS: Anion Gap 12 (12-20); Blood Urea Nitrogen 10 mg/dL (9-16); Calcium 8.2 mg/dL (8.4-10.2); Carbon Dioxide 28 mmol/L (22-29); Chloride 104 mmol/L (96-108); Creatinine Clr Calc Pharmacy 69.7; Estimated Glomerular Filt Rate > 60; Glucose Random 112 mg/dL (60-115); Potassium 3.7 mmol/L (3.3-5.1); Sodium 140 mmol/L (135-145)
[2022-10-30 07:38] LABS: SLIDE REVIEW VERIFIED
[2022-10-30] MEDS: Albuterol/Iprat 2.5/0.5MG 3 ML AMPUL.NEB INHALE ×4 (07:42→20:01)
[2022-10-30] MEDS: 0.9 % Sodium Chloride Flush 3 ML SYRINGE IVFLUSH ×3 (07:52→20:52)
--- NOTE | 2022-10-30 08:56 | PHA.MEDREC ---
Pharmacy Consult ? Medication Reconciliation Pharmacy has reviewed the medication reconciliation completed by Celine. Patient takes gabapentin 2 cap TID instead of 1 at bedtime. Patient no longer taking cefuroxime therefore removed from list. patient reported she does not take the KCl because she has difficulty swallowing them and she does not take trazodone because it make her feel groggy. Janey Villalobos, PharmD
--- NOTE | 2022-10-30 09:27 | PC.NURSE ---
patient is alert, oriented x4. able to make needs known. using bedside commode with 1 assist. call ceja within reach. bed in lowest locked position for safety.
--- NOTE | 2022-10-30 09:42 | MHC.CM.PN ---
CM spoke with Patient at her cell/[phone] and addressed IMM with her (original will be given to Patient and a copy will be placed on the chart). Patient lives alone in an apartment and she uses a cane to assist with mobility. Patient receives [employer] hours/week and home/resume said services is the goal. CM has initiated and will follow for dc planning. Patient received Moderna/Covid vax x4 and her PCP is Dr. Jamie Casanova.
--- NOTE | 2022-10-30 10:36 | PM.EVENT ---
Event Note Date of Service: 10/30/22 Event Note: Seen/examined. A/P per H and P, continue closely monitor. Get pulmonology consult Time Spent With Patient Time: Total time managing care of this patient today ____ minutes.
[2022-10-30] MEDS: Rivaroxaban 20 MG TABLET PO (11:32)
[2022-10-30] MEDS: Atorvastatin Calcium 10 MG TABLET PO (11:32)
[2022-10-30] MEDS: Acetaminophen 325 MG TABLET 650 MG PO ×2 (11:32→18:29)
[2022-10-30] MEDS: Ascorbic Acid 500 MG TABLET PO (11:32)
[2022-10-30] MEDS: Furosemide 40 MG TABLET PO (11:34)
[2022-10-30] MEDS: Cholecalciferol (Vitamin D3) 25 MCG TABLET PO (11:34)
[2022-10-30] MEDS: DULoxetine HCl 60 MG CAPSULE.DR PO (11:34)
[2022-10-30] MEDS: DULoxetine HCl 20 MG CAPSULE.DR 40 MG PO (11:42)
[2022-10-30] MEDS: Cyclobenzaprine HCl 10 MG TABLET PO ×3 (11:43→20:51)
[2022-10-30] MEDS: clonazePAM 1 MG TABLET PO ×2 (11:44→20:51)
[2022-10-30] MEDS: Fluticasone/Vilanterol 100/25 BLST.W.DEV 1 PUFF INHALE (11:44)
[2022-10-30] MEDS: ARIPiprazole 2 MG TABLET PO ×2 (11:45→20:51)
--- NOTE | 2022-10-30 14:23 | PC.NURSE ---
rn to rn report given michelle. pt aware of plan of care for transfer to room 363.
[2022-10-30] MEDS: Gabapentin 300 MG CAPSULE 600 MG PO ×2 (14:39→20:51)
[2022-10-30] MEDS: Morphine Sulfate 2 MG/ML CARTRIDGE IVPUSH ×2 (14:41→20:51)
--- NOTE | 2022-10-30 14:45 | PC.NURSE ---
PT TAKES MEDS WITH APPLESAUCE AND THEN FOLLOWED BY WATER OR JUICE.
[2022-10-30] MEDS: Nystatin Oral Susp 500,000 UNIT/5 ML ORAL.SUSP 400000 UNIT PO (23:37)
[2022-10-31] VITALS (7 sets, daily range): BP systolic 114–131; BP diastolic 56–67; PULSE 79–89; RESP 18–20; TEMP 36.2–37.1; O2SAT 91–94
[2022-10-31] MEDS: Acetaminophen 325 MG TABLET 650 MG PO ×4 (01:05→20:57)
[2022-10-31] MEDS: Morphine Sulfate 2 MG/ML CARTRIDGE IVPUSH ×4 (02:57→23:30)
[2022-10-31] MEDS: Docusate Sodium 100 MG CAPSULE PO (03:02)
[2022-10-31] MEDS: methylPREDNISolone Sod Succ 40 MG/ML VIAL IVPUSH ×2 (05:32→17:27)
[2022-10-31] MEDS: 0.9 % Sodium Chloride Flush 3 ML SYRINGE IVFLUSH ×3 (08:03→23:06)
[2022-10-31] MEDS: cefTRIAXone sodium 1 GM in 0.9 % Sodium Chloride 50 ML IV (08:03)
[2022-10-31] MEDS: DULoxetine HCl 60 MG CAPSULE.DR PO (08:04)
[2022-10-31] MEDS: Ascorbic Acid 500 MG TABLET PO (08:04)
[2022-10-31] MEDS: Rivaroxaban 20 MG TABLET PO (08:05)
[2022-10-31] MEDS: Furosemide 40 MG TABLET PO ×2 (08:05→20:56)
[2022-10-31] MEDS: Azithromycin 500 MG TABLET PO (08:05)
[2022-10-31] MEDS: ARIPiprazole 2 MG TABLET PO ×2 (08:06→20:56)
[2022-10-31] MEDS: Cholecalciferol (Vitamin D3) 25 MCG TABLET PO (08:06)
[2022-10-31] MEDS: Gabapentin 300 MG CAPSULE 600 MG PO ×3 (08:06→20:56)
[2022-10-31] MEDS: DULoxetine HCl 20 MG CAPSULE.DR 40 MG PO (08:07)
[2022-10-31] MEDS: clonazePAM 1 MG TABLET PO ×2 (08:07→20:56)
[2022-10-31] MEDS: Atorvastatin Calcium 10 MG TABLET PO (08:07)
[2022-10-31] MEDS: Cyclobenzaprine HCl 10 MG TABLET PO ×3 (08:07→20:56)
[2022-10-31] MEDS: Nystatin Oral Susp 500,000 UNIT/5 ML ORAL.SUSP 400000 UNIT PO ×4 (08:10→20:56)
[2022-10-31] MEDS: Albuterol/Iprat 2.5/0.5MG 3 ML AMPUL.NEB INHALE ×3 (08:22→15:53)
[2022-10-31] MEDS: Fluticasone/Vilanterol 100/25 BLST.W.DEV 1 PUFF INHALE (08:22)
--- NOTE | 2022-10-31 10:49 | P.PNIM_ITS ---
Subjective Subjective Date of Service: 10/31/22 Interval History: f/u on pna, back pain interval history: feels better, still has some back, this is not new, since june Review of Systems sob, back pain Physical Exam Vital Signs: Vital Signs: Last Vital Signs Temp 97.1 F 10/31/22 08:02 Pulse 89 10/31/22 08:25 Resp 18 10/31/22 08:25 BP 120/62 10/31/22 08:02 Pulse Ox 94 10/31/22 08:02 O2 Del Method 10/31/22 08:02 O2 Flow Rate 2.0 10/31/22 08:02 BMI result Body Mass Index 25.9 Const: Other: General: AO X 3, no acute distress Resp: CTA bilateral CVS: S1,S2,RRR GI: +BS, NT, no distention Skin: No rash Neuro: motor grossly intact Psych: appropriate affect Objective Data Active Medications Acetaminophen (Acetaminophen 325 Mg Tablet) 650 mg PO Q6H PRN PRN Reason: Pain, Mild (Pain Scale 1-3) Last Admin: 10/31/22 08:06 Dose: 650 mg Documented By: NARINDER Albuterol Sulfate (Albuterol Sulfate 90 Mcg 8 Gm Inhaler) 2 puff INHALE Q6H PRN PRN Reason: sob Albuterol/Ipratropium (Albuterol/Iprat 2.5/0.5mg 3 Ml Ampul.Neb) 3 ml INHALE RQ4H PRN PRN Reason: Shortness of Breath/Wheezing Albuterol/Ipratropium (Albuterol/Iprat 2.5/0.5mg 3 Ml Ampul.Neb) 3 ml INHALE RQ4H WHILE AWAKE [facility] Last Admin: 10/31/22 08:22 Dose: 3 ml Documented By: EZRA Aripiprazole (Aripiprazole 2 Mg Tablet) 2 mg PO BID [facility] Last Admin: 10/31/22 08:06 Dose: 2 mg Documented By: NARINDER Ascorbic Acid (Ascorbic Acid 500 Mg Tablet) 500 mg PO DAILY [facility] Last Admin: 10/31/22 08:04 Dose: 500 mg Documented By: NARINDER Atorvastatin Calcium (Atorvastatin Calcium 10 Mg Tablet) 10 mg PO DAILY [facility] Last Admin: 10/31/22 08:07 Dose: 10 mg Documented By: NARINDER Azithromycin (Azithromycin 500 Mg Tablet) 500 mg PO DAILY [facility] Last Admin: 10/31/22 08:05 Dose: 500 mg Documented By: NARINDER Clonazepam (Clonazepam 1 Mg Tablet) 1 mg PO BID [facility] Last Admin: 10/31/22 08:07 Dose: 1 mg Documented By: NARINDER Cyclobenzaprine HCl (Cyclobenzaprine Hcl 10 Mg Tablet) 10 mg PO TID [facility] Last Admin: 10/31/22 08:07 Dose: 10 mg Documented By: NARINDER Docusate Sodium (Docusate Sodium 100 Mg Capsule) 100 mg PO DAILY PRN PRN Reason: Constipation Last Admin: 10/31/22 03:02 Dose: 100 mg Documented By: NEDA Duloxetine HCl (Duloxetine Hcl 20 Mg Capsule.) 40 mg PO DAILY [facility] Last Admin: 10/31/22 08:07 Dose: 40 mg Documented By: NARINDER Duloxetine HCl (Duloxetine Hcl 60 Mg Capsule.) 60 mg PO DAILY [facility] Last Admin: 10/31/22 08:04 Dose: 60 mg Documented By: NARINDER Fluticasone/Vilanterol (Fluticasone/Vilanterol 100/25 Blst.W.Dev) 1 puff INHALE RDAILY [facility] Last Admin: 10/31/22 08:22 Dose: 1 puff Documented By: EZRA Furosemide (Furosemide 40 Mg Tablet) 40 mg PO BID [facility]; Protocol Last Admin: 10/31/22 08:05 Dose: 40 mg Documented By: NARINDER Gabapentin (Gabapentin 300 Mg Capsule) 600 mg PO TID [facility] Last Admin: 10/31/22 08:06 Dose: 600 mg Documented By: NARINDER Ceftriaxone Sodium 1 gm/ (Sodium Chloride) 50 mls @ 100 mls/hr IV DAILY [facility] Last Infusion: 10/31/22 08:33 Dose: 0 mls/hr Documented By: NARINDER Methylprednisolone Sodium Succinate (Methylprednisolone Sod Succ 40 Mg/Ml Vial) 40 mg IVPUSH 0600,1800 [facility] Last Admin: 10/31/22 05:32 Dose: 40 mg Documented By: NEDA Morphine Sulfate (Morphine Sulfate 2 Mg/Ml Cartridge) 2 mg IVPUSH Q6H PRN; Protocol PRN Reason: Pain, Severe (Pain Scale 7-10) Last Admin: 10/31/22 10:18 Dose: 2 mg Documented By: NARINDER Nystatin (Nystatin Oral Susp 500,000 Unit/5 Ml Oral.Susp) 400,000 unit PO QID [facility]; Protocol Last Admin: 10/31/22 08:10 Dose: 400,000 unit Documented By: NARINDER Ondansetron HCl (Ondansetron Hcl 4 Mg/2 Ml Vial) 4 mg IVPUSH Q8H PRN PRN Reason: Nausea and Vomiting Pharmacy Consult (Consult Rx Perform Med Rec) 1 each MISCELLANE ONCE PRN PRN Reason: Consult order Rivaroxaban (Rivaroxaban 20 Mg Tablet) 20 mg PO DAILY [facility] Last Admin: 10/31/22 08:05 Dose: 20 mg Documented By: NARINDER Sodium Chloride (0.9 % Sodium Chloride Flush 3 Ml Syringe) 3 ml IVFLUSH QSHIFT [facility] Last Admin: 10/31/22 08:03 Dose: 3 ml Documented By: NARINDER Vitamin D (Cholecalciferol (Vitamin D3) 25 Mcg Tablet) 25 mcg PO DAILY [facility] Last Admin: 10/31/22 08:06 Dose: 25 mcg Documented By: NARINDER Labs CBC & Chem 7: 10/30/22 06:02 10/30/22 06:02 Microbiology Microbiology Results: Microbiology 10/29/22 16:11 Blood Culture - Preliminary Blood - Venous No growth after 24 hours. 10/29/22 16:11 Blood Culture - Preliminary Blood - Venous No growth after 24 hours. Assessment and Plan (1) Ovarian cyst: Status: Acute (2) Community acquired pneumonia: Status: Acute (3) Solid nodule of lung greater than 8 mm in diameter: Status: Acute Plan 67-year-old female with past medical history of COPD presents to the hospital with complaints of acute on chronic back pain, as well as cough, sputum production shortness of breath # hypotension--resolved, not attributed to sepsis # acute on chronic back pain - bone island seen on CT with no other acute findings - Tylenol p.r.n. # pneumonia - infiltrate seen on CT -clinically responding to treatment -Ceftr+Azithro # COPD exacerbation-improving - cough, dyspnea, increased sputum production - underlying infiltrate on chest CT - treat with Solu-Medrol, DuoNeb p.r.n. as well as scheduled # lung nodule - recommended to follow up outpatient # ovarian cyst - pelvic transvaginal ultrasound # hyperlipidemia - continue statin # mood disorder - continue home mood stabilizers DVT prophylaxis Lovenox need for inpatient: IV Abx for PNA Time Spent With Patient Time: Total time managing care of this patient today ____ minutes. Quality Stroke Does the patient have a stroke diagnosis?: No VTE Prior VTE?: No VTE Risk Level:: Medical - moderate - high VTE Device Contraindication: Treatment Not Indicated VTE Drug Contraindication: N/A - Med Ordered
[2022-11-01 03:13] VITALS: BP 135/78; PULSE 90; RESP 20; TEMP 36.4; O2SAT 93
[2022-11-01] MEDS: Calcium Carbonate 750 MG TAB.CHEW PO (05:46)
[2022-11-01] MEDS: methylPREDNISolone Sod Succ 40 MG/ML VIAL IVPUSH (05:46)
[2022-11-01] MEDS: Morphine Sulfate 2 MG/ML CARTRIDGE IVPUSH ×2 (05:46→14:41)
[2022-11-01 07:34] VITALS: PULSE 94; RESP 22; O2SAT 87
[2022-11-01] MEDS: Fluticasone/Vilanterol 100/25 BLST.W.DEV 1 PUFF INHALE (07:34)
[2022-11-01 08:00] VITALS: BP 123/66; PULSE 78; RESP 18; TEMP 37.3; O2SAT 92
[2022-11-01] MEDS: Rivaroxaban 20 MG TABLET PO (09:21)
[2022-11-01] MEDS: Cyclobenzaprine HCl 10 MG TABLET PO ×2 (09:21→14:31)
[2022-11-01] MEDS: DULoxetine HCl 20 MG CAPSULE.DR 40 MG PO (09:21)
[2022-11-01] MEDS: clonazePAM 1 MG TABLET PO (09:21)
[2022-11-01] MEDS: Atorvastatin Calcium 10 MG TABLET PO (09:22)
[2022-11-01] MEDS: ARIPiprazole 2 MG TABLET PO (09:22)
[2022-11-01] MEDS: Furosemide 40 MG TABLET PO (09:22)
[2022-11-01] MEDS: DULoxetine HCl 60 MG CAPSULE.DR PO (09:22)
[2022-11-01] MEDS: Azithromycin 500 MG TABLET PO (09:22)
[2022-11-01] MEDS: Cholecalciferol (Vitamin D3) 25 MCG TABLET PO (09:22)
[2022-11-01] MEDS: Gabapentin 300 MG CAPSULE 600 MG PO ×2 (09:22→14:31)
[2022-11-01] MEDS: cefTRIAXone sodium 1 GM in 0.9 % Sodium Chloride 50 ML IV (09:23)
[2022-11-01] MEDS: 0.9 % Sodium Chloride Flush 3 ML SYRINGE IVFLUSH (09:23)
[2022-11-01] MEDS: Nystatin Oral Susp 500,000 UNIT/5 ML ORAL.SUSP 400000 UNIT PO ×2 (09:37→14:32)
--- NOTE | 2022-11-01 10:20 | PM.DS ---
DS: Providers Provider Date of Service: 11/01/22 Date of admission: 10/30/22 02:08 Primary care physician: Jamie Casanova MD DS: Diagnosis Discharge Diagnosis (1) Ovarian cyst: Status: Acute (2) Community acquired pneumonia: Status: Acute (3) Solid nodule of lung greater than 8 mm in diameter: Status: Acute DS: Summary Hospital Course Hospital Course: Chief Complaint: back pain, abd pain ?67-year-old female past medical history of COPD, asthma, depression anxiety, hyperlipidemia, fibromyalgia presents to the hospital with complaints of acute on chronic back pain patient reports that the pain is lower back, radiating to the front of her abdomen, not associated with any urinary symptoms.? Reports the pain to be intermittent, 8/10, relieved with pain medications, no exacerbating factors.? Patient denies any fever or chills, reports cough, sputum production, as well as dyspnea.? reports no fever or chills, has nausea with no vomiting, no diarrhea constipation, no urinary symptoms and no lower extremity edema.? On arrival to the ED patient hemodynamically stable except hypotension blood pressure noted to be in the 80s/60s ?patient labs are significant for WBC count of 30.6, hemoglobin of 17.6, medical 51.6, pH of 7.35, potassium 3.2, labs otherwise unremarkable CT of the abdomen pelvis/chest showed no CT evidence of acute intra-abdominal process to explain patient's pain Cystic structure in the left side of the pelvis adjacent to the iliac vessel measures 3.4 cm Mild infiltrates and subsegmental atelectasis in the lungs with severe pulmonary emphysema A 9 mm spiculated nodular right upper lobe nodule Sclerotic densities in the left pedal cool of L3 and left? femoral neck probably bone islands, urinary bladder distension.? Patient treated with IV fluids and will be admitted for further management Hospital course She presented with hypotension but was not attributed to sepsis but probably dehydraation and resolved promptly with IV fluid. ? #? Acute on chronic? back pain-? bone island seen on CT with no other acute findings and to follow up on outptient basis #? pneumonia As seen on CT--has been treated with IV ceftriaoxone and Azithromycin and clinically is feeling much better, no sob. WBC initially 30 K is trending down to 18 now, and in part due to steroid. to complet couse of Ceftin and azitho #? COPD exacerbation-exacerbation due to above, treated with IV steroid, bronchodilators by Neb and will treat for 3 more days of Prednisone. She qualifies for home O2 for COPD with hypoxia and will on O2 at 2 liters #? lung nodule -? recommended to follow up outpatient #? ovarian cyst -?[employer] The right ovary was not identified. No right adnexal masses appreciated..? The left ovary measures 4.4 x 2.5 x 3.5 cm in size with a volume of 19.5 mL. There is a 2.8 x 2.7 x 2.4 cm cyst present with no intramural nodule or intravascular flow identified and with good through sound transmission with smooth back wall. No suspicious left adnexal mass appreciated. Seen by Dr. Weathers and will follow up on outpatient basis There is no pelvic ascites or fluid collection. #? hyperlipidemia -? continue statin #? mood disorder -? continue home mood stabilizers Time Spent with Patient Time attestation: Total time managing care of this patient today ____ minutes. Discharge coordination time: Greater than 30 minutes Quality: Safe Use of Opioids Does Pt have an Active Cancer Diagnosis on the Problem List?: No Quality: Stroke Does the patient have a stroke diagnosis?: No Physical Exam Vital Signs: Vital Signs: Last Vital Signs Temp 99.1 F 11/01/22 08:00 Pulse 78 11/01/22 08:00 Resp 18 11/01/22 08:00 BP 123/66 11/01/22 08:00 Pulse Ox 92 11/01/22 08:00 O2 Del Method 11/01/22 08:00 O2 Flow Rate 2.5 11/01/22 08:00 BMI result Body Mass Index 25.9 DS: Data Data Completed and Pending Labs on day of discharge: Preliminary micro results at discharge 10/29/22 16:11 Blood Culture - Preliminary Blood - Venous No growth after 48 hours. 10/29/22 16:11 Blood Culture - Preliminary Blood - Venous No growth after 48 hours. Discharge Plan Discharge Anticipated Discharge Date/Time: 11/01/22 10:34 Patient Disposition: Home Health Service Discharge Diagnosis: Pneumonia, Back pain, COPD exacerbation Referrals: Jamie Casanova MD [Primary Care Provider] - 1 Week Discharge Medications: New cefuroxime axetil 500 mg tablet 500 mg PO BID 7 Days Qty: 14 0RF nystatin 100,000 unit/mL Suspension 400,000 unit PO QID Qty: 250 0RF Protocol: Apply to: Apply to: swish and swallow azithromycin 500 mg Tablet 500 mg PO DAILY Qty: 2 0RF prednisone 20 mg tablet 40 mg PO DAILY Qty: 6 0RF Continued cyclobenzaprine 10 mg tablet 10 mg PO Q8H Qty: 14 0RF prednisone 20 mg tablet 40 mg PO DAILY 5 Days Qty: 10 0RF ascorbic acid (vitamin C) 500 mg Tablet 500 mg PO DAILY cholecalciferol (vitamin D3) 25 mcg (1,000 unit) Tablet 25 mcg PO DAILY duloxetine 60 mg capsule,delayed release(DR/EC) 60 mg PO DAILY atorvastatin 10 mg tablet 10 mg PO DAILY clonazepam 1 mg tablet 1 mg PO BID albuterol sulfate 90 mcg/actuation HFA aerosol inhaler 2 puff inhalation Q6H PRN (Reason: sob) fluticasone propion-salmeterol [Wixela Inhub] 250-50 mcg/dose blister with device 1 ea inhalation BID furosemide 40 mg tablet 40 mg PO BID aripiprazole 2 mg tablet 2 mg PO BID Xarelto 20 mg tablet 20 mg PO DAILY duloxetine 20 mg capsule,delayed release(DR/EC) 40 mg PO DAILY gabapentin 300 mg capsule 600 mg PO TID Discharge Orders: Discharge Order (Routine); Ordered 11/01/22 Ordered By: Tung Humphrey Diet: Advance to usual diet Activity on Discharge: As tolerated Stand Alone Forms: Patient Portal Discharge page Care Plan Goals: recovery from pneumonia Health Concerns: lung nodule that will need follow up Plan of Treatment: take Ceftin for pneumonia take Prednisone for COPD, continue your inhalers Use oxygen as directed Assessment: as above
[2022-11-01 10:46] LABS: Hematocrit 44.6 % (37.0-47.0); Hemoglobin 15.2 g/dl (12.0-16.0); Mean Corpuscular HGB Conc 34.1 g/dl (31.0-35.0); Mean Corpuscular Hemoglobin 29.6 pg (27.0-33.0); Mean Corpuscular Volume 86.8 fL (80.0-98.0); Mean Platelet Volume 9.9 fL (9.4-12.3); Platelet Count 323 X10*3/uL (160-400); Red Blood Count 5.14 X10*6/uL (4.20-5.50); Red Cell Distribution Width 13.4 % (11.0-16.0); White Blood Count 22.4 X10*3/uL (4.8-10.8)
[2022-11-01 11:41] VITALS: PULSE 89; RESP 18; O2SAT 93
[2022-11-01 12:15] VITALS: PULSE 101; PULSE 118; PULSE 120; O2SAT 87; O2SAT 91; O2SAT 92
--- NOTE | 2022-11-01 12:28 | PM.CNPUL ---
History of Present Illness History of Present Illness Consult date: 11/01/22 Chief complaint: Pneumonia, Back Pain Narrative: This is an inpatient pulmonary consultation. The patient is a 67-year-old female past medical history of COPD, asthma, depression anxiety, hyperlipidemia, fibromyalgia presents to the hospital with complaints of acute on chronic back pain patient reports that the pain is lower back, radiating to the front of her abdomen, not associated with any urinary symptoms.? Reports the pain to be intermittent, 8/10, relieved with pain medications, no exacerbating factors.? Patient denies any fever or chills, reports cough, sputum production, as well as dyspnea.? reports no fever or chills, has nausea with no vomiting, no diarrhea constipation, no urinary symptoms and no lower extremity edema.? On arrival to the ED patient hemodynamically stable except hypotension blood pressure noted to be in the 80s/60s ?patient labs are significant for WBC count of 30.6, hemoglobin of 17.6, medical 51.6, pH of 7.35, potassium 3.2, labs otherwise unremarkable CT of the chest personally reviewed by me. Mild infiltrates and subsegmental atelectasis in the lungs with severe pulmonary emphysema A 9 mm spiculated nodular right upper lobe nodule. The patient is doing better, but will need oxygen supplementation. Review of Systems Constitutional: Constitutional: Denies fever(s) and Denies headache(s) Eyes: Eyes: Denies blurry vision and Denies itchy eyes ENT: Denies headache(s) Cardiovascular: Cardiovascular: Denies chest pain and Reports dyspnea on exertion Respiratory: Respiratory: Reports cough and Reports dyspnea on exertion Gastrointestinal: Gastrointestinal: Reports abdominal pain Musculoskeletal: Musculoskeletal: Reports no additional musculoskeletal complaints Neurologic: Denies headache(s) Endocrine: Endocrine: Denies flushing Hematologic/Lymphatic: Hematologic/Lymphatic: Denies easy bleeding and Denies easy bruising Allergic/Immunologic: Allergic/Immunologic: Denies itchy eyes PMFSH Past Medical History Medical History Arthritis of both knees Asthma Back pain Depression with anxiety High cholesterol History of fibromyalgia Family History Family History Brother Cancer of pancreas Surgical History Surgical History H/O knee surgery Hx of dilation and curettage Hx of tonsillectomy Social History Social History Household Members: None Housing: Apartment Do you presently have visiting nurse or other home services: Yes ([employer]) Alcohol intake: never Patient Tobacco Use Status: Current everyday Tobacco user Tobacco use type: Cigarette Cigarette Packs Per Day: 0.5 Cigarettes Per Day: 10.0 Years Smoked: 54 Substance Use Type: Marijuana Advance Directives Date on File: 10/30/22 service: No Current occupational status: disabled Meds Allergies Allergy/AdvReac Type Severity Reaction Status Date / Time No Known Allergies Allergy Verified 08/23/22 14:42 Active Medications: Current Medications Acetaminophen (Acetaminophen 325 Mg Tablet) 650 mg PO Q6H PRN PRN Reason: Pain, Mild (Pain Scale 1-3) Last Admin: 10/31/22 20:57 Dose: 650 mg Albuterol Sulfate (Albuterol Sulfate 90 Mcg 8 Gm Inhaler) 2 puff INHALE Q6H PRN PRN Reason: sob Albuterol/Ipratropium (Albuterol/Iprat 2.5/0.5mg 3 Ml Ampul.Neb) 3 ml INHALE RQ4H PRN PRN Reason: Shortness of Breath/Wheezing Aripiprazole (Aripiprazole 2 Mg Tablet) 2 mg PO BID [facility] Last Admin: 11/01/22 09:22 Dose: 2 mg Ascorbic Acid (Ascorbic Acid 500 Mg Tablet) 500 mg PO DAILY [facility] Last Admin: 11/01/22 09:25 Dose: Not Given Atorvastatin Calcium (Atorvastatin Calcium 10 Mg Tablet) 10 mg PO DAILY [facility] Last Admin: 11/01/22 09:22 Dose: 10 mg Azithromycin (Azithromycin 500 Mg Tablet) 500 mg PO DAILY [facility] Last Admin: 11/01/22 09:22 Dose: 500 mg Clonazepam (Clonazepam 1 Mg Tablet) 1 mg PO BID [facility] Last Admin: 11/01/22 09:21 Dose: 1 mg Albuterol Sulfate 2.5 mg/ (Ipratropium Cisco 0.5 mg) 0 mg INHALE RQ4H WHILE AWAKE [facility] Last Admin: 11/01/22 11:39 Dose: 2.5 each Cyclobenzaprine HCl (Cyclobenzaprine Hcl 10 Mg Tablet) 10 mg PO TID [facility] Last Admin: 11/01/22 09:21 Dose: 10 mg Docusate Sodium (Docusate Sodium 100 Mg Capsule) 100 mg PO DAILY PRN PRN Reason: Constipation Last Admin: 10/31/22 03:02 Dose: 100 mg Duloxetine HCl (Duloxetine Hcl 20 Mg Capsule.Dr) 40 mg PO DAILY [facility] Last Admin: 11/01/22 09:21 Dose: 40 mg Duloxetine HCl (Duloxetine Hcl 60 Mg Capsule.Dr) 60 mg PO DAILY [facility] Last Admin: 11/01/22 09:22 Dose: 60 mg Fluticasone/Vilanterol (Fluticasone/Vilanterol 100/25 Blst.W.Dev) 1 puff INHALE RDAILY [facility] Last Admin: 11/01/22 07:34 Dose: 1 puff Furosemide (Furosemide 40 Mg Tablet) 40 mg PO BID [facility]; Protocol Last Admin: 11/01/22 09:22 Dose: 40 mg Gabapentin (Gabapentin 300 Mg Capsule) 600 mg PO TID [facility] Last Admin: 11/01/22 09:22 Dose: 600 mg Ceftriaxone Sodium 1 gm/ (Sodium Chloride) 50 mls @ 100 mls/hr IV DAILY [facility] Last Infusion: 11/01/22 10:11 Dose: Infused Methylprednisolone Sodium Succinate (Methylprednisolone Sod Succ 40 Mg/Ml Vial) 40 mg IVPUSH 0600,1800 [facility] Last Admin: 11/01/22 05:46 Dose: 40 mg Morphine Sulfate (Morphine Sulfate 2 Mg/Ml Cartridge) 2 mg IVPUSH Q6H PRN; Protocol PRN Reason: Pain, Severe (Pain Scale 7-10) Last Admin: 11/01/22 05:46 Dose: 2 mg Nystatin (Nystatin Oral Susp 500,000 Unit/5 Ml Oral.Susp) 400,000 unit PO QID [facility]; Protocol Last Admin: 11/01/22 09:37 Dose: 400,000 unit Ondansetron HCl (Ondansetron Hcl 4 Mg/2 Ml Vial) 4 mg IVPUSH Q8H PRN PRN Reason: Nausea and Vomiting Pharmacy Consult (Consult Rx Perform Med Rec) 1 each MISCELLANE ONCE PRN PRN Reason: Consult order Rivaroxaban (Rivaroxaban 20 Mg Tablet) 20 mg PO DAILY [facility] Last Admin: 11/01/22 09:21 Dose: 20 mg Sodium Chloride (0.9 % Sodium Chloride Flush 3 Ml Syringe) 3 ml IVFLUSH QSHIFT [facility] Last Admin: 11/01/22 09:23 Dose: 3 ml Vitamin D (Cholecalciferol (Vitamin D3) 25 Mcg Tablet) 25 mcg PO DAILY [facility] Last Admin: 11/01/22 09:22 Dose: 25 mcg Home Medications Medication Instructions Recorded Confirmed Last Taken Type albuterol sulfate 90 mcg/actuation 2 puff inhalation Q6H PRN sob 08/23/22 10/29/22 10/28/22 History aerosol inhaler aripiprazole 2 mg tablet 2 mg PO BID 08/23/22 10/29/22 10/28/22 History atorvastatin 10 mg tablet 10 mg PO DAILY 08/23/22 10/29/22 10/28/22 History clonazepam 1 mg tablet 1 mg PO BID 08/23/22 10/29/22 10/28/22 History fluticasone 250 mcg-salmeterol 50 1 ea inhalation BID 08/23/22 10/29/22 10/28/22 History mcg/dose blistr powdr for inhalation (Ollieela Inhub) furosemide 40 mg tablet 40 mg PO BID 08/23/22 10/29/22 10/28/22 History rivaroxaban 20 mg tablet (Xarelto) 20 mg PO DAILY 08/23/22 10/29/22 10/28/22 History duloxetine 20 mg capsule,delayed 40 mg PO DAILY 08/31/22 10/29/22 10/28/22 History release duloxetine 60 mg capsule,delayed 60 mg PO DAILY 08/31/22 10/29/22 10/28/22 History release gabapentin 300 mg capsule 600 mg PO TID 08/31/22 10/30/22 10/28/22 History ascorbic acid (vitamin C) 500 mg 500 mg PO DAILY 10/30/22 10/30/22 Unknown History tablet cholecalciferol (vitamin D3) 25 25 mcg PO DAILY 10/30/22 10/30/22 Unknown History mcg (1,000 unit) tablet Physical Exam Vital Signs: Vital Signs: Last Vital Signs Temp 99.1 F 11/01/22 08:00 Pulse 89 11/01/22 11:41 Resp 18 11/01/22 11:41 BP 123/66 11/01/22 08:00 Pulse Ox 92 11/01/22 08:00 O2 Del Method 11/01/22 08:00 O2 Flow Rate 2.5 11/01/22 08:00 BMI result Body Mass Index 25.9 Const: Other: General: AO X 3, no acute distress Resp: CTA bilateral CVS: S1,S2,RRR GI: +BS, NT, no distention Skin: No rash Neuro: motor grossly intact Psych: appropriate affect Results Laboratory Findings CBC and BMP: 11/01/22 10:37 10/30/22 06:02 Abnormal lab findings: Abnormal Labs 10/29/22 10/29/22 10/29/22 14:00 14:00 20:02 WBC 30.6 H* RBC 5.84 H Hgb 17.6 H Hct 51.6 H Immature Gran % (Auto) 0.6 H Neut % (Auto) 83.0 H Lymph % (Auto) 11.9 L [place] % (Auto) [place] # (Auto) 1.3 H Abs Immat Gran (auto) 0.18 H Absolute Neuts (auto) 25.4 H VBG HCO3 43 H Potassium 3.2 L Chloride 90 L Carbon Dioxide 33 H Calcium Total Bilirubin 1.1 H 10/30/22 10/30/22 11/01/22 06:02 06:02 10:37 WBC 26.2 H 22.4 H RBC Hgb Hct Immature Gran % (Auto) 0.6 H Neut % (Auto) 93.2 H Lymph % (Auto) 4.8 L [place] % (Auto) 1.2 L [place] # (Auto) Abs Immat Gran (auto) 0.15 H Absolute Neuts (auto) 24.4 H VBG HCO3 Potassium Chloride Carbon Dioxide Calcium 8.2 L D Total Bilirubin Microbiology: Microbiology 10/29/22 16:11 Blood - Venous Blood Culture - Preliminary No growth after 48 hours. 10/29/22 16:11 Blood - Venous Blood Culture - Preliminary No growth after 48 hours. Assessment and Plan (1) COPD exacerbation: Status: Acute (2) Community acquired pneumonia: Status: Acute (3) Solid nodule of lung greater than 8 mm in diameter: Status: Acute Plan Prednisone taper continue Advair Walking oximetry to assess oxygen need Will have a follow up pulmonary to address pulmonary nodule Time Spent With Patient Time: Total time managing care of this patient today ____ minutes. Procedures Date of Service Date of Service: 11/01/22
[2022-11-01 15:26] VITALS: BP 135/94; PULSE 96; RESP 17; TEMP 36.6; O2SAT 95
== END 2022-11-01 16:28 | disposition home health service (06) | DRG 194 ==
LOC: HO.ED 20:57 → HO.EDOVER 10-30 02:21 → HO.S3 10-30 14:15
PROVIDERS: Physician Assistant; Physician Assistant Medical; Admitting Provider Internal Medicine; Emergency Provider Internal Medicine; PCP Internal Medicine Medical Oncology; Visit Provider Internal Medicine
DX: J18.9 Pneumonia, unspecified organism (principal); B37.0 Candidal stomatitis; R65.10 Systemic inflammatory response syndrome (SIRS) of non-infectious origin without acute organ dysfunction; I95.9 Hypotension, unspecified; R91.1 Solitary pulmonary nodule; J43.9 Emphysema, unspecified; E78.5 Hyperlipidemia, unspecified; E86.0 Dehydration; F41.8 Other specified anxiety disorders; N83.202 Unspecified ovarian cyst, left side; M79.7 Fibromyalgia; F17.210 Nicotine dependence, cigarettes, uncomplicated; Z20.822 Contact with and (suspected) exposure to COVID-19; Z86.718 Personal history of other venous thrombosis and embolism; Z71.6 Tobacco abuse counseling; Z79.01 Long term (current) use of anticoagulants; Z79.51 Long term (current) use of inhaled steroids; Z79.52 Long term (current) use of systemic steroids; Z79.899 Other long term (current) drug therapy
CPT/HCPCS: 0241U; 36415; 71046; 71260; 74177; 76856; 80048; 80053; 81003; 82803; 83605; 83735; 85025; 85027; 87040; 87651; 93005; 94640; 99285; J0696; J1170; J2270; J2405; J2543; J2920; Q9967

== ENCOUNTER 2022-11-13 20:39 | Inpatient (IN) | payer OTHER, SELFPAY ==
[2022-11-13] VITALS (7 sets, daily range): BP systolic 92–117; BP diastolic 61–72; PULSE 90–107; RESP 15–24; TEMP 36.7–37.1; O2SAT 6–94; BMI 24.0
--- NOTE | ~2022-11-13 | XR_ITS ---
EXAMINATION: XR CHEST CLINICAL INFORMATION: Pneumonia COMPARISON: 10/29/2022 TECHNIQUE: Frontal view of the chest was obtained. FINDINGS: Lung volumes are low. Streaky opacities are seen at the left base. Bronchial wall thickening. No pleural effusion. No pneumothorax. The cardiomediastinal silhouette is unchanged. XR/XR chest 1V IMPRESSION: Bronchial wall thickening can be seen with a small airways process such as asthma or atypical/viral infection. Left basilar opacity could represent superimposed atelectasis or pneumonia.
--- NOTE | 2022-11-13 21:28 | ED.URI ---
HPI - URI/Sore Throat General Chief Complaint: Upper Respiratory Symptoms Stated Complaint: sob,asthma Time Seen by Provider: 11/13/22 21:18 Source: patient Mode of arrival: EMS Limitations: no limitations History of Present Illness HPI Narrative: Patient comes to the emergency room complaining of worsening shortness of breath. Patient was discharged from this hospital 12 days ago for pneumonia and COPD. Patient states that she never fully recovered since her discharge in her breathing keeps gradually getting worse. When patient was discharged, she qualified for home oxygen 2 L. patient was discharged with an oxygen tank. Also, patient finished a course of Ceftin and azithromycin at home. The states that the company that delivers the oxygen concentrator at home, arrived at the patient's residence, however the oxygen concentrator could not fit through the door of the patient's house, and they left. The requested more oxygen tanks but the company that was supposed to deliver the concentrator left without leaving additional oxygen tanks and never returned. Patient has been without oxygen all day. The patient's reports that the patient has been confused in an out all day. Therefore, he brought the patient to the emergency room On arrival, patient's oxygen saturation was 77 % on room air, improved to 89% on 5 L, patient was switched to an OxyMask, saturating in the low 90s at 7 L of oxygen Related Data Home Medications Medication Instructions Recorded Confirmed albuterol sulfate 90 mcg/actuation 2 puff inhalation Q6H PRN sob 08/23/22 11/13/22 aerosol inhaler aripiprazole 2 mg tablet 2 mg PO BID 08/23/22 11/13/22 atorvastatin 10 mg tablet 10 mg PO DAILY 08/23/22 11/13/22 clonazepam 1 mg tablet 1 mg PO BID 08/23/22 11/13/22 fluticasone 250 mcg-salmeterol 50 1 ea inhalation BID 08/23/22 11/13/22 mcg/dose blistr powdr for inhalation (Alvin Pires) furosemide 40 mg tablet 40 mg PO BID 08/23/22 11/13/22 rivaroxaban 20 mg tablet (Xarelto) 20 mg PO DAILY 08/23/22 11/13/22 duloxetine 20 mg capsule,delayed 40 mg PO DAILY 08/31/22 11/13/22 release duloxetine 60 mg capsule,delayed 60 mg PO DAILY 08/31/22 11/13/22 release gabapentin 300 mg capsule 600 mg PO TID 08/31/22 11/13/22 cholecalciferol (vitamin D3) 25 25 mcg PO DAILY 10/30/22 11/13/22 mcg (1,000 unit) tablet hydroxyzine pamoate 25 mg capsule 1 cap PO TID PRN Anxiety 11/13/22 11/13/22 (Vistaril) nystatin 100,000 unit/mL oral 4 ml PO QID 11/13/22 11/13/22 suspension potassium chloride 20 mEq 1 tab PO DAILY 11/13/22 11/13/22 tablet,extended release trazodone 50 mg tablet 1 tab PO BEDTIME PRN Insomnia 11/13/22 11/13/22 Previous Rx's Medication Instructions Recorded cyclobenzaprine 10 mg tablet 10 mg PO Q8H #14 tabs 10/19/22 Allergies Allergy/AdvReac Type Severity Reaction Status Date / Time No Known Allergies Allergy Verified 08/23/22 14:42 Review of Systems Review of Systems: Constitutional : No Weight loss, No Fever, No Chills, No Night Sweats, No Fatigue, No Malaise ENT/Mouth : No Hearing loss, No Ear Pain, No Nasal Congestion, No Sinus Pain, No Hoarseness, No sore throat, No Rhinorrhea, No Swallowing Difficulty Eyes: No Eye Pain, No Swelling, No Redness, No Foreign Body, No Discharge, No Vision Changes Cardiovascular : No Chest Pain, No SOB, No Orthopnea, No Edema, No Palpitations Respiratory : Complaining of worsening cough, sputum production, dyspnea Gastrointestinal : No Nausea, No Vomiting, No Diarrhea, No Constipation, No abdominal Pain, No Hematochezia, No Melena Genitourinary : no irregular bleeding, No Dysuria, No Urinary Frequency, No Hematuria, No Urinary Incontinence, No Urgency, No Flank Pain, No Urinary Flow Changes, No Hesitancy Musculoskeletal : No joint pain, No Myalgias, No Joint Swelling Skin : No Skin Lesions, No rash Neuro : No Weakness, No Numbness, No Paresthesias, No Loss of Consciousness, No Dizziness, No Headache Psych : No Anxiety/Panic, No Depression, No SI/HI/AH/VH, No Social Issues, Heme/Lymph: No Bruising, No Bleeding,No Lymphadenopathy Endocrine : No Polyuria, No Polydipsia, No Temperature Intolerance [facility] Past Medical History Medical History (Updated 11/14/22 @ 03:42 by Aggie Parsons MD) Arthritis of both knees Asthma Back pain COPD exacerbation Depression with anxiety High cholesterol History of fibromyalgia Ovarian cyst Surgical History H/O knee surgery Hx of dilation and curettage Hx of tonsillectomy Family History Family History Brother Cancer of pancreas Social History Social History Household Members: None Housing: Apartment Do you presently have visiting nurse or other home services: Yes ([employer]) Alcohol intake: never Patient Tobacco Use Status: Current everyday Tobacco user Tobacco use type: Cigarette Cigarette Packs Per Day: 0.5 Cigarettes Per Day: 10.0 Years Smoked: 54 Smoked in Last 30 Days: No Use of substances other than those prescribed or required for medical reasons: No Substance Use Type: Marijuana Advance Directives: No Advance Directives Date on File: 10/30/22 service: No Current occupational status: disabled Physical Exam Vital Signs: Vital Signs: Last Vital Signs Temp 97.9 F 11/14/22 02:00 Pulse 89 11/14/22 02:00 Resp 17 11/14/22 02:00 BP 99/65 11/14/22 02:00 Pulse Ox 96 11/14/22 02:00 O2 Del Method 11/14/22 02:00 O2 Flow Rate 6 11/13/22 22:49 BMI result Body Mass Index 24.0 Const: Other: Appearance: Alert. Oriented X3. No acute distress. Eyes: Pupils equal, round and reactive to light. ENT: Pharynx normal. Neck: Normal inspection. Neck supple. No lymph nodes noted. No crepitus CVS: Normal heart rate and rhythm. Pulses normal. Normal S1 and S2 Respiratory: Patient on an OxyMask at 7 L saturating 93-94%, wheezing bilaterally, decreased air movement bilaterally, actively coughing productive sputum Abdomen: Soft and nontender. No rigidity. No distention. Skin: Skin warm and dry. Normal skin color. Normal skin turgor. Extremities: No lower extremity edema. No Lacerations. No Rash Neuro: Oriented X 3. No motor deficit. No sensory deficit. Moving all extremities. No slurred speech. CN 2 through 12 grossly intact Psych: calm, cooperative, normal affect Course Course Course Narrative: -All of patient's labs and imaging are pending. -patient is on 7 L OxyMask saturating 94% -patient was given at this time an hour long albuterol treatment, Solu-Medrol, magnesium and 1 L of normal saline. -discussed with the patient that she will be admitted to the hospital -I was informed by the nurse the patient is more lethargic. Patient is arousable to name, still answers questions, the patient feels confused. PCO2 is 61. We will go ahead and start BiPAP for an hour and recheck blood gases. -patient's troponin is 210, likely demand ischemia. Patient has been saturating likely in the high 70s for 12+ hours, no chest pain -patient's potassium being repleted with IV piggybacks -02:39, patient awake, alert, blood pressure 99/65, heart rate 89, temperature 97.9 degrees, oxygen saturation 94% on 6 L with OxyMask. Patient has not had any episodes of hypotension. Patient's white blood cell count 15.6, improved from previous admission. Patient's BNP 290, chest x-ray does not show signs of CHF., no previous BNPs to compare to -patient was taking off of BiPAP after 4 hours. We will recheck venous blood gases, pCO2 actually was a bit more elevated on arrival. However, patient is awake, alert and oriented x4 talking, fully awake, requesting food and water. Patient is now on 6 L saturating 92%, blood pressure 99/5, heart rate 89 I discussed the patient with Dr. Clark, patient being admitted. Medications Administered Discontinued Medications Generic Name Dose Route Start Last Admin Trade Name Freq PRN Reason Stop Dose Admin Albuterol Sulfate 10 mg 11/13/22 21:31 11/13/22 21:39 Albuterol Sulfate (0.083%) 2.5 Mg/3 Ml Vial.Neb INHALE 11/13/22 21:32 10 mg ONCE ONE Administration Magnesium Sulfate 2 gm in 50 mls @ 25 mls/hr 11/13/22 21:31 11/14/22 01:08 Magnesium Sulfate/H2o IV 01/16/23 23:30 Infused ONCE ONE Infusion Levofloxacin 500 mg in 100 mls @ 100 mls/hr 11/13/22 21:31 11/13/22 23:26 Levaquin IV 11/13/22 22:30 Infused ONCE ONE Infusion Sodium Chloride 1,000 mls @ 999 mls/hr 11/13/22 21:31 11/13/22 23:11 Ns IVCONT 11/13/22 22:31 Infused .Q1H1M ONE Infusion Potassium Chloride 10 meq in 100 mls @ 100 mls/hr 11/13/22 23:30 11/14/22 03:26 Potassium Chloride/H20 IV 11/14/22 03:29 100 mls/hr Q1H PUMA Administration Methylprednisolone Sodium Succinate 125 mg 11/13/22 21:31 11/13/22 22:05 Methylprednisolone Sod Succ 125 Mg/2 Ml Vial IVPUSH 11/13/22 21:32 125 mg ONCE ONE Administration Medical Decision Making Differential Diagnosis Differential Diagnoses: The differential diagnosis associated with the presentation includes (COPD, pneumonia, asthma) Admission/Observation Consideration of admission/observation: Escalation of care including admission/observation considered Consult Healthcare Provider Management of the patient was discussed with: Hospitalist Lab Data MDM Lab Attestation statement: I reviewed the patient's lab results. Potassium improved after for piggybacks of potassium 11/13/22 22:00 11/13/22 22:00 Labs: Lab Results 11/13/22 11/13/22 11/13/22 Range/Units 22:00 22:00 22:00 WBC 15.6 H (4.8-10.8) X10*3/uL RBC 5.44 (4.20-5.50) X10*6/uL Hgb 16.0 (12.0-16.0) g/dl Hct 47.0 (37.0-47.0) % MCV 86.4 (80.0-98.0) fL MCH 29.4 (27.0-33.0) pg MCHC 34.0 (31.0-35.0) g/dl RDW 13.8 (11.0-16.0) % Plt Count 284 (160-400) X10*3/uL MPV 9.7 (9.4-12.3) fL Immature Gran % (Auto) 0.3 (0.0-0.4) % Neut % (Auto) 80.8 H (45-73) % Lymph % (Auto) 13.6 L (20-40) % Gilmer % (Auto) 4.8 (2-11) % Eos % (Auto) 0.2 (0-4) % Baso % (Auto) 0.3 (0-2) % Lymph # (Auto) 2.1 (1.2-4.9) X10*3/uL Gilmer # (Auto) 0.8 (0.1-1.2) X10*3/uL Eos # (Auto) 0.0 (0.0-0.4) X10*3/uL Baso # (Auto) 0.1 (0.0-0.2) X10*3/uL Abs Immat Gran (auto) 0.05 H (0.00-0.03) X10*3/uL Absolute Neuts (auto) 12.6 H (2.0-8.3) x10*3/uL Absolute Nucleated RBC 0.000 (0.0-0.012) X10*3/uL Nucleated RBC % (auto) 0.0 (0.0-0.2) /100WBC PT 14.2 H (10.0-13.1) SEC INR 1.2 H (0.9-1.1) VBG pH (7.32-7.43) VBG pCO2 mmHg VBG pO2 mmHg VBG HCO3 (22-26) mmol/L VBG O2 Saturation % VBG Base Excess mmol/L Sodium 137 (135-145) mmol/L Potassium 2.5 L* D (3.3-5.1) mmol/L Chloride 86 L (96-108) mmol/L Carbon Dioxide 39 H (22-29) mmol/L Anion Gap 15 (12-20) BUN 9 (9-16) mg/dL Creatinine 0.83 (0.5-1.4) mg/dL Estim Creat Clear Calc 55.2 Estimated GFR > 60 Random Glucose 157 H (60-115) mg/dL Lactic Acid (0.5-2.0) mmol/L Calcium 9.6 D (8.4-10.2) mg/dL Total Bilirubin 0.9 (0.0-1.0) mg/dL Direct Bilirubin 0.4 (0.0-0.5) mg/dL AST 13 (5-31) U/L ALT 12 (0-31) U/L Alkaline Phosphatase 128 H (39-117) U/L Troponin I High Sens (<3.5-17.0) ng/L B-Natriuretic Peptide (<100) pg/mL Total Protein 7.0 (6.5-8.0) g/dL Albumin 3.8 (3.5-5.0) g/dL COVID-19 (DANIA) (Negative) COVID-19 Clin Com Influenza Type A (DEEPTHI) (Negative) Influenza Type B (DEEPTHI) (Negative) Influenza A & B Note 11/13/22 11/13/22 11/13/22 Range/Units 22:00 22:00 22:00 WBC (4.8-10.8) X10*3/uL RBC (4.20-5.50) X10*6/uL Hgb (12.0-16.0) g/dl Hct (37.0-47.0) % MCV (80.0-98.0) fL MCH (27.0-33.0) pg MCHC (31.0-35.0) g/dl RDW (11.0-16.0) % Plt Count (160-400) X10*3/uL MPV (9.4-12.3) fL Immature Gran % (Auto) (0.0-0.4) % Neut % (Auto) (45-73) % Lymph % (Auto) (20-40) % Gilmer % (Auto) (2-11) % Eos % (Auto) (0-4) % Baso % (Auto) (0-2) % Lymph # (Auto) (1.2-4.9) X10*3/uL Gilmer # (Auto) (0.1-1.2) X10*3/uL Eos # (Auto) (0.0-0.4) X10*3/uL Baso # (Auto) (0.0-0.2) X10*3/uL Abs Immat Gran (auto) (0.00-0.03) X10*3/uL Absolute Neuts (auto) (2.0-8.3) x10*3/uL Absolute Nucleated RBC (0.0-0.012) X10*3/uL Nucleated RBC % (auto) (0.0-0.2) /100WBC PT (10.0-13.1) SEC INR (0.9-1.1) VBG pH (7.32-7.43) VBG pCO2 mmHg VBG pO2 mmHg VBG HCO3 (22-26) mmol/L VBG O2 Saturation % VBG Base Excess mmol/L Sodium (135-145) mmol/L Potassium (3.3-5.1) mmol/L Chloride (96-108) mmol/L Carbon Dioxide (22-29) mmol/L Anion Gap (12-20) BUN (9-16) mg/dL Creatinine (0.5-1.4) mg/dL Estim Creat Clear Calc Estimated GFR Random Glucose (60-115) mg/dL Lactic Acid 2.0 (0.5-2.0) mmol/L Calcium (8.4-10.2) mg/dL Total Bilirubin (0.0-1.0) mg/dL Direct Bilirubin (0.0-0.5) mg/dL AST (5-31) U/L ALT (0-31) U/L Alkaline Phosphatase (39-117) U/L Troponin I High Sens 209.9 H* (<3.5-17.0) ng/L B-Natriuretic Peptide 290 H (<100) pg/mL Total Protein (6.5-8.0) g/dL Albumin (3.5-5.0) g/dL COVID-19 (DANIA) (Negative) COVID-19 Clin Com Influenza Type A (DEEPTHI) (Negative) Influenza Type B (DEEPTHI) (Negative) Influenza A & B Note 11/13/22 11/13/22 11/13/22 Range/Units 22:00 22:00 22:08 WBC (4.8-10.8) X10*3/uL RBC (4.20-5.50) X10*6/uL Hgb (12.0-16.0) g/dl Hct (37.0-47.0) % MCV (80.0-98.0) fL MCH (27.0-33.0) pg MCHC (31.0-35.0) g/dl RDW (11.0-16.0) % Plt Count (160-400) X10*3/uL MPV (9.4-12.3) fL Immature Gran % (Auto) (0.0-0.4) % Neut % (Auto) (45-73) % Lymph % (Auto) (20-40) % Gilmer % (Auto) (2-11) % Eos % (Auto) (0-4) % Baso % (Auto) (0-2) % Lymph # (Auto) (1.2-4.9) X10*3/uL Gilmer # (Auto) (0.1-1.2) X10*3/uL Eos # (Auto) (0.0-0.4) X10*3/uL Baso # (Auto) (0.0-0.2) X10*3/uL Abs Immat Gran (auto) (0.00-0.03) X10*3/uL Absolute Neuts (auto) (2.0-8.3) x10*3/uL Absolute Nucleated RBC (0.0-0.012) X10*3/uL Nucleated RBC % (auto) (0.0-0.2) /100WBC PT (10.0-13.1) SEC INR (0.9-1.1) VBG pH 7.47 H (7.32-7.43) VBG pCO2 61 mmHg VBG pO2 56 mmHg VBG HCO3 45 H (22-26) mmol/L VBG O2 Saturation 81.0 % VBG Base Excess 17.6 mmol/L Sodium (135-145) mmol/L Potassium (3.3-5.1) mmol/L Chloride (96-108) mmol/L Carbon Dioxide (22-29) mmol/L Anion Gap (12-20) BUN (9-16) mg/dL Creatinine (0.5-1.4) mg/dL Estim Creat Clear Calc Estimated GFR Random Glucose (60-115) mg/dL Lactic Acid (0.5-2.0) mmol/L Calcium (8.4-10.2) mg/dL Total Bilirubin (0.0-1.0) mg/dL Direct Bilirubin (0.0-0.5) mg/dL AST (5-31) U/L ALT (0-31) U/L Alkaline Phosphatase (39-117) U/L Troponin I High Sens (<3.5-17.0) ng/L B-Natriuretic Peptide (<100) pg/mL Total Protein (6.5-8.0) g/dL Albumin (3.5-5.0) g/dL COVID-19 (DANIA) Negative (Negative) COVID-19 Clin Com See Note Influenza Type A (DEEPTHI) Negative (Negative) Influenza Type B (DEEPTHI) Negative (Negative) Influenza A & B Note See Note 11/14/22 11/14/22 11/14/22 Range/Units 02:56 02:56 03:00 WBC (4.8-10.8) X10*3/uL RBC (4.20-5.50) X10*6/uL Hgb (12.0-16.0) g/dl Hct (37.0-47.0) % MCV (80.0-98.0) fL MCH (27.0-33.0) pg MCHC (31.0-35.0) g/dl RDW (11.0-16.0) % Plt Count (160-400) X10*3/uL MPV (9.4-12.3) fL Immature Gran % (Auto) (0.0-0.4) % Neut % (Auto) (45-73) % Lymph % (Auto) (20-40) % Gilmer % (Auto) (2-11) % Eos % (Auto) (0-4) % Baso % (Auto) (0-2) % Lymph # (Auto) (1.2-4.9) X10*3/uL Gilmer # (Auto) (0.1-1.2) X10*3/uL Eos # (Auto) (0.0-0.4) X10*3/uL Baso # (Auto) (0.0-0.2) X10*3/uL Abs Immat Gran (auto) (0.00-0.03) X10*3/uL Absolute Neuts (auto) (2.0-8.3) x10*3/uL Absolute Nucleated RBC (0.0-0.012) X10*3/uL Nucleated RBC % (auto) (0.0-0.2) /100WBC PT (10.0-13.1) SEC INR (0.9-1.1) VBG pH 7.44 H (7.32-7.43) VBG pCO2 66 mmHg VBG pO2 54 mmHg VBG HCO3 45 H (22-26) mmol/L VBG O2 Saturation 83.0 % VBG Base Excess 17.2 mmol/L Sodium 138 (135-145) mmol/L Potassium 3.6 D (3.3-5.1) mmol/L Chloride 91 L (96-108) mmol/L Carbon Dioxide 32 H (22-29) mmol/L Anion Gap 19 (12-20) BUN 10 (9-16) mg/dL Creatinine 0.76 (0.5-1.4) mg/dL Estim Creat Clear Calc 60.2 Estimated GFR > 60 Random Glucose 172 H (60-115) mg/dL Lactic Acid (0.5-2.0) mmol/L Calcium 8.6 D (8.4-10.2) mg/dL Total Bilirubin (0.0-1.0) mg/dL Direct Bilirubin (0.0-0.5) mg/dL AST (5-31) U/L ALT (0-31) U/L Alkaline Phosphatase (39-117) U/L Troponin I High Sens 154.8 H* (<3.5-17.0) ng/L B-Natriuretic Peptide (<100) pg/mL Total Protein (6.5-8.0) g/dL Albumin (3.5-5.0) g/dL COVID-19 (DANIA) (Negative) COVID-19 Clin Com Influenza Type A (DEEPTHI) (Negative) Influenza Type B (DEEPTHI) (Negative) Influenza A & B Note Independent Interpretation I performed an independent interpretation of an: EKG and Plain X-Ray (My interpretation: No infiltrates) Interpretation: My interpretation: Sinus rhythm, heart rate 101, no ST segment depressions or elevations, no T-wave inversions, QTC 487 Radiology Impression Discussion of test interpretation with radiology: I have reviewed the radiologist's reading. Radiologist Impression: FINDINGS: Lung volumes are low. Streaky opacities are seen at the left base. Bronchial wall thickening. No pleural effusion. No pneumothorax. The cardiomediastinal silhouette is unchanged. XR/XR chest 1V IMPRESSION: Bronchial wall thickening can be seen with a small airways process such as asthma or atypical/viral infection. Left basilar opacity could represent superimposed atelectasis or pneumonia Critical Care Time Critical Care Time Critical Care Time: Yes Total Critical Care Time: 120 Attestation: I have personally provided critical care time. Time includes review of lab data, radiology results, discussion with consultants, and monitoring for potential decompensation. Intervention performed as documented. Discharge Plan Discharge Clinical Impression: Chronic lung disease, Respiratory failure, Acute hypokalemia Patient Disposition: Admitted As Inpatient Prescriptions: No Action cyclobenzaprine 10 mg tablet 10 mg PO Q8H Qty: 14 0RF cholecalciferol (vitamin D3) 25 mcg (1,000 unit) Tablet 25 mcg PO DAILY nystatin 100,000 unit/mL suspension 4 ml PO QID trazodone 50 mg tablet 1 tab PO BEDTIME PRN (Reason: Insomnia) hydroxyzine pamoate [Vistaril] 25 mg capsule 1 cap PO TID PRN (Reason: Anxiety) potassium chloride 20 mEq tablet extended release 1 tab PO DAILY duloxetine 60 mg capsule,delayed release(DR/EC) 60 mg PO DAILY atorvastatin 10 mg tablet 10 mg PO DAILY clonazepam 1 mg tablet 1 mg PO BID albuterol sulfate 90 mcg/actuation HFA aerosol inhaler 2 puff inhalation Q6H PRN (Reason: sob) fluticasone propion-salmeterol [Wixela Inhub] 250-50 mcg/dose blister with device 1 ea inhalation BID furosemide 40 mg tablet 40 mg PO BID aripiprazole 2 mg tablet 2 mg PO BID Xarelto 20 mg tablet 20 mg PO DAILY duloxetine 20 mg capsule,delayed release(DR/EC) 40 mg PO DAILY gabapentin 300 mg capsule 600 mg PO TID
--- NOTE | 2022-11-13 21:32 | ECG_ITS ---
Test Reason : SOB Blood Pressure : / mmHG Vent. Rate : 101 BPM Atrial Rate : 101 BPM P-R Int : 154 ms QRS Dur : 072 ms QT Int : 376 ms P-R-T Axes : 081 013 057 degrees QTc Int : 487 ms Sinus tachycardia Otherwise normal ECG When compared with ECG of 29-OCT-2022 17:00, Aberrant conduction is no longer Present Referred By: Aggie Parsons Electronically Signed By:CHRISTINE LIRA MD
[2022-11-13] MEDS: Albuterol Sulfate (0.083%) 2.5 MG/3 ML VIAL.NEB 10 MG INHALE (21:39)
[2022-11-13] MEDS: 0.9 % Sodium Chloride 1,000 ML 999 ML IVCONT (22:04)
[2022-11-13] MEDS: methylPREDNISolone Sod Succ 125 MG/2 ML VIAL IVPUSH (22:05)
[2022-11-13] MEDS: Magnesium Sulfate/H2O 2 GM/50 ML PIGGYBACK IV (22:05)
[2022-11-13 22:09] LABS: MANUAL DIFF FLAG NO
[2022-11-13 22:11] LABS: Basophils Absolute Auto 0.1 X10*3/uL (0.0-0.2); Basophils Percent Auto 0.3 % (0-2); Eosinophils Percent Auto 0.2 % (0-4); Imm Gran Abs Auto 0.05 X10*3/uL (0.00-0.03); Imm Gran Pct Auto 0.3 % (0.0-0.4); Lymphocytes Absolute Auto 2.1 X10*3/uL (1.2-4.9); Lymphocytes Percent Auto 13.6 % (20-40); Mean Corpuscular Hemoglobin 29.4 pg (27.0-33.0); Mean Corpuscular Volume 86.4 fL (80.0-98.0); Mean Platelet Volume 9.7 fL (9.4-12.3); Monocytes Absolute Auto 0.8 X10*3/uL (0.1-1.2); Monocytes Percent Auto 4.8 % (2-11); Neutrophils Absolute Auto 12.6 x10*3/uL (2.0-8.3); Neutrophils Percent Auto 80.8 % (45-73); Platelet Count 284 X10*3/uL (160-400); Red Blood Count 5.44 X10*6/uL (4.20-5.50); Red Cell Distribution Width 13.8 % (11.0-16.0); White Blood Count 15.6 X10*3/uL (4.8-10.8)
[2022-11-13 22:15] LABS: VBG Base Excess 17.6 mmol/L; VBG HCO3 45 mmol/L (22-26); VBG pCO2 61 mmHg; VBG pH 7.47 (7.32-7.43); VBG pO2 56 mmHg
[2022-11-13 22:15] LABS: Venous Blood Gas Refer to POC result
[2022-11-13 22:16] LABS: INTERNATIONAL NORM RATIO 1.2 (0.9-1.1); Prothrombin Time 14.2 SEC (10.0-13.1)
--- NOTE | 2022-11-13 22:22 | PHA.MEDREC ---
Pharmacy Consult ? Medication Reconciliation Pharmacy has completed the medication reconciliation. SPOKE TO PATIENT. PATIENT DIDNT KNOW IF SHE TOOK MEDS IN AM
[2022-11-13] MEDS: levoFLOXacin/D5W 500 MG/100 ML PIGGYBACK 100 MG IV (22:26)
[2022-11-13 22:30] LABS: B Type Natriuretic Peptide 290 pg/mL (<100)
[2022-11-13 22:41] LABS: Alanine Aminotransferase 12 U/L (0-31); Albumin Level 3.8 g/dL (3.5-5.0); Alkaline Phosphatase 128 U/L (39-117); Anion Gap 15 (12-20); Aspartate Amino Transferase 13 U/L (5-31); Bilirubin Direct 0.4 mg/dL (0.0-0.5); Bilirubin Total 0.9 mg/dL (0.0-1.0); Blood Urea Nitrogen 9 mg/dL (9-16); Calcium 9.6 mg/dL (8.4-10.2); Carbon Dioxide 39 mmol/L (22-29); Chloride 86 mmol/L (96-108); Creatinine Clr Calc Pharmacy 55.2; Estimated Glomerular Filt Rate > 60; Glucose Random 157 mg/dL (60-115); IDNOW Serial# BCCEAD1C; Influenza A Negative (Negative); Influenza B2 Negative (Negative); Potassium 2.5 mmol/L (3.3-5.1); Sodium 137 mmol/L (135-145)
[2022-11-13 22:46] LABS: Troponin-I High Sensitivity 209.9 ng/L (<3.5-17.0)
[2022-11-13 22:49] LABS: COVID-19 Test Negative (Negative); IDNOW Serial# 6674DD1D
--- NOTE | 2022-11-13 23:26 | PC.NURSE ---
patient wearing 6L O2 via oxymask - labored breathing, inc wob, patient becoming increasingly lethargic and now reporting confusion. provider aware. respiratory called to start patient on bipap. will continue to monitor
[2022-11-13] MEDS: Potassium Chloride/H20 10 MEQ/100 ML PIGGYBACK 100 MEQ IV (23:46)
--- NOTE | 2022-11-13 23:55 | PC.RT ---
Pt placed on BIPAP 14/6 30%. All alarms set apptopriately. HR 89 SPO2 91
[2022-11-14] VITALS (10 sets, daily range): BP systolic 96–120; BP diastolic 61–68; PULSE 88–105; RESP 13–20; TEMP 36–36.6; O2SAT 89–96
[2022-11-14] MEDS: Potassium Chloride/H20 10 MEQ/100 ML PIGGYBACK 100 MEQ IV ×3 (00:58→03:26)
[2022-11-14 03:04] LABS: Venous Blood Gas Refer to POC result
[2022-11-14 03:06] LABS: VBG Base Excess 17.2 mmol/L; VBG HCO3 45 mmol/L (22-26); VBG pCO2 66 mmHg; VBG pH 7.44 (7.32-7.43); VBG pO2 54 mmHg
[2022-11-14 03:19] LABS: Anion Gap 19 (12-20); Blood Urea Nitrogen 10 mg/dL (9-16); Calcium 8.6 mg/dL (8.4-10.2); Carbon Dioxide 32 mmol/L (22-29); Chloride 91 mmol/L (96-108); Creatinine Clr Calc Pharmacy 60.2; Estimated Glomerular Filt Rate > 60; Glucose Random 172 mg/dL (60-115); Potassium 3.6 mmol/L (3.3-5.1); Sodium 138 mmol/L (135-145)
[2022-11-14 03:27] LABS: Troponin-I High Sensitivity 154.8 ng/L (<3.5-17.0)
[2022-11-14 05:56] LABS: ABG Base Excess 19.2 mmol/L; ABG HCO3 47 mmol/L (22-26); ABG pCO2 64 mmHg (32-45); ABG pH 7.46 (7.35-7.45); ABG pO2 67 mmHg (83-108)
--- NOTE | 2022-11-14 05:58 | P.HPHOSP_ITS ---
History of Present Illness Date of Service: 11/14/22 Chief Complaint: Dyspnea this is a 67-year-old female with pertinent history of COPD, mood disorder, hyperlipidemia, fibromyalgia who presents to the emergency department for evaluation of dyspnea. Patient was recently admitted on 10/30 and discharged on 11/01 with 2 L supplemental oxygen. Patient was admitted for right-sided community-acquired pneumonia leading to COPD exacerbation. Patient states she did not use oxygen at home. at bedside stated that the oxygen concentrator company arrived but could not fit the oxygen tank through the door and hence the left without delivering. The company was supposed to deliver additional oxygen tanks but never returned. stated that patient also has been confused throughout the day. Patient states her breathing worsened since discharge. It is associated with cough and brownish sputum production. Patient denies fever, chills, chest discomfort, palpitations, abdominal pain, changes in urinary or bowel habits in the emergency department, patient was satting 77% on room air and she was placed on OxyMask Review of Systems Constitutional: Constitutional: Reports fatigue, Reports lethargy and Reports malaise Cardiovascular: Cardiovascular: Reports dyspnea and Reports dyspnea on exertion Respiratory: Respiratory: Reports cough, Reports excessive phlegm production, Reports pain with cough, Reports dyspnea, Reports dyspnea on exertion and Reports wheezing Gastrointestinal: Gastrointestinal: Reports no additional gastrointestinal complaints Genitourinary: Genitourinary: Reports no additional female genitourinary complaints Endocrine: Endocrine: Reports fatigue Allergic/Immunologic: Allergic/Immunologic: Reports wheezing [facility] Medical History Arthritis of both knees Asthma Back pain COPD exacerbation Depression with anxiety High cholesterol History of fibromyalgia Ovarian cyst Family History Brother Cancer of pancreas Surgical History H/O knee surgery Hx of dilation and curettage Hx of tonsillectomy Social History Household Members: None Housing: Apartment Do you presently have visiting nurse or other home services: Yes ([employer]) Alcohol intake: never Patient Tobacco Use Status: Current everyday Tobacco user Tobacco use type: Cigarette Cigarette Packs Per Day: 0.5 Cigarettes Per Day: 10.0 Years Smoked: 54 Smoked in Last 30 Days: No Use of substances other than those prescribed or required for medical reasons: No Substance Use Type: Marijuana Advance Directives: No Advance Directives Date on File: 10/30/22 service: No Current occupational status: disabled Meds Allergies Allergy/AdvReac Type Severity Reaction Status Date / Time No Known Allergies Allergy Verified 08/23/22 14:42 Active Medications: Current Medications Pharmacy Consult (Consult Rx Perform Med Rec) 1 each MISCELLANE ONCE PRN PRN Reason: Consult order Home Medications Medication Instructions Recorded Confirmed Last Taken Type albuterol sulfate 90 mcg/actuation 2 puff inhalation Q6H PRN sob 08/23/22 11/13/22 10/28/22 History aerosol inhaler aripiprazole 2 mg tablet 2 mg PO BID 08/23/22 11/13/22 10/28/22 History atorvastatin 10 mg tablet 10 mg PO DAILY 08/23/22 11/13/22 10/28/22 History clonazepam 1 mg tablet 1 mg PO BID 08/23/22 11/13/22 10/28/22 History fluticasone 250 mcg-salmeterol 50 1 ea inhalation BID 08/23/22 11/13/22 10/28/22 History mcg/dose blistr powdr for inhalation (Jacobxela Inhub) furosemide 40 mg tablet 40 mg PO BID 08/23/22 11/13/22 10/28/22 History rivaroxaban 20 mg tablet (Xarelto) 20 mg PO DAILY 08/23/22 11/13/22 10/28/22 Hi story duloxetine 20 mg capsule,delayed 40 mg PO DAILY 08/31/22 11/13/22 10/28/22 History release duloxetine 60 mg capsule,delayed 60 mg PO DAILY 08/31/22 11/13/22 10/28/22 History release gabapentin 300 mg capsule 600 mg PO TID 08/31/22 11/13/22 10/28/22 History cholecalciferol (vitamin D3) 25 25 mcg PO DAILY 10/30/22 11/13/22 Unknown History mcg (1,000 unit) tablet hydroxyzine pamoate 25 mg capsule 1 cap PO TID PRN Anxiety 11/13/22 11/13/22 Unknown History (Vistaril) nystatin 100,000 unit/mL oral 4 ml PO QID 11/13/22 11/13/22 Unknown History suspension potassium chloride 20 mEq 1 tab PO DAILY 11/13/22 11/13/22 Unknown History tablet,extended release trazodone 50 mg tablet 1 tab PO BEDTIME PRN Insomnia 11/13/22 11/13/22 Unknown History Physical Exam Vital Signs and Narrative: Vital Signs: Last Vital Signs Temp 97.8 F 11/14/22 04:00 Pulse 89 11/14/22 04:00 Resp 13 11/14/22 04:00 BP 98/66 11/14/22 04:00 Pulse Ox 93 11/14/22 04:00 O2 Del Method 11/14/22 04:00 O2 Flow Rate 7 11/14/22 04:00 BMI result Body Mass Index 24.0 Middle-aged female lying in bed in mild distress on supplemental oxygen Neck supple, no JVD Regular rate and rhythm, S1-S2 heard bilateral wheezing with left-sided crackles Abdomen soft nontender, no guarding, no rigidity Patient is awake, alert and oriented to self, place disoriented to time and person ; no focal motor deficit Psych: Normal mood Results Labs 11/13/22 22:00 11/14/22 02:56 Labs: Laboratory Results - last 24 hr 11/13/22 11/13/22 11/13/22 22:00 22:00 22:00 MCV 86.4 MCH 29.4 MCHC 34.0 RDW 13.8 Plt Count 284 MPV 9.7 Immature Gran % (Auto) 0.3 Neut % (Auto) 80.8 H Lymph % (Auto) 13.6 L [place] % (Auto) 4.8 Eos % (Auto) 0.2 Baso % (Auto) 0.3 Lymph # (Auto) 2.1 [place] # (Auto) 0.8 Eos # (Auto) 0.0 Baso # (Auto) 0.1 Abs Immat Gran (auto) 0.05 H Absolute Neuts (auto) 12.6 H Absolute Nucleated RBC 0.000 Nucleated RBC % (auto) 0.0 PT 14.2 H INR 1.2 H O2 Saturation ABG pH at Pt Temp ABG pCO2 at Pt Temp ABG pO2 at Pt Temp ABG HCO3 ABG Base Excess (Actual) VBG pH VBG pCO2 VBG pO2 VBG HCO3 VBG O2 Saturation VBG Base Excess Anion Gap 15 Estim Creat Clear Calc 55.2 Estimated GFR > 60 Random Glucose 157 H Lactic Acid Calcium 9.6 D Total Bilirubin 0.9 Direct Bilirubin 0.4 AST 13 ALT 12 Alkaline Phosphatase 128 H Troponin I High Sens B-Natriuretic Peptide Total Protein 7.0 Albumin 3.8 COVID-19 (DANIA) COVID-19 Clin Com Influenza Type A (DEEPTHI) Influenza Type B (DEEPTHI) Influenza A & B Note 11/13/22 11/13/22 11/13/22 22:00 22:00 22:00 MCV MCH MCHC RDW Plt Count MPV Immature Gran % (Auto) Neut % (Auto) Lymph % (Auto) [place] % (Auto) Eos % (Auto) Baso % (Auto) Lymph # (Auto) [place] # (Auto) Eos # (Auto) Baso # (Auto) Abs Immat Gran (auto) Absolute Neuts (auto) Absolute Nucleated RBC Nucleated RBC % (auto) PT INR O2 Saturation ABG pH at Pt Temp ABG pCO2 at Pt Temp ABG pO2 at Pt Temp ABG HCO3 ABG Base Excess (Actual) VBG pH VBG pCO2 VBG pO2 VBG HCO3 VBG O2 Saturation VBG Base Excess Anion Gap Estim Creat Clear Calc Estimated GFR Random Glucose Lactic Acid 2.0 Calcium Total Bilirubin Direct Bilirubin AST ALT Alkaline Phosphatase Troponin I High Sens 209.9 H* B-Natriuretic Peptide 290 H Total Protein Albumin COVID-19 (DANIA) COVID-19 Clin Com Influenza Type A (DEEPTHI) Influenza Type B (DEEPTHI) Influenza A & B Note 11/13/22 11/13/22 11/13/22 22:00 22:00 22:08 MCV MCH MCHC RDW Plt Count MPV Immature Gran % (Auto) Neut % (Auto) Lymph % (Auto) [place] % (Auto) Eos % (Auto) Baso % (Auto) Lymph # (Auto) [place] # (Auto) Eos # (Auto) Baso # (Auto) Abs Immat Gran (auto) Absolute Neuts (auto) Absolute Nucleated RBC Nucleated RBC % (auto) PT INR O2 Saturation ABG pH at Pt Temp ABG pCO2 at Pt Temp ABG pO2 at Pt Temp ABG HCO3 ABG Base Excess (Actual) VBG pH 7.47 H VBG pCO2 61 VBG pO2 56 VBG HCO3 45 H VBG O2 Saturation 81.0 VBG Base Excess 17.6 Anion Gap Estim Creat Clear Calc Estimated GFR Random Glucose Lactic Acid Calcium Total Bilirubin Direct Bilirubin AST ALT Alkaline Phosphatase Troponin I High Sens B-Natriuretic Peptide Total Protein Albumin COVID-19 (DANIA) Negative COVID-19 Clin Com See Note Influenza Type A (DEEPTHI) Negative Influenza Type B (DEEPTHI) Negative Influenza A & B Note See Note 11/14/22 11/14/22 11/14/22 02:56 02:56 03:00 MCV MCH MCHC RDW Plt Count MPV Immature Gran % (Auto) Neut % (Auto) Lymph % (Auto) [place] % (Auto) Eos % (Auto) Baso % (Auto) Lymph # (Auto) [place] # (Auto) Eos # (Auto) Baso # (Auto) Abs Immat Gran (auto) Absolute Neuts (auto) Absolute Nucleated RBC Nucleated RBC % (auto) PT INR O2 Saturation ABG pH at Pt Temp ABG pCO2 at Pt Temp ABG pO2 at Pt Temp ABG HCO3 ABG Base Excess (Actual) VBG pH 7.44 H VBG pCO2 66 VBG pO2 54 VBG HCO3 45 H VBG O2 Saturation 83.0 VBG Base Excess 17.2 Anion Gap 19 Estim Creat Clear Calc 60.2 Estimated GFR > 60 Random Glucose 172 H Lactic Acid Calcium 8.6 D Total Bilirubin Direct Bilirubin AST ALT Alkaline Phosphatase Troponin I High Sens 154.8 H* B-Natriuretic Peptide Total Protein Albumin COVID-19 (DANIA) COVID-19 Clin Com Influenza Type A (DEEPTHI) Influenza Type B (DEEPTHI) Influenza A & B Note 11/14/22 05:48 MCV MCH MCHC RDW Plt Count MPV Immature Gran % (Auto) Neut % (Auto) Lymph % (Auto) [place] % (Auto) Eos % (Auto) Baso % (Auto) Lymph # (Auto) [place] # (Auto) Eos # (Auto) Baso # (Auto) Abs Immat Gran (auto) Absolute Neuts (auto) Absolute Nucleated RBC Nucleated RBC % (auto) PT INR O2 Saturation 91.0 ABG pH at Pt Temp 7.46 H ABG pCO2 at Pt Temp 64 H* ABG pO2 at Pt Temp 67 L ABG HCO3 47 H ABG Base Excess (Actual) 19.2 VBG pH VBG pCO2 VBG pO2 VBG HCO3 VBG O2 Saturation VBG Base Excess Anion Gap Estim Creat Clear Calc Estimated GFR Random Glucose Lactic Acid Calcium Total Bilirubin Direct Bilirubin AST ALT Alkaline Phosphatase Troponin I High Sens B-Natriuretic Peptide Total Protein Albumin COVID-19 (DANIA) COVID-19 Clin Com Influenza Type A (DEEPTHI) Influenza Type B (DEEPTHI) Influenza A & B Note Imaging Radiologist's Impressions: Impressions Chest X-Ray 11/13/22 21:25 IMPRESSION: Bronchial wall thickening can be seen with a small airways process such as asthma or atypical/viral infection. Left basilar opacity could represent superimposed atelectasis or pneumonia. Assessment and Plan (1) Respiratory failure: Status: Acute (2) COPD exacerbation: Status: Acute (3) Pneumonia: Status: Acute Plan This is a 67-year-old female with pertinent history of COPD, mood disorder, hyperlipidemia, fibromyalgia who presents to the emergency department for evaluation of dyspnea. #. acute on chronic hypoxemic hypercapnic respiratory failure: Patient was discharged on 2 L supplemental oxygen during previous admission but was without oxygen at home due to logistics. Continue supplemental oxygen and wean as tolerated. Maintain oxygen saturation greater than 88%. Patient has chronic hypercapnia at baseline likely due to severe COPD. Obtaining echo to look at pulmonary pressures/ventricular function #. community-acquired pneumonia: Previously right-sided pneumonia on imaging. Currently patient has left basilar opacity. Will treat empirically with IV antibiotics. sputum culture and blood cultures pending #. COPD exacerbation due to above: Continue systemic steroids and scheduled and p.r.n. DuoNebs. Continue home inhaler #. lung nodule: Observed on CT chest during previous admission. Will need ou tpatient follow #. hyperlipidemia: Continue statin #. mood disorder/fibromyalgia: Continue home mood stabilizer #. elevated troponin: likely due to demand ischemia. Repeat. Patient asymptomatic DVT prophylaxis: Xarelto 20mg daily regular diet Full code Admit as inpatient and will require two night minimum hospital stay for supplemental oxygen and IV antibiotic Time Spent With Patient Time: Total time managing care of this patient today ____ minutes. Quality Stroke Does the patient have a stroke diagnosis?: No VTE Prior VTE?: No VTE Risk Level:: Medical - moderate - high VTE Device Contraindication: Treatment Not Indicated VTE Drug Contraindication: N/A - Med Ordered
[2022-11-14] MEDS: Azithromycin 500 MG in 0.9 % Sodium Chloride 250 ML 125 MG IV (06:52)
[2022-11-14] MEDS: Cyclobenzaprine HCl 10 MG TABLET PO ×3 (06:52→21:32)
--- NOTE | 2022-11-14 06:53 | PC.NURSE ---
patient straight cath'd for urine - PATIENT MUCH MORE AWAKE, ALERT, SPEAKING CLEAR FULL SENTENCES, RECEIVING IV ANTIBIOTICS. PROVIDED WITH WARM BLANKETS, CALL FISH WITHIN REACH
--- NOTE | 2022-11-14 07:00 | CA_ITS ---
Transthoracic Echocardiogram Patient (Last, First, Middle): Jackie Mazariegos, Gender: Female Date of : 1955 Age: 67 Procedure Date: 11/14/2022 Procedure Type: Transthoracic Echocardiogram Location: ER Height: 154.94 cm Weight: 57.61 kg BSA: 1.56 m2 Heart Rate: 93 bpm BP: 93 / 63 mmHg Lead Process Engineer: SB Referring MD: Esperanza Hooper MD Product Assembler: Calin Dent MD Symptoms: ?HF Study Quality: Adequate w contrast ECG Rhythm: Sinus Conclusions: - 1. Normal LV systolic function 2. Upper limits of normal RV systolic pressure with mildly elevated right atrial pressure Findings Procedure Information Contrast agent, definity, is being given per protocol without apparent complications. Left Ventricle Normal left ventricular size, thickness, and systolic function. The visually estimated ejection fraction is between 55-60%. Diastolic function is indeterminate on the basis of available data. Venous The inferior vena cava is mildly dilated and collapses less than 50% with inspiration. Pericardium/Pleural The pericardium was not well visualized. Measurements 2D Linear Measurements LVOT Diam: 2.10 3.0+(-)1.3 cm 2D Systolic Function EF 4C: 52.90 >55% EF 2C: 56.80 >55% LVOT LVOT Pk Flaco: 1.20 LVOT Mn Flaco: 0.84 LVOT VTI: 0.24 LVOT Pk Grad: 6.00 LVOT Mn Grad: 3.00 LVOT Diam: 2.10 LVOT Area: 3.46 Tricuspid Valve TR Pk Flaco: 2.71 TR Pk Grad: 29.00 RA Press: 8.00 RVSP: 37.00 Updated in Other Vendor System with Status of Final Calin Dent MD electronically signed on 11/14/2022 12:16:50 PM with status of Final
[2022-11-14 07:01] LABS: Appearance Urine Clear; Color Urine Yellow; Glucose Urine UA Negative (Negative); Leukocyte Esterase Urine Negative (Negative); Nitrite Urine Negative (Negative); Specific Gravity - Urine 1.025 (1.005-1.025); Urine Blood Negative (Negative); Urine Ketones Negative (Negative); Urine Protein Negative (Neg-Trace)
[2022-11-14 07:07] LABS: Amphetamine Screen Urine Not Detected (Not Detect); Barbiturates, Urine Not Detected (Not Detect); Benzodiazepines Screen Urine POSITIVE (Not Detect); Cannabinoid Screen Urine POSITIVE (Not Detect); Cocaine Screen Urine POSITIVE (Not Detect); Fentanyl, urine POSITIVE (Not Detect); Opiate Screen Urine Not Detected (Not Detect); Phencyclidine Screen Urine Not Detected (Not Detect)
[2022-11-14 08:09] LABS: ABG Refer to POC result
[2022-11-14] MEDS: cefTRIAXone sodium 1 GM in 0.9 % Sodium Chloride 50 ML IV (08:51)
[2022-11-14] MEDS: 0.9 % Sodium Chloride Flush 3 ML SYRINGE IVFLUSH ×3 (08:52→21:36)
--- NOTE | 2022-11-14 08:55 | PC.RT ---
pharmacy called for Breo. Med not in the ED. Asked to deliver to [facility] when she is being transported shortly
--- NOTE | 2022-11-14 09:08 | PC.NURSE ---
pt restless in bed, reporting difficulty breathing, just received updraft by respiratory. pt sats dropped to 74%. call placed to respiratory, changed pt to nonrebreaher on 15L to i oxygen saturation. pts lips cyanotic. SaO2 after intervetion came up to 93%, changed her back to 3L NC, pt skin PWD at this time, lip color returned to baseline
[2022-11-14] MEDS: Gabapentin 300 MG CAPSULE 600 MG PO ×3 (10:01→21:32)
[2022-11-14] MEDS: Atorvastatin Calcium 10 MG TABLET PO (10:02)
[2022-11-14] MEDS: methylPREDNISolone Sod Succ 40 MG/ML VIAL IVPUSH ×2 (10:02→21:33)
[2022-11-14] MEDS: ARIPiprazole 2 MG TABLET PO ×2 (10:02→21:33)
[2022-11-14] MEDS: Rivaroxaban 20 MG TABLET PO (10:02)
[2022-11-14] MEDS: clonazePAM 1 MG TABLET PO ×2 (10:02→21:33)
[2022-11-14] MEDS: DULoxetine HCl 60 MG CAPSULE.DR PO (10:02)
[2022-11-14] MEDS: Cholecalciferol (Vitamin D3) 25 MCG TABLET PO (10:02)
--- NOTE | 2022-11-14 10:10 | PC.NURSE ---
pt complaining of inability to urinate. was straight cath on the overnight to obtain urine sample. no hx of urinary retention. Bladder scan was completed and found 511cc in the bladder. tiger connect sent to dr chu, awaiting orders
--- NOTE | 2022-11-14 10:39 | PC.NURSE ---
telephone order for cornejo catheter for urinary retention
--- NOTE | 2022-11-14 10:54 | PM.EVENT ---
Event Note Date of Service: 11/14/22 Event Note: Seen today, A/P per H and P from this morning. Urinary retention, add cornejo Time Spent With Patient Time: Total time managing care of this patient today ____ minutes.
--- NOTE | 2022-11-14 15:34 | MHC.CM.PN ---
IMM 11/14/22 Female DX Dyspnea lives with S.O. 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 She uses a cane. A HCP was documented and scanned into EMR. Copies were given to the patient. She has been vax x4 for covid. 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 Patient states that she needs oxygen at home. T/W explained that a Home O2 eval will be preformed if she is not able to wean from O2. Patient will be transported to home at discharge by her S.O./HCP
[2022-11-15] VITALS (7 sets, daily range): BP systolic 97–105; BP diastolic 55–63; PULSE 82–94; RESP 16–20; TEMP 36.1–36.7; O2SAT 88–95
[2022-11-15] MEDS: Cyclobenzaprine HCl 10 MG TABLET PO ×3 (06:11→22:36)
[2022-11-15] MEDS: cefTRIAXone sodium 1 GM in 0.9 % Sodium Chloride 50 ML IV (06:15)
--- NOTE | 2022-11-15 07:21 | PC.RT ---
Spoke with patient yesterday about her home oxygen requirements. I performed a Home 02 Evaluation on Oct. She required 2 liters on Ambulation only. She was set up with [employer] and all paperwork with faxed over. [employer] came to her house and both the patient and her said they did not want the Oxygen Concentrator in her home because it was to big and had no room to put it in her apartment. (A 02 concentrator is 18 inches long) Therefore she only had a oxygen tank that we gave her provided by [employer] that would last only 4 hours. I spoke with patient telling her the importance of the oxygen and why she needed it. She denied she was smoking in the house, but she smelled like cigarettes and she was positive for marijuana in her blood. I called [employer] yesterday so they could go to her home once again and do a safety evaluation for the placement of the oxygen concentrator. I will follow up again today with the patient as well as [employer].
[2022-11-15] MEDS: Fluticasone/Vilanterol 100/25 BLST.W.DEV 1 PUFF INHALE (07:54)
[2022-11-15] MEDS: Azithromycin 500 MG in 0.9 % Sodium Chloride 250 ML 125 MG IV (07:58)
[2022-11-15] MEDS: 0.9 % Sodium Chloride Flush 3 ML SYRINGE IVFLUSH ×2 (08:01→16:04)
[2022-11-15] MEDS: DULoxetine HCl 60 MG CAPSULE.DR PO (08:02)
[2022-11-15] MEDS: Gabapentin 300 MG CAPSULE 600 MG PO ×3 (08:02→19:52)
[2022-11-15] MEDS: Atorvastatin Calcium 10 MG TABLET PO (08:02)
[2022-11-15] MEDS: Rivaroxaban 20 MG TABLET PO (08:02)
[2022-11-15] MEDS: clonazePAM 1 MG TABLET PO ×2 (08:03→19:52)
[2022-11-15] MEDS: ARIPiprazole 2 MG TABLET PO ×2 (08:03→19:52)
[2022-11-15] MEDS: Cholecalciferol (Vitamin D3) 25 MCG TABLET PO (08:04)
--- NOTE | 2022-11-15 09:06 | P.CDIC_ITS ---
CDI Concurrent Query Documentation Clarification: PHYSICIAN'S DOCUMENTATION REQUEST Date of Query: 11/15/22905 Patient Name: Jackie Mazariegos Admit Date: 11/14/22 Dear Doctor, A review of the medical record indicates additional documentation may be needed. Please review below and update the documentation accordingly. Clinical Indicators: Risk Factors/Clinical Indicators/Treatments Per ED note 11/13/22: Patient has been without oxygen all day.? The patient's reports that the patient has been confused in an out all day patient is more lethargic.? Patient is arousable to name, still answers questions, the patient feels confused. PCO2 is 61.We will go ahead and start BiPAP for an hour and recheck blood gases. Based on the above, could you clarify in the Progress Notes which, if any of the following, is the most likely etiology of the confusion/altered mental status? * Encephalopathy - indicate type such as metabolic, toxic, septic, alcoholic, hypertensive, etc. * Acute or subacute confusional state due to (specify known or suspected etiology) * Other etiology (please specify) * Unable to determine Use of terms such as suspected, likely, concern for, or probable (associated with a specific diagnosis that is being evaluated, monitored, or treated as if it exists) are acceptable and can be coded in the inpatient setting, when documented at the time of discharge. Thank you, Vanessa Bridges RN Extension: [phone] Please use your independent medical judgment in providing your response. THIS QUERY IS PART OF THE PERMANENT MEDICAL RECORD Provider Response: Encephalopathy
--- NOTE | 2022-11-15 09:52 | HO.PM.IMPN ---
Subjective Subjective Date of Service: 11/15/22 Interval History: f/u on acute on chronic hypoxic respiratory failreu d/t COPD Better, no less SOB, not confused Physical Exam Vital Signs: Vital Signs: Last Vital Signs Temp 96.9 F 11/15/22 07:37 Pulse 91 11/15/22 07:38 Resp 20 11/15/22 07:38 BP 105/59 L 11/15/22 07:37 Pulse Ox 88 L 11/15/22 07:37 O2 Del Method 11/15/22 07:37 O2 Flow Rate 6 11/15/22 07:37 BMI result Body Mass Index 24.0 Const: Other: General: AO X 3, no acute distress Resp: CTA bilateral, moderate WOB CVS: S1,S2,RRR GI: +BS, NT, no distention Skin: No rash Neuro: motor grossly intact Psych: appropriate affect Objective Data Active Medications Acetaminophen (Acetaminophen 325 Mg Tablet) 650 mg PO Q6H PRN PRN Reason: Pain, Mild (Pain Scale 1-3) Aripiprazole (Aripiprazole 2 Mg Tablet) 2 mg PO BID [facility] Last Admin: 11/15/22 08:03 Dose: 2 mg Documented By: ASHLEY Atorvastatin Calcium (Atorvastatin Calcium 10 Mg Tablet) 10 mg PO DAILY [facility] Last Admin: 11/15/22 08:02 Dose: 10 mg Documented By: ASHLEY Clonazepam (Clonazepam 1 Mg Tablet) 1 mg PO BID [facility] Last Admin: 11/15/22 08:03 Dose: 1 mg Documented By: ASHLEY Albuterol Sulfate 2.5 mg/ (Ipratropium Wray 0.5 mg) 0 mg INHALE RQ4H WHILE AWAKE [facility] Last Admin: 11/15/22 07:38 Dose: 1 each Documented By: KILEY Albuterol Sulfate 2.5 mg/ (Ipratropium Wray 0.5 mg) 0 mg INHALE RQ4H PRN PRN Reason: Wheezing Cyclobenzaprine HCl (Cyclobenzaprine Hcl 10 Mg Tablet) 10 mg PO Q8H [facility] Last Admin: 11/15/22 06:11 Dose: 10 mg Documented By: RODNEY Duloxetine HCl (Duloxetine Hcl 60 Mg Capsule.) 60 mg PO DAILY [facility] Last Admin: 11/15/22 08:02 Dose: 60 mg Documented By: ASHLEY Fluticasone/Vilanterol (Fluticasone/Vilanterol 100/25 Blst.W.Dev) 1 puff INHALE RDAILY [facility] Last Admin: 11/15/22 07:54 Dose: 1 puff Documented By: KILEY Gabapentin (Gabapentin 300 Mg Capsule) 600 mg PO TID [facility] Last Admin: 11/15/22 08:02 Dose: 600 mg Documented By: ASHLEY Hydroxyzine HCl (Hydroxyzine Hcl 25 Mg Tablet) 25 mg PO TID PRN PRN Reason: Anxiety Ceftriaxone Sodium 1 gm/ (Sodium Chloride) 50 mls @ 100 mls/hr IV Q24H [facility] Last Infusion: 11/15/22 06:46 Dose: 0 mls/hr Documented By: RODNEY Azithromycin 500 mg/ Sodium (Chloride) 250 mls @ 125 mls/hr IV Q24H [facility] Last Admin: 11/15/22 07:58 Dose: 125 mls/hr Documented By: ASHLEY Melatonin (Melatonin 3 Mg Tablet) 6 mg PO BEDTIME PRN PRN Reason: Insomnia Methylprednisolone Sodium Succinate (Methylprednisolone Sod Succ 40 Mg/Ml Vial) 40 mg IVPUSH Q12H [facility] Last Admin: 11/14/22 21:33 Dose: 40 mg Documented By: RODNEY Ondansetron HCl (Ondansetron Hcl 4 Mg/2 Ml Vial) 4 mg IVPUSH Q8H PRN PRN Reason: Nausea and Vomiting Pharmacy Consult (Consult Rx Perform Med Rec) 1 each MISCELLANE ONCE PRN PRN Reason: Consult order Rivaroxaban (Rivaroxaban 20 Mg Tablet) 20 mg PO DAILY [facility] Last Admin: 11/15/22 08:02 Dose: 20 mg Documented By: ASHLEY Sodium Chloride (0.9 % Sodium Chloride Flush 3 Ml Syringe) 3 ml IVFLUSH QSHIFT [facility] Last Admin: 11/15/22 08:01 Dose: 3 ml Documented By: ASHLEY Trazodone HCl (Trazodone Hcl 50 Mg Tablet) 50 mg PO BEDTIME PRN PRN Reason: Insomnia Vitamin D (Cholecalciferol (Vitamin D3) 25 Mcg Tablet) 25 mcg PO DAILY [facility] Last Admin: 11/15/22 08:04 Dose: 25 mcg Documented By: ASHLEY Labs 11/13/22 22:00 11/14/22 02:56 Microbiology Microbiology Results: Microbiology 11/13/22 22:00 Blood Culture - Preliminary Blood - Venous No growth after 24 hours. 11/13/22 22:00 Blood Culture - Preliminary Blood - Venous No growth after 24 hours. Assessment and Plan (1) Pneumonia: Status: Acute (2) Chronic lung disease: Status: Acute (3) Respiratory failure: Status: Acute (4) Acute hypokalemia: Status: Acute Plan 67-year-old female with pertinent history of COPD, mood disorder, hyperlipidemia, fibromyalgia who presents to the emergency department for evaluation of dyspnea. #. acute on chronic hypoxemic hypercapnic respiratory failure:? Patient was discharged on 2 L supplemental oxygen during previous admission but was without oxygen at home due to logistics.? continue O2 with goal of O2 88 to 93 only #. community-acquired pneumonia: Previously right-sided pneumonia on imaging.? Currently patient has left basilar opacity.? Will treat empirically with IV antibiotics. sputum culture and blood cultures pending #.? COPD exacerbation due to above:? Continue systemic steroids and scheduled and p.r.n. DuoNebs. Continue home inhaler, change to Prednisone at discharge #.? lung nodule:? Observed on CT chest during previous admission.? Will need outpatient follow up by Dr. Weathers #. hyperlipidemia: Continue statin #. mood disorder/fibromyalgia: Continue home mood stabilizer #.? elevated troponin: likely due to demand ischemia.? Repeat.? Patient asymptomatic ?DVT prophylaxis: Xarelto 20mg daily ?regular diet Full code Admission d/t acute hypoxic respriatory failure d/t COPD still need IV steroid and adjustemt of O2 Time Spent With Patient Time: Total time managing care of this patient today ____ minutes. Quality Stroke Does the patient have a stroke diagnosis?: No VTE Prior VTE?: No VTE Risk Level:: Medical - moderate - high VTE Device Contraindication: Treatment Not Indicated VTE Drug Contraindication: N/A - Med Ordered
[2022-11-15] MEDS: methylPREDNISolone Sod Succ 40 MG/ML VIAL IVPUSH ×2 (12:01→19:54)
[2022-11-16] VITALS (8 sets, daily range): BP systolic 102–122; BP diastolic 56–71; PULSE 80–107; RESP 16–24; TEMP 36.2–36.6; O2SAT 87–92
[2022-11-16] MEDS: cefTRIAXone sodium 1 GM in 0.9 % Sodium Chloride 50 ML IV (06:13)
[2022-11-16] MEDS: Cyclobenzaprine HCl 10 MG TABLET PO ×3 (06:13→21:54)
[2022-11-16] MEDS: Azithromycin 500 MG in 0.9 % Sodium Chloride 250 ML 125 MG IV (07:13)
[2022-11-16] MEDS: Gabapentin 300 MG CAPSULE 600 MG PO ×3 (07:14→19:48)
[2022-11-16] MEDS: ARIPiprazole 2 MG TABLET PO ×2 (07:14→19:48)
[2022-11-16] MEDS: clonazePAM 1 MG TABLET PO ×2 (07:14→19:48)
[2022-11-16] MEDS: Atorvastatin Calcium 10 MG TABLET PO (07:14)
[2022-11-16] MEDS: Rivaroxaban 20 MG TABLET PO (07:14)
[2022-11-16] MEDS: 0.9 % Sodium Chloride Flush 3 ML SYRINGE IVFLUSH ×3 (07:15→19:49)
[2022-11-16] MEDS: Cholecalciferol (Vitamin D3) 25 MCG TABLET PO (07:15)
[2022-11-16] MEDS: DULoxetine HCl 60 MG CAPSULE.DR PO (07:15)
[2022-11-16] MEDS: Fluticasone/Vilanterol 100/25 BLST.W.DEV 1 PUFF INHALE (07:53)
--- NOTE | 2022-11-16 09:34 | P.PNIM_ITS ---
Subjective Subjective Date of Service: 11/16/22 Interval History: f/u on acute on chronic hypoxic respiratory failreu d/t COPD She continues to be very hypoxic with O2 sat presently at 85 on 6 litersand verified, she however says she feels fine Review of Systems no sob, no Physical Exam Vital Signs: Vital Signs: Last Vital Signs Temp 97.1 F 11/16/22 07:36 Pulse 89 11/16/22 07:40 Resp 20 11/16/22 07:40 BP 121/70 11/16/22 07:36 Pulse Ox 89 L 11/16/22 07:36 O2 Del Method 11/16/22 07:36 O2 Flow Rate 6 11/16/22 07:36 BMI result Body Mass Index 24.0 Const: Other: General: AO X 3, no acute distress Resp: scattered wheezes, good air entry, mild wob CVS: S1,S2,RRR GI: +BS, NT, no distention Skin: No rash Neuro: motor grossly intact Psych: appropriate affect Objective Data Active Medications Acetaminophen (Acetaminophen 325 Mg Tablet) 650 mg PO Q6H PRN PRN Reason: Pain, Mild (Pain Scale 1-3) Aripiprazole (Aripiprazole 2 Mg Tablet) 2 mg PO BID [facility] Last Admin: 11/16/22 07:14 Dose: 2 mg Documented By: ASHLEY Atorvastatin Calcium (Atorvastatin Calcium 10 Mg Tablet) 10 mg PO DAILY [facility] Last Admin: 11/16/22 07:14 Dose: 10 mg Documented By: ASHLEY Clonazepam (Clonazepam 1 Mg Tablet) 1 mg PO BID [facility] Last Admin: 11/16/22 07:14 Dose: 1 mg Documented By: ASHLEY Albuterol Sulfate 2.5 mg/ (Ipratropium [place] 0.5 mg) 0 mg INHALE RQ4H WHILE AWAKE [facility] Last Admin: 11/16/22 07:39 Dose: 2.5 each Documented By: KILEY Albuterol Sulfate 2.5 mg/ (Ipratropium [place] 0.5 mg) 0 mg INHALE RQ4H PRN PRN Reason: Wheezing Cyclobenzaprine HCl (Cyclobenzaprine Hcl 10 Mg Tablet) 10 mg PO Q8H [facility] Last Admin: 11/16/22 06:13 Dose: 10 mg Documented By: LYSAngelica Duloxetine HCl (Duloxetine Hcl 60 Mg Capsule.) 60 mg PO DAILY [facility] Last Admin: 11/16/22 07:15 Dose: 60 mg Documented By: ASHLEY Fluticasone/Vilanterol (Fluticasone/Vilanterol 100/25 Blst.W.Dev) 1 puff INHALE RDAILY [facility] Last Admin: 11/16/22 07:53 Dose: 1 puff Documented By: KILEY Gabapentin (Gabapentin 300 Mg Capsule) 600 mg PO TID [facility] Last Admin: 11/16/22 07:14 Dose: 600 mg Documented By: ASHLEY Hydroxyzine HCl (Hydroxyzine Hcl 25 Mg Tablet) 25 mg PO TID PRN PRN Reason: Anxiety Ceftriaxone Sodium 1 gm/ (Sodium Chloride) 50 mls @ 100 mls/hr IV Q24H [facility] Last Infusion: 11/16/22 07:12 Dose: 0 mls/hr Documented By: ASHLEY Azithromycin 500 mg/ Sodium (Chloride) 250 mls @ 125 mls/hr IV Q24H [facility] Last Infusion: 11/16/22 09:27 Dose: 0 mls/hr Documented By: ASHLEY Melatonin (Melatonin 3 Mg Tablet) 6 mg PO BEDTIME PRN PRN Reason: Insomnia Methylprednisolone Sodium Succinate (Methylprednisolone Sod Succ 40 Mg/Ml Vial) 40 mg IVPUSH Q12H [facility] Last Admin: 11/15/22 19:54 Dose: 40 mg Documented By: LYSAngelica Ondansetron HCl (Ondansetron Hcl 4 Mg/2 Ml Vial) 4 mg IVPUSH Q8H PRN PRN Reason: Nausea and Vomiting Pharmacy Consult (Consult Rx Perform Med Rec) 1 each MISCELLANE ONCE PRN PRN Reason: Consult order Rivaroxaban (Rivaroxaban 20 Mg Tablet) 20 mg PO DAILY [facility] Last Admin: 11/16/22 07:14 Dose: 20 mg Documented By: ASHLEY Sodium Chloride (0.9 % Sodium Chloride Flush 3 Ml Syringe) 3 ml IVFLUSH QSHIFT [facility] Last Admin: 11/16/22 07:15 Dose: 3 ml Documented By: ASHLEY Trazodone HCl (Trazodone Hcl 50 Mg Tablet) 50 mg PO BEDTIME PRN PRN Reason: Insomnia Vitamin D (Cholecalciferol (Vitamin D3) 25 Mcg Tablet) 25 mcg PO DAILY [facility] Last Admin: 11/16/22 07:15 Dose: 25 mcg Documented By: ASHLEY Labs 11/13/22 22:00 11/14/22 02:56 Microbiology Microbiology Results: Microbiology 11/13/22 22:00 Blood Culture - Preliminary Blood - Venous No growth after 48 hours. 11/13/22 22:00 Blood Culture - Preliminary Blood - Venous No growth after 48 hours. Assessment and Plan (1) Pneumonia: Status: Acute (2) Chronic lung disease: Status: Acute (3) Respiratory failure: Status: Acute (4) Acute hypokalemia: Status: Acute Plan 67-year-old female with pertinent history of COPD, mood disorder, hyperlipidemia, fibromyalgia who presents to the emergency department for evaluation of dyspnea. #. acute on chronic hypoxemic hypercapnic respiratory failure:? Patient was discharged on 2 L supplemental oxygen during previous admission but was without oxygen at home due to logistics.? continue O2 with goal of O2 88 to 93 only, get ABG and consider pulmonology consultation #. community-acquired pneumonia: Previously right-sided pneumonia on imaging.? Currently patient has left basilar opacity.? Will treat empirically with IV antibiotics. sputum culture and blood cultures pending #.? COPD exacerbation due to above:? Continue and inclrese solumedrol to 60 and scheduled and p.r.n. DuoNebs. Continue home inhaler, change to Prednisone at discharge #.? lung nodule:? Observed on CT chest during previous admission.? Will need outpatient follow up by Dr. Weathers #. hyperlipidemia: Continue statin #. mood disorder/fibromyalgia: Continue home mood stabilizer #.? elevated troponin: likely due to demand ischemia.? Repeat.? Patient asymptomatic ?DVT prophylaxis: Xarelto 20mg daily ?regular diet Full code inpatient need d/t acute hypoxic respriatory failure d/t COPD still need IV steroid and adjustemt of O2 in setting of severe hypoxic and close monitoring Time Spent With Patient Time: Total time managing care of this patient today ____ minutes. Quality Stroke Does the patient have a stroke diagnosis?: No VTE Prior VTE?: No VTE Risk Level:: Medical - moderate - high VTE Device Contraindication: Treatment Not Indicated VTE Drug Contraindication: N/A - Med Ordered
[2022-11-16 10:33] LABS: ABG Base Excess 19.8 mmol/L; ABG HCO3 46 mmol/L (22-26); ABG pCO2 57 mmHg (32-45); ABG pH 7.51 (7.35-7.45); ABG pO2 64 mmHg (83-108)
[2022-11-16] MEDS: methylPREDNISolone Sod Succ 40 MG/ML VIAL IVPUSH ×2 (11:36→19:48)
[2022-11-16 12:37] LABS: ABG Refer to POC result
--- NOTE | 2022-11-16 13:21 | P.CONPL_ITS ---
History of Present Illness History of Present Illness Consult date: 11/16/22 Reason for consult: cough, COPD and hypoxemia Chief complaint: dyspnea Narrative: I HAVE SEEN THIS 67 YEARS OLD FEMALE THIS MORNING FOR PULMONARY CONSULTATION. SHE HAS BEEN HOSPITALIZED ONCE AGAIN WITH INCREASED COUGH SHORTNESS OF BREATH AND MARKED GENERALIZED WEAKNESS. SHE DENIES FEVER AND CHILLS. ACCORDING TO HER SHE WAS SOMEWHAT CONFUSED FOR 1 DAY. THIS PATIENT WAS ADMITTED EARLIER DURING THIS MONTH FROM 10/30 TO 11/01 FOR ACUTE EXACERBATION OF CHRONIC OBSTRUCTIVE PULMONARY DISEASE. SHE WAS TREATED FOR POSSIBLE PNEUMONIA, WITH COURSE OF ROCEPHIN AND AZITHROMYCIN AND THEN SENT HOME ON PREDNISONE TAPER WELL WIXELA 250-50 B.I.D.. THIS PATIENT WAS SUPPOSED TO HAVE O2 SUPPLEMENTATION AT HOME BUT, OXYGEN COMPANY COULD NOT FIT THE OXYGEN CONCENTRATOR AND CYLINDERS IN HER HOUSE SO IT WAS NOT DELIVERED. THE PATIENT DOES HAVE PAST HISTORY OF COPD FOR QUITE A FEW YEARS, SHE REMAINS AN ACTIVE SMOKER, SHE HAS CHRONIC FIBROMYALGIA, AND SOME ANXIETY DISORDER. PATIENT NOT BEING FOLLOWED BY A SENIOR PRINCIPAL ARCHITECT. DURING HER RECENT PAST ADMISSION SHE ALSO HAD ABDOMINAL PAIN AND CT SCAN SHOWED AN OVARIAN CYST FOR WHICH SHE WAS SUPPOSED TO BE FOLLOWED UP OUTPATIENT. SINCE HER ADMISSION THIS TIME SHE IS AGAIN BEING TREATED WITH IV SOLU-MEDROL, DUONEB UPDRAFTS, OXYGEN SUPPLEMENTATION. AND SHE IS ON IV ROCEPHIN AND AZITHROMYCIN. HER OXYGEN REQUIREMENT IS QUITE HIGH AT THIS TIME 5-6 L/MINUTE. ARTERIAL BLOOD GASES AND VENOUS BLOOD GAS STUDY WERE QUITE ABNORMAL SHOWING H YPOXEMIA AND HYPERCAPNIA. Review of Systems Review of Systems: Yes all other systems are reviewed and are negative and Other (PATIENT IS SOMEWHAT ANXIOUS AND NOT ABLE TO GIVE MORE DETAILS) [facility] Past Medical History Medical History (Updated 11/16/22 @ 08:57 by Deloris Xavier PA-C) Arthritis of both knees Chronic low back pain with right-sided sciatica COPD (chronic obstructive pulmonary disease) Depression with anxiety High cholesterol History of colon polyps (~2009) History of DVT (deep vein thrombosis) (~2013) History of fibromyalgia History of opioid abuse History of pulmonary embolism (~2013) Lymphedema On anticoagulant therapy Osteopenia (~2009) Ovarian cyst Urinary incontinence Family History Family History Brother Cancer of pancreas Surgical History Surgical History (Updated 11/16/22 @ 08:47 by Deloris Xavier PA-C) History of colonoscopy History of dilation and curettage History of left breast biopsy History of surgery on lower extremity History of tonsillectomy S/P thyroid biopsy Social History Social History Household Members: None Housing: Apartment Do you presently have visiting nurse or other home services: Yes ([employer]) Alcohol intake: never Patient Tobacco Use Status: Former Tobacco user Tobacco use type: Cigarette Cigarette Packs Per Day: 0.5 Cigarettes Per Day: 10.0 Years Smoked: 54 Substance Use Type: Marijuana Advance Directives Date on File: 10/30/22 service: No Current occupational status: disabled Meds Allergies Allergy/AdvReac Type Severity Reaction Status Date / Time No Known Allergies Allergy Verified 11/14/22 07:33 Active Medications: Current Medications Acetaminophen (Acetaminophen 325 Mg Tablet) 650 mg PO Q6H PRN PRN Reason: Pain, Mild (Pain Scale 1-3) Acetazolamide (Acetazolamide 250 Mg Tablet) 250 mg PO BID [facility] Aripiprazole (Aripiprazole 2 Mg Tablet) 2 mg PO BID [facility] Last Admin: 11/16/22 07:14 Dose: 2 mg Atorvastatin Calcium (Atorvastatin Calcium 10 Mg Tablet) 10 mg PO DAILY [facility] Last Admin: 11/16/22 07:14 Dose: 10 mg Clonazepam (Clonazepam 1 Mg Tablet) 1 mg PO BID [facility] Last Admin: 11/16/22 07:14 Dose: 1 mg Albuterol Sulfate 2.5 mg/ (Ipratropium [place] 0.5 mg) 0 mg INHALE RQ4H WHILE AWAKE [facility] Last Admin: 11/16/22 10:19 Dose: 1 each Albuterol Sulfate 2.5 mg/ (Ipratropium [place] 0.5 mg) 0 mg INHALE RQ4H PRN PRN Reason: Wheezing Cyclobenzaprine HCl (Cyclobenzaprine Hcl 10 Mg Tablet) 10 mg PO Q8H [facility] Last Admin: 11/16/22 06:13 Dose: 10 mg Duloxetine HCl (Duloxetine Hcl 60 Mg Capsule.Dr) 60 mg PO DAILY [facility] Last Admin: 11/16/22 07:15 Dose: 60 mg Fluticasone/Vilanterol (Fluticasone/Vilanterol 100/25 Blst.W.Dev) 1 puff INHALE RDAILY [facility] Last Admin: 11/16/22 07:53 Dose: 1 puff Gabapentin (Gabapentin 300 Mg Capsule) 600 mg PO TID [facility] Last Admin: 11/16/22 07:14 Dose: 600 mg Hydroxyzine HCl (Hydroxyzine Hcl 25 Mg Tablet) 25 mg PO TID PRN PRN Reason: Anxiety Ceftriaxone Sodium 1 gm/ (Sodium Chloride) 50 mls @ 100 mls/hr IV Q24H [facility] Last Infusion: 11/16/22 07:12 Dose: Infused Azithromycin 500 mg/ Sodium (Chloride) 250 mls @ 125 mls/hr IV Q24H [facility] Last Infusion: 11/16/22 09:27 Dose: Infused Melatonin (Melatonin 3 Mg Tablet) 6 mg PO BEDTIME PRN PRN Reason: Insomnia Methylprednisolone Sodium Succinate (Methylprednisolone Sod Succ 40 Mg/Ml Vial) 40 mg IVPUSH Q12H [facility] Last Admin: 11/16/22 11:36 Dose: 40 mg Ondansetron HCl (Ondansetron Hcl 4 Mg/2 Ml Vial) 4 mg IVPUSH Q8H PRN PRN Reason: Nausea and Vomiting Pharmacy Consult (Consult Rx Perform Med Rec) 1 each MISCELLANE ONCE PRN PRN Reason: Consult order Rivaroxaban (Rivaroxaban 20 Mg Tablet) 20 mg PO DAILY [facility] Last Admin: 11/16/22 07:14 Dose: 20 mg Sodium Chloride (0.9 % Sodium Chloride Flush 3 Ml Syringe) 3 ml IVFLUSH QSHIFT [facility] Last Admin: 11/16/22 07:15 Dose: 3 ml Trazodone HCl (Trazodone Hcl 50 Mg Tablet) 50 mg PO BEDTIME PRN PRN Reason: Insomnia Vitamin D (Cholecalciferol (Vitamin D3) 25 Mcg Tablet) 25 mcg PO DAILY [facility] Last Admin: 11/16/22 07:15 Dose: 25 mcg Home Medications Medication Instructions Recorded Confirmed Last Taken Type albuterol sulfate 90 mcg/actuation 2 puff inhalation Q6H PRN sob 08/23/22 11/13/22 10/28/22 History aerosol inhaler aripiprazole 2 mg tablet 2 mg PO BID 08/23/22 11/13/22 10/28/22 History atorvastatin 10 mg tablet 10 mg PO DAILY 08/23/22 11/13/22 10/28/22 History clonazepam 1 mg tablet 1 mg PO BID 08/23/22 11/13/22 10/28/22 History fluticasone 250 mcg-salmeterol 50 1 ea inhalation BID 08/23/22 11/13/22 10/28/22 History mcg/dose blistr powdr for inhalation (Wixela Inhub) furosemide 40 mg tablet 40 mg PO BID 08/23/22 11/13/22 10/28/22 History rivaroxaban 20 mg tablet (Xarelto) 20 mg PO DAILY 08/23/22 11/13/22 10/28/22 History duloxetine 20 mg capsule,delayed 40 mg PO DAILY 08/31/22 11/13/22 10/28/22 History release duloxetine 60 mg capsule,delayed 60 mg PO DAILY 08/31/22 11/13/22 10/28/22 History release gabapentin 300 mg capsule 600 mg PO TID 08/31/22 11/13/22 10/28/22 History cholecalciferol (vitamin D3) 25 25 mcg PO DAILY 10/30/22 11/13/22 Unknown History mcg (1,000 unit) tablet hydroxyzine pamoate 25 mg capsule 1 cap PO TID PRN Anxiety 11/13/22 11/13/22 Unknown History (Vistaril) nystatin 100,000 unit/mL oral 4 ml PO QID 11/13/22 11/13/22 Unknown History suspension potassium chloride 20 mEq 1 tab PO DAILY 11/13/22 11/13/22 Unknown History tablet,extended release trazodone 50 mg tablet 1 tab PO BEDTIME PRN Insomnia 11/13/22 11/13/22 Unknown History Physical Exam Vital Signs: Vital Signs: Last Vital Signs Temp 97.1 F 11/16/22 07:36 Pulse 107 H 11/16/22 10:20 Resp 18 11/16/22 10:20 BP 121/70 11/16/22 07:36 Pulse Ox 89 L 11/16/22 07:36 O2 Del Method 11/16/22 07:36 O2 Flow Rate 6 11/16/22 07:36 BMI result Body Mass Index 24.0 Const: General: healthy appearing, comfortable, alert and awake Orientation/consciousness: patient oriented x3 HEENT: Head: Yes normal to inspection General nose exam: No nasal polyps present and No nasal discharge present Face and sinus: Yes sinuses nontender Mouth: oropharynx normal Throat: Yes posterior oropharynx normal Eyes: General: appearance normal, both eyes and all related structures Neck: Neck: Yes normal visual inspection, Yes no lymphadenopathy, Yes trachea midline and Yes no JVD Thyroid: Thyroid normal Chest: Chest palpation & inspection: normal inspection of the chest, normal palpation of entire chest wall and no tenderness Resp: Other: PERCUSSION NOTE RESONANT, BREATH SOUNDS ARE VERY DISTANT ON BOTH SIDES, PATIENT HAS PROLONGED EXPIRATORY PHASE. THERE ARE INSPIRATORY WHEEZES OVER THE LOWER LOBES ESPECIALLY ON THE LEFT SIDE. ALSO HAS A FEW BASILAR CREPITATIONS OVER THE LEFT SIDE. Cardio: Palpation: normal PMI Rate: regular rate Rhythm: regular rhythm Heart sounds: Gallop heart sound present and Murmur heart sound present GI: Palpation (GI): Soft to palpation, nontender, No hepatosplenomegaly present and no masses Auscultation: normal bowel sounds Back/Spine/Pelvis: Other: NOT EXAMINED Thoracic/Lumbar Spine: thoracic and lumbar spine normal to inspection Skin: General skin exam: no rashes or lesions noted Neuro: General: patient oriented x3 and no focal motor deficits Cranial nerves: Yes CN's II-XII intact bilaterally Extrem: General: Yes normal to inspection, Yes no clubbing, cyanosis or edema and Yes no calf tenderness Psych: Speech and movement: Normal speech and movement present Affect: Anxious affect present Results Laboratory Findings 11/13/22 22:00 11/14/22 02:56 ABG, PT/INR, D-dimer: PT/INR, D-dimer PT 14.2 SEC (10.0-13.1) H 11/13/22 22:00 INR 1.2 (0.9-1.1) H 11/13/22 22:00 Abnormal lab findings: Abnormal Labs 11/13/22 11/13/22 11/13/22 22:00 22:00 22:00 WBC 15.6 H Neut % (Auto) 80.8 H Lymph % (Auto) 13.6 L Abs Immat Gran (auto) 0.05 H Absolute Neuts (auto) 12.6 H PT 14.2 H INR 1.2 H ABG pH at Pt Temp ABG pCO2 at Pt Temp ABG pO2 at Pt Temp ABG HCO3 VBG pH VBG HCO3 Potassium 2.5 L* D Chloride 86 L Carbon Dioxide 39 H Random Glucose 157 H Alkaline Phosphatase 128 H Troponin I High Sens B-Natriuretic Peptide Urine Fentanyl Screen U Benzodiazepines Scrn Urine Cocaine Screen U Marijuana (THC) Screen 11/13/22 11/13/22 11/13/22 22:00 22:00 22:08 WBC Neut % (Auto) Lymph % (Auto) Abs Immat Gran (auto) Absolute Neuts (auto) PT INR ABG pH at Pt Temp ABG pCO2 at Pt Temp ABG pO2 at Pt Temp ABG HCO3 VBG pH 7.47 H VBG HCO3 45 H Potassium Chloride Carbon Dioxide Random Glucose Alkaline Phosphatase Troponin I High Sens 209.9 H* B-Natriuretic Peptide 290 H Urine Fentanyl Screen U Benzodiazepines Scrn Urine Cocaine Screen U Marijuana (THC) Screen 11/14/22 11/14/22 11/14/22 02:56 02:56 03:00 WBC Neut % (Auto) Lymph % (Auto) Abs Immat Gran (auto) Absolute Neuts (auto) PT INR ABG pH at Pt Temp ABG pCO2 at Pt Temp ABG pO2 at Pt Temp ABG HCO3 VBG pH 7.44 H VBG HCO3 45 H Potassium Chloride 91 L Carbon Dioxide 32 H Random Glucose 172 H Alkaline Phosphatase Troponin I High Sens 154.8 H* B-Natriuretic Peptide Urine Fentanyl Screen U Benzodiazepines Scrn Urine Cocaine Screen U Marijuana (THC) Screen 11/14/22 11/14/22 11/14/22 05:48 06:50 07:14 WBC Neut % (Auto) Lymph % (Auto) Abs Immat Gran (auto) Absolute Neuts (auto) PT INR ABG pH at Pt Temp 7.46 H ABG pCO2 at Pt Temp 64 H* ABG pO2 at Pt Temp 67 L ABG HCO3 47 H VBG pH VBG HCO3 Potassium Chloride Carbon Dioxide Random Glucose Alkaline Phosphatase Troponin I High Sens 127.0 H* B-Natriuretic Peptide Urine Fentanyl Screen POSITIVE H U Benzodiazepines Scrn POSITIVE H Urine Cocaine Screen POSITIVE H U Marijuana (THC) Screen POSITIVE H 11/16/22 10:26 WBC Neut % (Auto) Lymph % (Auto) Abs Immat Gran (auto) Absolute Neuts (auto) PT INR ABG pH at Pt Temp 7.51 H ABG pCO2 at Pt Temp 57 H ABG pO2 at Pt Temp 64 L ABG HCO3 46 H VBG pH VBG HCO3 Potassium Chloride Carbon Dioxide Random Glucose Alkaline Phosphatase Troponin I High Sens B-Natriuretic Peptide Urine Fentanyl Screen U Benzodiazepines Scrn Urine Cocaine Screen U Marijuana (THC) Screen Microbiology: Microbiology 11/13/22 22:00 Blood - Venous Blood Culture - Preliminary No growth after 48 hours. 11/13/22 22:00 Blood - Venous Blood Culture - Preliminary No growth after 48 hours. Diagnostic Findings Chest x-ray: report reviewed and image reviewed Assessment and Plan (1) COPD exacerbation: Status: Acute (2) Respiratory failure: Status: Acute (3) Solid nodule of lung greater than 8 mm in diameter: Status: Acute Plan THIS PATIENT HAS, SEVERE OBSTRUCTIVE AIRWAY DISORDER. ALONG WITH RESPIRATORY FAILURE CAUSING HYPOXEMIA AND HYPERCAPNIA. A BLOOD GAS STUDY IS CONSISTENT WITH A CHRONIC COMPENSATED HYPERCAPNIAC RESPIRATORY FAILURE. SHE ALSO HAS SIGNIFICANT HYPOXEMIA WHICH NEEDS TREATMENT WITH OXYGEN BUT SHE HAS NOT HAD IT AT HOME. SHE SEEMS TO HAVE A VERY POOR UNDERSTANDING OF HEARD LUNG DISEASE AND TREATMENT PLANNING. AT THIS POINT I RECOMMEND THAT WE SHOULD CONTINUE THE PRESENT TREATMENT. TRY TO WEAN DOWN ON THE FIO2, GOAL WOULD BE TO KEEP O2 SAT 90% AND ABOVE. I EXPLAINED TO HER AND ENCOURAGED TO DO DEEP BREATHING EXERCISES. AND P.R.N. SHE FERRARA MARKEDLY ELEVATED HCO3, THIS MAY HAVE BEEN CONTRIBUTED BY HER INITIAL HYPOKALEMIA. SHE SHOULD BE STARTED ON DIAMOX 250 MG B.I.D., AND AT DISCHARGE REDUCED TO ONCE A DAY. MAY CHANGE IV SOLU-MEDROL TO ORAL PREDNISONE 40 MG A DAY, TO BE TAPERED DOWN BY 10 MG EVERY WEEK. CONTINUE BREO-201 INHALATION DAILY. ALSO CONTINUE DUONEB UPDRAFTS Q 6 HOURS WHILE AWAKE, AND P.R.N.. Time Spent With Patient Time: Total time managing care of this patient today ____ minutes. Procedures Date of Service Date of Service: 11/16/22
[2022-11-16] MEDS: acetaZOLAMIDE 250 MG TABLET PO ×2 (13:51→19:48)
--- NOTE | 2022-11-16 18:22 | PC.NURSE ---
Pt is alert and oriented x4. Pt continues to desatt to high 80s even with 6L O2 via [place]. O2 saturation checked simultaneously bilaterally and both sides were at 85%. O2 increased to 7L [address] [place]. Pt seen by pulmonolgist. Blood gases obtained and pt is hypoxemic and hypercapnic.
[2022-11-16] MEDS: polyethylene glycoL 3350 17 GM POWD.PACK PO (18:45)
[2022-11-16] MEDS: Milk of Magnesia 30 ML ORAL.SUSP PO (18:45)
[2022-11-16] MEDS: Docusate Sodium 100 MG CAPSULE PO (19:48)
[2022-11-17] VITALS (10 sets, daily range): BP systolic 121–126; BP diastolic 68–70; PULSE 82–92; RESP 18–20; TEMP 36.3–37; O2SAT 85–96
[2022-11-17] MEDS: Cyclobenzaprine HCl 10 MG TABLET PO ×2 (06:13→15:43)
[2022-11-17] MEDS: cefTRIAXone sodium 1 GM in 0.9 % Sodium Chloride 50 ML IV (06:14)
[2022-11-17] MEDS: Fluticasone/Vilanterol 100/25 BLST.W.DEV 1 PUFF INHALE (07:31)
[2022-11-17] MEDS: 0.9 % Sodium Chloride Flush 3 ML SYRINGE IVFLUSH ×3 (08:33→20:52)
[2022-11-17] MEDS: Azithromycin 500 MG in 0.9 % Sodium Chloride 250 ML 125 MG IV (08:33)
[2022-11-17] MEDS: methylPREDNISolone Sod Succ 40 MG/ML VIAL IVPUSH ×2 (08:34→20:51)
[2022-11-17] MEDS: DULoxetine HCl 60 MG CAPSULE.DR PO (08:35)
[2022-11-17] MEDS: Atorvastatin Calcium 10 MG TABLET PO (08:35)
[2022-11-17] MEDS: ARIPiprazole 2 MG TABLET PO ×2 (08:35→20:51)
[2022-11-17] MEDS: Docusate Sodium 100 MG CAPSULE PO ×2 (08:35→20:51)
[2022-11-17] MEDS: Rivaroxaban 20 MG TABLET PO (08:35)
[2022-11-17] MEDS: Cholecalciferol (Vitamin D3) 25 MCG TABLET PO (08:35)
[2022-11-17] MEDS: acetaZOLAMIDE 250 MG TABLET PO ×2 (08:35→20:51)
[2022-11-17] MEDS: Gabapentin 300 MG CAPSULE 600 MG PO ×3 (08:35→20:51)
[2022-11-17] MEDS: clonazePAM 1 MG TABLET PO ×2 (08:35→20:51)
--- NOTE | 2022-11-17 09:16 | P.PNIM_ITS ---
Subjective Subjective Date of Service: 11/17/22 Interval History: f/u on acute on chronic hypoxic respiratory failreu d/t COPD Doing much better today, hypoxia is much better, presently 92 on 2 liters Review of Systems no sob no cp Physical Exam Vital Signs: Vital Signs: Last Vital Signs Temp 97.3 F 11/17/22 07:31 Pulse 82 11/17/22 07:31 Resp 19 11/17/22 07:31 BP 124/70 11/17/22 07:31 Pulse Ox 96 11/17/22 07:31 O2 Del Method 11/17/22 07:31 O2 Flow Rate 5.0 11/17/22 07:31 BMI result Body Mass Index 24.0 Const: Other: General: AO X 3, no acute distress Resp: scattered wheezes, good air entry, mild wob CVS: S1,S2,RRR GI: +BS, NT, no distention Skin: No rash Neuro: motor grossly intact Psych: appropriate affect Objective Data Active Medications Acetaminophen (Acetaminophen 325 Mg Tablet) 650 mg PO Q6H PRN PRN Reason: Pain, Mild (Pain Scale 1-3) Acetazolamide (Acetazolamide 250 Mg Tablet) 250 mg PO BID [facility] Last Admin: 11/17/22 08:35 Dose: 250 mg Documented By: NARINDER Aripiprazole (Aripiprazole 2 Mg Tablet) 2 mg PO BID [facility] Last Admin: 11/17/22 08:35 Dose: 2 mg Documented By: NARINDER Atorvastatin Calcium (Atorvastatin Calcium 10 Mg Tablet) 10 mg PO DAILY [facility] Last Admin: 11/17/22 08:35 Dose: 10 mg Documented By: NARINDER Clonazepam (Clonazepam 1 Mg Tablet) 1 mg PO BID [facility] Last Admin: 11/17/22 08:35 Dose: 1 mg Documented By: NARINDER Albuterol Sulfate 2.5 mg/ (Ipratropium [place] 0.5 mg) 0 mg INHALE RQ4H WHILE AWAKE [facility] Last Admin: 11/17/22 07:23 Dose: 1 each Documented By: KILEY Albuterol Sulfate 2.5 mg/ (Ipratropium [place] 0.5 mg) 0 mg INHALE RQ4H PRN PRN Reason: Wheezing Cyclobenzaprine HCl (Cyclobenzaprine Hcl 10 Mg Tablet) 10 mg PO Q8H [facility] Last Admin: 11/17/22 06:13 Dose: 10 mg Documented By: DIMA Docusate Sodium (Docusate Sodium 100 Mg Capsule) 100 mg PO BID [facility] Last Admin: 11/17/22 08:35 Dose: 100 mg Documented By: NARINDER Duloxetine HCl (Duloxetine Hcl 60 Mg Capsule.Dr) 60 mg PO DAILY [facility] Last Admin: 11/17/22 08:35 Dose: 60 mg Documented By: NARINDER Fluticasone/Vilanterol (Fluticasone/Vilanterol 100/25 Blst.W.Dev) 1 puff INHALE RDAILY [facility] Last Admin: 11/17/22 07:31 Dose: 1 puff Documented By: BLASCKassandra Gabapentin (Gabapentin 300 Mg Capsule) 600 mg PO TID [facility] Last Admin: 11/17/22 08:35 Dose: 600 mg Documented By: NARINDER Hydroxyzine HCl (Hydroxyzine Hcl 25 Mg Tablet) 25 mg PO TID PRN PRN Reason: Anxiety Ceftriaxone Sodium 1 gm/ (Sodium Chloride) 50 mls @ 100 mls/hr IV Q24H [facility] Last Infusion: 11/17/22 06:51 Dose: 0 mls/hr Documented By: DIMA Azithromycin 500 mg/ Sodium (Chloride) 250 mls @ 125 mls/hr IV Q24H [facility] Last Admin: 11/17/22 08:33 Dose: 125 mls/hr Documented By: NARINDER Magnesium Hydroxide (Milk Of Magnesia 30 Ml Oral.Susp) 30 ml PO DAILY PRN PRN Reason: Constipation Last Admin: 11/16/22 18:45 Dose: 30 ml Documented By: CHINAENOAL Melatonin (Melatonin 3 Mg Tablet) 6 mg PO BEDTIME PRN PRN Reason: Insomnia Methylprednisolone Sodium Succinate (Methylprednisolone Sod Succ 40 Mg/Ml Vial) 40 mg IVPUSH Q12H [facility] Last Admin: 11/17/22 08:34 Dose: 40 mg Documented By: NARINDER Ondansetron HCl (Ondansetron Hcl 4 Mg/2 Ml Vial) 4 mg IVPUSH Q8H PRN PRN Reason: Nausea and Vomiting Pharmacy Consult (Consult Rx Perform Med Rec) 1 each MISCELLANE ONCE PRN PRN Reason: Consult order Polyethylene Glycol (Polyethylene Glycol 3350 17 Gm Powd.Pack) 17 gm PO DAILY PRN PRN Reason: Constipation Last Admin: 11/16/22 18:45 Dose: 17 gm Documented By: ASHLEY Rivaroxaban (Rivaroxaban 20 Mg Tablet) 20 mg PO DAILY [facility] Last Admin: 11/17/22 08:35 Dose: 20 mg Documented By: NARINDER Sodium Chloride (0.9 % Sodium Chloride Flush 3 Ml Syringe) 3 ml IVFLUSH QSHIFT [facility] Last Admin: 11/17/22 08:33 Dose: 3 ml Documented By: NARINDER Trazodone HCl (Trazodone Hcl 50 Mg Tablet) 50 mg PO BEDTIME PRN PRN Reason: Insomnia Vitamin D (Cholecalciferol (Vitamin D3) 25 Mcg Tablet) 25 mcg PO DAILY [facility] Last Admin: 11/17/22 08:35 Dose: 25 mcg Documented By: NARINDER Labs 11/13/22 22:00 11/14/22 02:56 Labs: Laboratory Results - last 24 hr 11/16/22 10:26 O2 Saturation 90.0 ABG pH at Pt Temp 7.51 H ABG pCO2 at Pt Temp 57 H ABG pO2 at Pt Temp 64 L ABG HCO3 46 H ABG Base Excess (Actual) 19.8 Assessment and Plan (1) Pneumonia: Status: Acute (2) Chronic lung disease: Status: Acute (3) Respiratory failure: Status: Acute (4) Acute hypokalemia: Status: Acute Plan 67-year-old female with pertinent history of COPD, mood disorder, hyperlipidemia, fibromyalgia who presents to the emergency department for evaluation of dyspnea. #. acute on chronic hypoxemic hypercapnic respiratory failure:? Patient was discharged on 2 L supplemental oxygen during previous admission but was without oxygen at home due to logistics.? continue O2 with goal of O2 88 to 93 only, get ABG and consider pulmonology consultation #. community-acquired pneumonia: Previously right-sided pneumonia on imaging.? Currently patient has left basilar opacity.? continue IV abx and change to PO at discharge #.? COPD exacerbation due to above:? Continue solumedrol 60 and scheduled and p.r.n. DuoNebs. Continue home inhaler #.? lung nodule:? Observed on CT chest during previous admission.? Will need outpatient follow up by Dr. Weathers #. hyperlipidemia: Continue statin #. mood disorder/fibromyalgia: Continue home mood stabilizer #.? elevated troponin: likely due to demand ischemia.? Repeat.? Patient asymptomatic ?DVT prophylaxis: Xarelto 20mg daily ?regular diet Full code inpatient need d/t acute hypoxic respriatory failure d/t COPD still need IV steroid and adjustemt of O2 in setting of severe hypoxic and close monitoring Pulmonology recommends pulmonoary rehab but she doesn't want to go Time Spent With Patient Time: Total time managing care of this patient today ____ minutes. Quality Stroke Does the patient have a stroke diagnosis?: No VTE Prior VTE?: No VTE Risk Level:: Medical - moderate - high VTE Device Contraindication: Treatment Not Indicated VTE Drug Contraindication: N/A - Med Ordered
--- NOTE | 2022-11-17 10:41 | MHC.CM.PN ---
PER HOSPITALIST PT TO REMAIN INPT OVERNIGHT AND ANTIC D/C HOME W/[facility]UMP OF [employer] W/HOME NEW HOME O2, [employer] [facility] FOR TRANSPORT.
[2022-11-18] MEDS: Cyclobenzaprine HCl 10 MG TABLET PO ×2 (00:22→06:17)
[2022-11-18 03:30] VITALS: BP 138/89; PULSE 79; RESP 17; TEMP 36.3; O2SAT 95
[2022-11-18] MEDS: cefTRIAXone sodium 1 GM in 0.9 % Sodium Chloride 50 ML IV (06:18)
--- NOTE | 2022-11-18 06:20 | PC.NURSE ---
Assumed care of patient approx. 184. Patient alert, oriented * 4; occasional wiftiness noted in statements made. Pt. recvd scheduled pain medicaitons with positive effect. OOB to bathroom with stand by assist and portable O2. Patient voiding well, tolerating po without incident. Patient experienced a small, non-descript stool. Encourage patient to ambulate, take fluids as tolerated, PRN stool softeners. Resting. All questions and immediate care needs addressed.
--- NOTE | 2022-11-18 07:19 | P.PNIM_ITS ---
Subjective Subjective Date of Service: 11/18/22 Interval History: f/u on acute on chronic hypoxic respiratory failreu d/t COPD Doing much better today, hypoxia is much better, presently 92 on 2 liters Review of Systems no sob no cp Physical Exam Vital Signs: Vital Signs: Last Vital Signs Temp 97.3 F 11/18/22 03:30 Pulse 79 11/18/22 03:30 Resp 17 11/18/22 03:30 BP 138/89 11/18/22 03:30 Pulse Ox 95 11/18/22 03:30 O2 Del Method 11/18/22 03:30 O2 Flow Rate 5 11/18/22 03:30 BMI result Body Mass Index 24.0 Const: Other: General: AO X 3, no acute distress Resp: scattered wheezes, good air entry, mild wob CVS: S1,S2,RRR GI: +BS, NT, no distention Skin: No rash Neuro: motor grossly intact Psych: appropriate affect Objective Data Active Medications Acetaminophen (Acetaminophen 325 Mg Tablet) 650 mg PO Q6H PRN PRN Reason: Pain, Mild (Pain Scale 1-3) Acetazolamide (Acetazolamide 250 Mg Tablet) 250 mg PO BID [facility] Last Admin: 11/17/22 20:51 Dose: 250 mg Documented By: KHOA Aripiprazole (Aripiprazole 2 Mg Tablet) 2 mg PO BID [facility] Last Admin: 11/17/22 20:51 Dose: 2 mg Documented By: KHOA Atorvastatin Calcium (Atorvastatin Calcium 10 Mg Tablet) 10 mg PO DAILY [facility] Last Admin: 11/17/22 08:35 Dose: 10 mg Documented By: NARINDER Clonazepam (Clonazepam 1 Mg Tablet) 1 mg PO BID [facility] Last Admin: 11/17/22 20:51 Dose: 1 mg Documented By: KHOA Albuterol Sulfate 2.5 mg/ (Ipratropium [place] 0.5 mg) 0 mg INHALE RQ4H WHILE AWAKE [facility] Last Admin: 11/17/22 18:59 Dose: 1 each Documented By: MARC Albuterol Sulfate 2.5 mg/ (Ipratropium [place] 0.5 mg) 0 mg INHALE RQ4H PRN PRN Reason: Wheezing Cyclobenzaprine HCl (Cyclobenzaprine Hcl 10 Mg Tablet) 10 mg PO Q8H [facility] Last Admin: 11/18/22 06:17 Dose: 10 mg Documented By: KHOA Docusate Sodium (Docusate Sodium 100 Mg Capsule) 100 mg PO BID [facility] Last Admin: 11/17/22 20:51 Dose: 100 mg Documented By: KHOA Duloxetine HCl (Duloxetine Hcl 60 Mg Capsule.Dr) 60 mg PO DAILY [facility] Last Admin: 11/17/22 08:35 Dose: 60 mg Documented By: NARINDER Fluticasone/Vilanterol (Fluticasone/Vilanterol 100/25 Blst.W.Dev) 1 puff INHALE RDAILY [facility] Last Admin: 11/17/22 07:31 Dose: 1 puff Documented By: KILEY Gabapentin (Gabapentin 300 Mg Capsule) 600 mg PO TID [facility] Last Admin: 11/17/22 20:51 Dose: 600 mg Documented By: KHOA Hydroxyzine HCl (Hydroxyzine Hcl 25 Mg Tablet) 25 mg PO TID PRN PRN Reason: Anxiety Ceftriaxone Sodium 1 gm/ (Sodium Chloride) 50 mls @ 100 mls/hr IV Q24H [facility] Last Admin: 11/18/22 06:18 Dose: 100 mls/hr Documented By: KHOA Azithromycin 500 mg/ Sodium (Chloride) 250 mls @ 125 mls/hr IV Q24H [facility] Last Infusion: 11/17/22 10:33 Dose: 0 mls/hr Documented By: NARINDER Magnesium Hydroxide (Milk Of Magnesia 30 Ml Oral.Susp) 30 ml PO DAILY PRN PRN Reason: Constipation Last Admin: 11/16/22 18:45 Dose: 30 ml Documented By: CHINAENOAL Melatonin (Melatonin 3 Mg Tablet) 6 mg PO BEDTIME PRN PRN Reason: Insomnia Methylprednisolone Sodium Succinate (Methylprednisolone Sod Succ 40 Mg/Ml Vial) 40 mg IVPUSH Q12H [facility] Last Admin: 11/17/22 20:51 Dose: 40 mg Documented By: KHOA Ondansetron HCl (Ondansetron Hcl 4 Mg/2 Ml Vial) 4 mg IVPUSH Q8H PRN PRN Reason: Nausea and Vomiting Pharmacy Consult (Consult Rx Perform Med Rec) 1 each MISCELLANE ONCE PRN PRN Reason: Consult order Polyethylene Glycol (Polyethylene Glycol 3350 17 Gm Powd.Pack) 17 gm PO DAILY PRN PRN Reason: Constipation Last Admin: 11/16/22 18:45 Dose: 17 gm Documented By: ASHLEY Rivaroxaban (Rivaroxaban 20 Mg Tablet) 20 mg PO DAILY [facility] Last Admin: 11/17/22 08:35 Dose: 20 mg Documented By: NARINDER Sodium Chloride (0.9 % Sodium Chloride Flush 3 Ml Syringe) 3 ml IVFLUSH QSHIFT [facility] Last Admin: 11/17/22 20:52 Dose: 3 ml Documented By: KHOA Trazodone HCl (Trazodone Hcl 50 Mg Tablet) 50 mg PO BEDTIME PRN PRN Reason: Insomnia Vitamin D (Cholecalciferol (Vitamin D3) 25 Mcg Tablet) 25 mcg PO DAILY [facility] Last Admin: 11/17/22 08:35 Dose: 25 mcg Documented By: NARINDER Labs 11/13/22 22:00 11/14/22 02:56 Assessment and Plan (1) Right upper lobe pulmonary nodule: Status: Acute (2) Respiratory failure: Status: Acute (3) COPD (chronic obstructive pulmonary disease): Status: Acute Plan #COPD exacerbation, acute on chronic hypoxic respiratory failure and Pneumonia Patient was readmitted due to acute hypoxic, and hypercarbic respiraotory failure due to COPD exacerbation. It is of note that she was recently discharged with home O2, unfortunately when they came to deliver the oxygen She was refused stating that the tank was too big and that she did not have room in her single room apartment. CXR also suggest possible penumonia. She has been treated with Ceftriaxone and Azithromycin and has been on IV steroid and bronchidilators by [facility] for COPD and overall has made signficant recovery and present, O2 sat at 93 on 2 liters. She was seen in consultation by Dr. Del Angel and recommended Diamox for a few days and addtionally also recommended pulmonary rehab but the patient is adamant that she doesn't want this, she is also now agreable to have the oxygen at home. Prednisone derrek at discharge #. community-acquired pneumonia: Previously right-sided pneumonia on imaging.? Currently patient has left basilar opacity and has been treated with Azithro and Ceftriaxone as above and will discharge with Ceftin for 4 more days. She afebrile #.? lung nodule:? Observed on CT chest during previous admission and the plan was to follow up with Dr. Weathers on outpatient basis #. hyperlipidemia: Continue statin #. Mood disorder/fibromyalgia: Continue home mood stabilizer #.? Elevated troponin: likely due to demand ischemia.? Repeat.? Patient asymptomatic Dispo: Home with VNA DVT prophylaxis: Xarelto need for inaptient: Acute hypoxic respiratory failure needing O2 titration and IV Abx for pneumonia/ Time Spent With Patient Time: Total time managing care of this patient today ____ minutes. Quality Stroke Does the patient have a stroke diagnosis?: No VTE Prior VTE?: No VTE Risk Level:: Medical - moderate - high VTE Device Contraindication: Treatment Not Indicated VTE Drug Contraindication: N/A - Med Ordered
[2022-11-18 07:38] VITALS: BP 133/90; PULSE 83; RESP 17; TEMP 36.3; O2SAT 93
[2022-11-18] MEDS: Azithromycin 500 MG in 0.9 % Sodium Chloride 250 ML 125 MG IV (08:09)
[2022-11-18] MEDS: Rivaroxaban 20 MG TABLET PO (08:11)
[2022-11-18] MEDS: Docusate Sodium 100 MG CAPSULE PO (08:11)
[2022-11-18] MEDS: Cholecalciferol (Vitamin D3) 25 MCG TABLET PO (08:11)
[2022-11-18] MEDS: ARIPiprazole 2 MG TABLET PO (08:11)
[2022-11-18] MEDS: clonazePAM 1 MG TABLET PO (08:11)
[2022-11-18] MEDS: Gabapentin 300 MG CAPSULE 600 MG PO (08:11)
[2022-11-18] MEDS: 0.9 % Sodium Chloride Flush 3 ML SYRINGE IVFLUSH (08:11)
[2022-11-18] MEDS: Atorvastatin Calcium 10 MG TABLET PO (08:11)
[2022-11-18] MEDS: DULoxetine HCl 60 MG CAPSULE.DR PO (08:11)
[2022-11-18] MEDS: acetaZOLAMIDE 250 MG TABLET PO (08:11)
[2022-11-18] MEDS: predniSONE 20 MG TABLET 40 MG PO (08:11)
[2022-11-18 08:48] VITALS: PULSE 92; RESP 20; O2SAT 94
[2022-11-18 12:00] VITALS: PULSE 92; RESP 16; O2SAT 93
--- NOTE | 2022-11-18 12:15 | P.DS_ITS ---
DS: Providers Provider Date of Service: 11/18/22 Date of admission: 11/14/22 05:59 Primary care physician: Jamie Casanova MD Consults: 11/16/22 09:38 Consult to Pulmonology Routine Consulting Provider: Trey Del Angel Reason for consultation: Acute copd exacerbation with severe hypoxia Has provider been notified: No DS: Diagnosis Discharge Diagnosis (1) Right upper lobe pulmonary nodule: Status: Acute (2) Respiratory failure: Status: Acute (3) COPD (chronic obstructive pulmonary disease): Status: Acute DS: Summary Hospital Course Hospital Course: Chief Complaint: Dyspnea ?this is a 67-year-old female with pertinent history of COPD, mood disorder, hyperlipidemia, fibromyalgia who presents to the emergency department for evaluation of dyspnea.? Patient was recently admitted on 10/30 and discharged on 11/01 with 2 L supplemental oxygen.? Patient was admitted for right-sided community-acquired pneumonia leading to COPD exacerbation.? Patient states she did not use oxygen at home.? at bedside stated that the oxygen concentrator company arrived but could not fit the oxygen tank through the door and hence the left without delivering.? The company was supposed to deliver additional oxygen tanks but never returned.? stated that patient also has been confused throughout the day.? Patient states her breathing worsened since discharge.? It is associated with cough and brownish sputum production.? Patient denies fever, chills, chest discomfort, palpitations, abdominal pain, changes in urinary or bowel habits Hospital course: #COPD exacerbation, acute on chronic hypoxic respiratory failure and Pneumonia Patient was readmitted due to acute hypoxic, and hypercarbic respiraotory failure due to COPD exacerbation. It is of note that she was recently discharged with home O2, unfortunately when they came to deliver the oxygen She was refused stating that the tank was too big and that she did not have room in her single room apartment. CXR also suggest possible penumonia. She has been treated with Ceftriaxone and Azithromycin and has been on IV steroid and bronchidilators by [facility] for COPD and overall has made signficant recovery and present, O2 sat? at 93 on 2 liters. She was seen in consultation by Dr. Del Angel and recommended Diamox for a few days and addtionally also recommended pulmonary rehab but the patient is adamant that she doesn't want this, she is also now agreable to have the oxygen at home.? Prednisone derrek at discharge #. community-acquired pneumonia: Previously right-sided pneumonia on imaging.? Currently patient has left basilar opacity and has been treated with Azithro and Ceftriaxone as above and will discharge with Ceftin for 4 more days. She afebrile #.? lung nodule:? Observed on CT chest during previous admission and the plan was to follow up with Dr. Weathers on outpatient basis #. hyperlipidemia: Continue statin #. Mood disorder/fibromyalgia: Continue home mood stabilizer #.? Elevated troponin: likely due to demand ischemia.? Repeat.? Patient asymptomatic Dispo: Home with VNA DVT prophylaxis: Xarelto need for inaptient: Acute hypoxic respiratory failure needing O2 titration and IV Abx for pneumonia/ Time Spent With Patient Time Spent with Patient Time attestation: Total time managing care of this patient today ____ minutes. Discharge coordination time: Greater than 30 minutes Quality: Safe Use of Opioids Does Pt have an Active Cancer Diagnosis on the Problem List?: No Quality: Stroke Does the patient have a stroke diagnosis?: No Physical Exam Vital Signs: Vital Signs: Last Vital Signs Temp 97.4 F 11/18/22 07:38 Pulse 92 11/18/22 12:00 Resp 16 11/18/22 12:00 BP 133/90 H 11/18/22 07:38 Pulse Ox 93 11/18/22 07:38 O2 Del Method 11/18/22 07:38 O2 Flow Rate 5 11/18/22 03:30 BMI result Body Mass Index 24.0 Const: Other: General: AO X 3, no acute distress Resp: CTA bilateral CVS: S1,S2,RRR GI: +BS, NT, no distention Skin: No rash Neuro: motor grossly intact Psych: appropriate affect Discharge Plan Discharge Anticipated Discharge Date/Time: 11/18/22 11:15 Patient Disposition: Home Health Service Discharge Diagnosis: Acute on chronic respiratory failure, COPD exacerbation Referrals: Jamie Casanova MD [Primary Care Provider] - 1 Week Discharge Medications: New cefuroxime axetil 500 mg tablet 500 mg PO BID 4 Days Qty: 8 0RF prednisone 10 mg tablet See Taper PO DIRECTED Qty: 20 0RF Taper: Prednisone 40 mg daily for 3 Days and 0 Hour 30 mg daily for 3 Days and 0 Hour 20 mg daily for 3 Days and 0 Hour 10 mg daily for 3 Days and 0 Hour Rx Instructions: see taper instructions Continued cyclobenzaprine 10 mg tablet 10 mg PO Q8H Qty: 14 0RF cholecalciferol (vitamin D3) 25 mcg (1,000 unit) Tablet 25 mcg PO DAILY nystatin 100,000 unit/mL suspension 4 ml PO QID trazodone 50 mg tablet 1 tab PO BEDTIME PRN (Reason: Insomnia) hydroxyzine pamoate [Vistaril] 25 mg capsule 1 cap PO TID PRN (Reason: Anxiety) potassium chloride 20 mEq tablet extended release 1 tab PO DAILY duloxetine 60 mg capsule,delayed release(DR/EC) 60 mg PO DAILY atorvastatin 10 mg tablet 10 mg PO DAILY clonazepam 1 mg tablet 1 mg PO BID albuterol sulfate 90 mcg/actuation HFA aerosol inhaler 2 puff inhalation Q6H PRN (Reason: sob) fluticasone propion-salmeterol [Wixela Inhub] 250-50 mcg/dose blister with device 1 ea inhalation BID furosemide 40 mg tablet 40 mg PO BID aripiprazole 2 mg tablet 2 mg PO BID Xarelto 20 mg tablet 20 mg PO DAILY duloxetine 20 mg capsule,delayed release(DR/EC) 40 mg PO DAILY gabapentin 300 mg capsule 600 mg PO TID Discharge Orders: Discharge Order (Routine); Ordered 11/18/22 Ordered By: Tung Humphrey Diet: Advance to usual diet Activity on Discharge: As tolerated Stand Alone Forms: Patient Portal Discharge page Care Plan Goals: Full recovery from pneumonia and COPD exacerbation Health Concerns: COPD exacerbation Plan of Treatment: Take antibiotics Cefuroxime for pnauemonia Take Prednisone for COPD and use oxygen as directed Follow up with your Doctor in a week Follow up with the pulmonoligst in 2 weeks for further evaluation of lung nodule seen on Cat scan during the last visit Assessment: as above Discharge Date/Time: 11/18/22 14:09
--- NOTE | 2022-11-18 13:45 | P.F2F_ITS ---
Service Date Service Date: 11/18/22 Encounter Date of encounter: 11/18/22 Reasons for Services Signs and symptoms assessed: shortness of breath Reason for long-term: CV/CP assess and/or care Homebound: Leaving the home is medically contraindicated at this time without the asist of a device and/or another person due th the listed conditions above and below. Reason homebound: shortness of breath with minimal effort Homebound supporting statement: Homebound due to chronic and acute respiratory failure with shortness of breath with minimal effort and therefore neeeds that assistance of another person Certification: Based on the above findings, I certify that this patient is confined to the home and needs intermittent long-term care, physical therapy and/or speech therapy, or continues to need occupational therapy. The patient is under my care, and I have initiated the establishment of the plan of care. The patient will be followed by a physician who will periodically review the plan of care. Time Spent With Patient Time: Total time managing care of this patient today ____ minutes.
--- NOTE | 2022-11-18 14:44 | MHC.CM.PN ---
Addendum entered by Alyssa León 11/20/22 12:45: [facility] ACCEPTING REFERRAL FACE TO FACE AND DC SUMMARY SENT VIA [facility] [employer] Addendum entered by Alyssa eLón 11/20/22 09:10: [facility] HAS RESPONDED TODAY WITH A DENIAL. CM SPOKE TO WHIT AT [facility] [phone] WHO REQUESTED REFERRAL BE SENT TO [facility] RE[facility]ERRAL SENT Original Note: PT TO DC HOME TODAY WITH REFERRAL TO [employer] TO TRANSPORT PT REPORTS SHE UNDERSTANDS SHE MUST CALL [employer] WHEN SHE ARRIVES HOME SO THEY MAY DELIVER HER O2 EQUIPMENT
== END 2022-11-18 14:09 | disposition home health service (06) | DRG 193 ==
LOC: HO.ED 11-14 03:42 → HO.EDOVER 11-14 06:02 → HO.S3 11-14 07:27
PROVIDERS: Admitting Provider Student in an Organized Health Care Education/Training Program; Emergency Provider Emergency Medicine; PCP Internal Medicine Medical Oncology; Visit Provider Internal Medicine
DX: J18.9 Pneumonia, unspecified organism (principal); J96.21 Acute and chronic respiratory failure with hypoxia; J96.22 Acute and chronic respiratory failure with hypercapnia; J44.0 Chronic obstructive pulmonary disease with (acute) lower respiratory infection; J44.1 Chronic obstructive pulmonary disease with (acute) exacerbation; I24.8 Other forms of acute ischemic heart disease; G93.40 Encephalopathy, unspecified; E78.5 Hyperlipidemia, unspecified; M79.7 Fibromyalgia; R91.1 Solitary pulmonary nodule; F39 Unspecified mood [affective] disorder; E87.6 Hypokalemia; Z91.199 Patient's noncompliance with other medical treatment and regimen due to unspecified reason; Z86.711 Personal history of pulmonary embolism; Z86.718 Personal history of other venous thrombosis and embolism; Z87.891 Personal history of nicotine dependence; Z79.01 Long term (current) use of anticoagulants; Z79.51 Long term (current) use of inhaled steroids; Z79.899 Other long term (current) drug therapy
CPT/HCPCS: 36415; 36600; 71045; 80048; 80076; 80307; 81003; 82803; 83605; 83880; 84484; 85025; 85610; 87040; 87502; 87635; 93005; 93308; 94640; 99285; C1758; J0456; J0696; J1956; J2920; J2930; J3475; Q9957

== ENCOUNTER → 2022-12-08 10:44 | Outpatient (BNVA) | payer OTHER, SELFPAY | PROVIDERS: PCP Internal Medicine Medical Oncology; Visit Provider Surgery | DX: R91.1 Solitary pulmonary nodule (principal); J43.9 Emphysema, unspecified; Z86.718 Personal history of other venous thrombosis and embolism; Z86.711 Personal history of pulmonary embolism; Z79.01 Long term (current) use of anticoagulants; Z99.81 Dependence on supplemental oxygen; Z99.3 Dependence on wheelchair | CPT/HCPCS: 99202 ==